=== PATIENT | female | born 1945 | race Caucasian/White ===

== ENCOUNTER 2022-11-17 12:19 | Outpatient (REF) | payer MEDICARE, SELFPAY ==
--- NOTE | ~2022-11-17 | XR_ITS ---
EXAMINATION: XR CHEST CLINICAL INFORMATION: Cough. COMPARISON: 04/20/2008 chest radiographs. TECHNIQUE: 2 views of the chest were obtained. FINDINGS: Mild coarsened interstitial markings are seen bilaterally without focal infiltrate or pleural effusions. The heart and mediastinal structures are unremarkable. XR/XR chest 2V IMPRESSION: Mild coarsened interstitial markings bilaterally are nonspecific, but are similar to the 2007 study. This could represent chronic interstitial changes. No definitive acute abnormality. Given the long interval between studies, if symptoms persist or worsen, short-term repeat PA and lateral views of chest are recommended to better assess for more acute change.
[2022-11-17 13:13] LABS: Binax Internal Control QC Valid; Binax Now Covid-19 Ag Negative (Negative); Binax Performed by: HO.BONILM
== END 2022-11-17 12:20 | disposition home or self-care (01) ==
LOC: HO.HMGCX 12:19
PROVIDERS: Visit Provider Physician Assistant Medical
DX: R05.9 Cough, unspecified (principal); Z20.822 Contact with and (suspected) exposure to COVID-19
CPT/HCPCS: 71046; 87811; C9803

== ENCOUNTER 2022-12-06 11:44 | Emergency (ER) | payer MEDICARE, SELFPAY ==
--- NOTE | ~2022-12-06 | XR_ITS ---
EXAMINATION: XR CHEST CLINICAL INFORMATION: Pain COMPARISON: 11/17/2022, 04/20/2008 TECHNIQUE: 2 views of the chest were obtained. FINDINGS: No peripheral infiltrate or effusion. Some central bronchial cuffing may indicate central airways disease. No peripheral infiltrate. There is no effusion. The cardiac silhouette is within normal limits. Calcification in the aortic arch. Some mild cephalization of the vasculature but this may be baseline for the patient. XR/XR chest 2V IMPRESSION: Some central bronchial thickening may represent airways disease such as asthma or bronchitis but there is no peripheral infiltrate. No effusion
--- NOTE | ~2022-12-06 | US_ITS ---
EXAMINATION: ULTRASOUND LOWER EXTREMITY ARTERIAL, LEFT TECHNIQUE: COLOR-FLOW DUPLEX IMAGING OF THE LEFT LOWER EXTREMITY ARTERIAL SYSTEM. VELOCITY MEASUREMENTS THROUGHOUT THE FEMORAL ARTERIES. CLINICAL INFORMATION: PAD evaluation claudication symptoms COMPARISON: None. Findings: LEFT FEMORAL RUNOFF VELOCITIES: The left common femoral artery measures 156cm/s and is biphasic. The left profunda femoral artery measures 58cm/s and is biphasic. Left proximal superficial femoral artery measures 146 cm/s and is biphasic. Mid superficial femoral artery measures 144cm/s and is biphasic. Distal left superficial femoral artery [id number] and is biphasic. Left popliteal velocity measures 130cm/s and is biphasic. Posterior tibial velocity is 61cm/s and flow is biphasic. Peroneal velocity is 29 cm/s and flow is monophasic Anterior tibial velocity not obtained. Dorsal pedis velocity not obtained. Left EDGARDO: Not obtained US/US arterial duplex LE LT IMPRESSION: 1. Patency of the visualized vasculature involving the left lower extremity. 2. Essentially biphasic waveforms throughout the visualized vasculature with monophasic waveforms of the peroneal artery suggesting elements of hemodynamic alterations in vascular flow.
--- NOTE | ~2022-12-06 | US_ITS ---
EXAMINATION: US VENOUS ULTRASOUND WITH DOPPLER LOWER EXTREMITY, LEFT CLINICAL INFORMATION: Pain COMPARISON: None available. TECHNIQUE: Ultrasound of the deep veins is performed from the hip to the calf with compression sonography and color and pulse Doppler assessment. Spectral analysis with color-flow imaging is performed. FINDINGS: There is normal venous compression and respiratory variation and augmented flow. The visualized common femoral vein, superficial femoral vein, profunda femoral vein, popliteal vein, and the trifurcation region shows no evidence of deep venous thrombosis. There is no significant popliteal fossa cyst. Contralateral common femoral vein is patent. If the patient's symptoms persist, followup ultrasound in 5 days 7 days might be of value to exclude proximal propagation from a non-visualized calf vein. US/US venous duplex LE LT IMPRESSION: No DVT demonstrated in the left lower extremity.
[2022-12-06 11:48] VITALS: BP 141/73; PULSE 105; RESP 20; TEMP 36.3; O2SAT 94; BMI 32.8
--- NOTE | 2022-12-06 11:50 | ECG_ITS ---
Test Reason : SOB Blood Pressure : / mmHG Vent. Rate : 090 BPM Atrial Rate : 090 BPM P-R Int : 130 ms QRS Dur : 086 ms QT Int : 374 ms P-R-T Axes : 076 068 010 degrees QTc Int : 457 ms Normal sinus rhythm Normal ECG When compared with ECG of 29-OCT-2011 20:10, Nonspecific T wave abnormality now evident in Lateral leads Referred By: Franklin Nuñez Electronically Signed By:Terrell Black
--- NOTE | 2022-12-06 11:52 | ED_ITS ---
HPI - General Adult General Chief complaint: General Medical Stated complaint: L leg pain Time Seen by Provider: 12/06/22 12:22 Source: patient Mode of arrival: wheelchair Limitations: no limitations History of Present Illness HPI narrative: Patient is a 76 year old female with a significant past medical history of COPD, PAD, DM, and a current smoker who presents today for left leg pain that started 3 days ago. She reports previous episode of leg pain about a year ago and was in a wheelchair for a few months after having stents placed in her right leg. Currently, she admits to intermittent claudication that is brought on by exertion; she states that lying down and resting alleviates symptoms. She describes intermittent pain in the left leg as pulling and reports that pain radiates throughout the entire leg, lasting for a short period of time. Patient denies any recent hospitalization and her mom of a brain aneurysm. She admits to cough and shortness of breath, which she attributes to the COPD. She denies fever, chills, swelling, chest pain or chest tightness. She reports no acute concerns at this time. Onset (ago): day(s) Location: left and lower extremity Radiation: other (radiates throughout entire left leg) Severity: moderate Severity scale (1-10): 8 Quality: aching and other ( pulling ) Pain Consistency: intermittent Relieving factors: rest Exacerbating factors: movement Associated symptoms: denies other symptoms Related Data Home Medications Medication Instructions Recorded Confirmed blood sugar diagnostic ([employer]Touch #10 ea 05/18/21 11/17/22 Ultra Test strips) blood-glucose meter (OneTouch #1 ea 05/18/21 11/17/22 Ultra2 Meter) lancets 33 gauge (OneTouch Delica #100 ea 05/18/21 11/17/22 Plus Lancet) Previous Rx's Medication Instructions Recorded albuterol sulfate 90 mcg/actuation 1 inh inhalation QID PRN shortness 11/17/22 aerosol inhaler (Ventolin HFA) of breath or wheezing #8.5 grams amoxicillin 875 mg-potassium 1 tab PO BID 7 days #14 tabs 11/17/22 clavulanate 125 mg tablet fluticasone 250 mcg-salmeterol 50 1 ea inhalation BID #60 ea 11/17/22 mcg/dose blistr powdr for inhalation (Wixela Inhub) prednisone 20 mg tablet 60 mg PO DAILY 3 days #30 tabs 11/17/22 aspirin 81 mg chewable tablet 81 mg PO DAILY #30 tabs 12/06/22 prednisone 20 mg tablet 20 mg PO DAILY 7 days #7 tabs 12/06/22 Allergies Allergy/AdvReac Type Severity Reaction Status Date / Time No Known Allergies Allergy Mild NKA Verified 12/06/22 11:47 Review of Systems Constitutional: Constitutional: Reports no additional constitutional complaints, Denies chills, Denies fever(s) and Denies night sweats Eyes: Eyes: Reports no additional eye complaints, Denies blurry vision, Denies change in vision, Denies diplopia, Denies eye discharge, Denies loss of vision and Denies eye pain ENT: Denies dizziness Cardiovascular: Cardiovascular: Reports no additional cardiovascular complaints, Denies chest pain, Denies lightheadedness, Denies Loss of Consciou sness and Reports dyspnea Respiratory: Respiratory: Reports no additional respiratory complaints, Reports chest congestion, Reports cough and Reports dyspnea Gastrointestinal: Gastrointestinal: Reports no additional gastrointestinal complaints, Denies abdominal pain, Denies melena, Denies hematochezia, Denies change in bowel habits and Denies change in stool character Genitourinary: Genitourinary: Reports no additional female genitourinary complaints Musculoskeletal: Musculoskeletal: Reports no additional musculoskeletal complaints, Denies numbness and Denies tingling Neurologic: Denies dizziness, Denies loss of vision, Denies numbness and Denies tingling Psychiatric: Psychiatric: Reports no additional psychiatric complaints Endocrine: Endocrine: Reports no additional endocrine complaints Hematologic/Lymphatic: Hematologic/Lymphatic: Reports no additional hematologic/lymphatic complaints Allergic/Immunologic: Allergic/Immunologic: Reports no additional allergic/immunologic complaints PMFSH Past Medical History Attestation statement: The following information was validated with the patient. Source: old records reviewed Social History Social History Patient Tobacco Use Status: Current everyday Tobacco user Advance Directives: No Physical Exam ED Vital Signs: Vital Signs - 24 hr 12/06/22 11:48 Temperature 97.4 F Pulse Rate 105 H Respiratory Rate 20 Blood Pressure 141/73 H Pulse Oximetry 94 Oxygen Delivery Method Room Air BMI result Body Mass Index 32.8 Const General: cooperative, no acute distress, alert and awake Nutritional Appearance: well nourished Orientation/consciousness: patient oriented x3 Limitations: no limitations HENMT Head: Yes normal to inspection and Yes atraumatic Ears: hearing grossly normal bilaterally, external ears normal and other (hearing slightly impaired) General nose exam: Normal external nose present, no nasal discharge noted and no epistaxis Face and sinus: Yes normal facial exam, No abrasion and No laceration Mouth: Normal oral and palatal mucosa present Eyes General: appearance normal, both eyes and all related structures EOM: EOMs intact bilaterally Neck Neck: Yes normal visual inspection, Yes full ROM and Yes no lymphadenopathy Chest Chest palpation & inspection: normal inspection of the chest Resp Effort & Inspection: normal respiratory effort, able to speak in complete sentences and other (wheezing noted in upper lobes) GI Inspection: Yes normal to inspection Skin General skin exam: no rashes or lesions noted Neuro General: patient oriented x3 and moves all extremities Cognition (Neuro): normal cognition Motor exam (neuro): 5/5 motor strength present throughout Sensory Exam: Normal double simultaneous stimulation for sensation Coordination: [id number] test normal Extrem General: Yes normal to inspection, Yes full ROM, Yes capillary refill normal and Yes no clubbing, cyanosis or edema Psych Appearance: grossly normal Mental Status: mental status grossly normal Affect: normal affect Attitude: cooperative Thought process: Normal thought process present Thought content: Normal thought content present Insight: Good insight present (Psych) Course Course Course Narrative: 76-year-old female with past medical history significant for COPD, not on oxygen, dementia, peripheral vascular disease presents for evaluation of left lower extremity pain. Per the daughter, the patient symptoms started 3 days ago. Denies any known injury. The patient reports a history of stents in the left lower extremity due to peripheral vascular disease. On exam, the extremity is warm, dry, well perfused, 1+ PT pulse on left. Lungs on auscultation have diffuse expiratory wheezing. Vital signs are stable. Plan for labs, chest x- ray, ultrasound the left lower extremity Medical Decision Making Medical Decision Making MDM Narrative: Patient is a 76 year old assigned female at with a history of COPD, PAD, and DM presenting to the emergency department today with left lower leg pain. Patient's physical exam was as noted in the physical exam portion of this chart. Patient's blood work was unremarkable. Patient's EKG was unremarkable. Patient's chest x-ray showed no acute process. Patient's venous US of the LLE showed no acute DVT. Patient's arterial US of the LLE showed essentially biphasic waveform s throughout the visualized vasculature with monophasic waveforms of the peroneal artery suggesting elements of hemodynamic alterations in vascular flow. I spoke with the vascular provider slot machine floor person who recommended the patient follow up outpatient and be started on an 81mg daily aspirin. I explained my physical exam findings as well as all test results to the patient and the patient's daughter. I answered all questions asked by the patient and the patient's daughter. I stressed the importance of the patient taking her medication as prescribed. I stressed the importance of the patient following up with her primary care provider and a vascular specialist. I stressed the importance of the patient returning to the emergency department immediately if her symptoms were to worsen or if she were to develop any dizziness, shortness of breath, difficulty breathing, chest pain, blurry vision, loss of vision, nausea, vomiting, abdominal pain, fever, chills, back pain, or any other complaints. Patient and the patient's daughter verbalized agreement and understanding with this treatment plan and discharge. Differential Diagnosis Differential Diagnoses: The differential diagnosis associated with the presentation includes left lower leg pain, claudication, DVT Admission/Observation Consideration of admission/observation: Escalation of care including admission/observation considered Patient would have been admitted to the hospital had his work up had any findings where hospital admission was appropriate. Consult Healthcare Provider Management of the patient was discussed with: Steam Press Operator (spoke with vascular team as noted in the MDM portion of this chart.) Lab Data [facility] Lab Attestation statement: I reviewed the patient's lab results. My interpretation of these studies and their corresponding values is that they are grossly normal. 12/06/22 12:50 12/06/22 12:50 Labs: Lab Results 12/06/22 12/06/22 12/06/22 Range/Units 12:50 12:50 12:50 WBC 8.9 (4.8-10.8) X10*3/uL RBC 4.71 (4.20-5.50) X10*6/uL Hgb 13.2 (12.0-16.0) g/dl Hct 41.1 (37.0-47.0) % MCV 87.3 (80.0-98.0) fL MCH 28.0 (27.0-33.0) pg MCHC 32.1 (31.0-35.0) g/dl RDW 13.0 (11.0-16.0) % Plt Count 167 (160-400) X10*3/uL MPV 8.1 L (9.4-12.3) fL Immature Gran % (Auto) 0.2 (0.0-0.4) % Neut % (Auto) 73.3 H (45-73) % Lymph % (Auto) 18.9 L (20-40) % Sharp % (Auto) 5.6 (2-11) % Eos % (Auto) 1.1 (0-4) % Baso % (Auto) 0.9 (0-2) % Lymph # (Auto) 1.7 (1.2-4.9) X10*3/uL Sharp # (Auto) 0.5 (0.1-1.2) X10*3/uL Eos # (Auto) 0.1 (0.0-0.4) X10*3/uL Baso # (Auto) 0.1 (0.0-0.2) X10*3/uL Abs Immat Gran (auto) 0.02 (0.00-0.03) X10*3/uL Absolute Neuts (auto) 6.5 (2.0-8.3) x10*3/uL Absolute Nucleated RBC 0.000 (0.0-0.012) X10*3/uL Nucleated RBC % (auto) 0.0 (0.0-0.2) /100WBC PT 10.5 (10.0-13.1) SEC INR 0.9 (0.9-1.1) APTT 30.8 (26.0-36.4) SEC D-Dimer High Sensitivty 237 NG/ML Sodium (135-145) mmol/L Potassium (3.3-5.1) mmol/L Chloride (96-108) mmol/L Carbon Dioxide (22-29) mmol/L Anion Gap (12-20) BUN (9-16) mg/dL Creatinine (0.5-1.4) mg/dL Estim Creat Clear Calc Estimated GFR Random Glucose (60-115) mg/dL Calcium (8.4-10.2) mg/dL B-Natriuretic Peptide 46 (<100) pg/mL COVID-19 ([facility]NYA) (Negative) COVID-19 Clin Com 06/02/2012/06/22 12/06/22 Range/Units 12:50 12:50 12:56 WBC (4.8-10.8) X10*3/uL RBC (4.20-5.50) X10*6/uL Hgb (12.0-16.0) g/dl Hct (37.0-47.0) % MCV (80.0-98.0) fL MCH (27.0-33.0) pg MCHC (31.0-35.0) g/dl RDW (11.0-16.0) % Plt Count (160-400) X10*3/uL MPV (9.4-12.3) fL Immature Gran % (Auto) (0.0-0.4) % Neut % (Auto) (45-73) % Lymph % (Auto) (20-40) % Sharp % (Auto) (2-11) % Eos % (Auto) (0-4) % Baso % (Auto) (0-2) % Lymph # (Auto) (1.2-4.9) X10*3/uL Sharp # (Auto) (0.1-1.2) X10*3/uL Eos # (Auto) (0.0-0.4) X10*3/uL Baso # (Auto) (0.0-0.2) X10*3/uL Abs Immat Gran (auto) (0.00-0.03) X10*3/uL Absolute Neuts (auto) (2.0-8.3) x10*3/uL Absolute Nucleated RBC (0.0-0.012) X10*3/uL Nucleated RBC % (auto) (0.0-0.2) /100WBC PT (10.0-13.1) SEC INR (0.9-1.1) APTT (26.0-36.4) SEC D-Dimer High Sensitivty Cancelled NG/ML Sodium 141 (135-145) mmol/L Potassium 4.2 (3.3-5.1) mmol/L Chloride 109 H (96-108) mmol/L Carbon Dioxide 25 (22-29) mmol/L Anion Gap 11 L (12-20) BUN 7 L (9-16) mg/dL Creatinine 0.77 (0.5-1.4) mg/dL Estim Creat Clear Calc 55.0 Estimated GFR > 60 Random Glucose 177 H (60-115) mg/dL Calcium 9.5 (8.4-10.2) mg/dL B-Natriuretic Peptide (<100) pg/mL COVID-19 ([facility]NYA) Negative (Negative) COVID-19 Clin Com See Note Independent Interpretation I performed an independent interpretation of an: EKG, Plain X-Ray and Ultrasound Interpretation: Vent. Rate: 090 BPM ? ? Atrial Rate: 090 BPM P-R Int: 130 ms? QRS Dur: 086 ms QT Int: 374 ms ? ? ? P-R-T Axes: 076 068 010 degrees QTc Int: 457 ms ? Normal sinus rhythm Normal ECG When compared with ECG of 29-OCT-2011 20:10, Nonspecific T wave abnormality now evident in Lateral leads ? Electronically Signed By:Terrell Blcak Dictated By: Terrell Black MD Signed By: Electronically signed by Terrell Black MD 12/07/22 1740 My interpretation is in agreement with the radiologist's impression of this imaging study. EXAMINATION: XR CHEST CLINICAL INFORMATION: Pain COMPARISON: 11/17/2022, 04/20/2008 TECHNIQUE: 2 views of the chest were obtained. FINDINGS: No peripheral infiltrate or effusion. Some central bronchial cuffing may indicate central airways disease. No peripheral infiltrate. There is no effusion. The cardiac silhouette is within normal limits. Calcification in the aortic arch. Some mild cephalization of the vasculature but this may be baseline for the patient. XR/XR chest 2V IMPRESSION: Some central bronchial thickening may represent airways disease such as asthma or bronchitis but there is no peripheral infiltrate. No effusion Dictated By: Phill Wren MD Signed By: Electronically signed by Phill Wren MD 12/06/22 1426 EXAMINATION:? US VENOUS ULTRASOUND WITH DOPPLER LOWER EXTREMITY, LEFT CLINICAL INFORMATION:? Pain COMPARISON:? None available. TECHNIQUE: Ultrasound of the deep veins is performed from the hip to the calf with compression sonography and color and pulse Doppler assessment. Spectral analysis with color-flow imaging is performed. FINDINGS: There is normal venous compression and respiratory variation and augmented flow. The visualized common femoral vein, superficial femoral vein, profunda femoral vein, popliteal vein, and the trifurcation region shows no evidence of deep venous thrombosis. ? There is no significant popliteal fossa cyst. Contralateral common femoral vein is patent. If the patient's symptoms persist, followup ultrasound in 5 days 7 days might be of value to exclude proximal propagation from a non-visualized calf vein. US/US venous duplex [facility] IMPRESSION: No DVT demonstrated in the left lower extremity. Dictated By: Parish Smith MD Signed By: Electronically signed by Parish Smith MD 12/06/22 1259 ------ EXAMINATION: ULTRASOUND LOWER EXTREMITY ARTERIAL, LEFT TECHNIQUE: COLOR-FLOW DUPLEX IMAGING OF THE LEFT LOWER EXTREMITY ARTERIAL SYSTEM. VELOCITY MEASUREMENTS THROUGHOUT THE FEMORAL ARTERIES. CLINICAL INFORMATION: PAD evaluation claudication symptoms COMPARISON: None. Findings: LEFT FEMORAL RUNOFF VELOCITIES: The left common femoral artery measures 156cm/s and is biphasic. The left profunda femoral artery measures 58cm/s and is biphasic. Left proximal superficial femoral artery measures 146 cm/s and is biphasic. Mid superficial femoral artery measures 144cm/s and is biphasic. Distal left superficial femoral artery [id number] and is biphasic. Left popliteal velocity measures 130cm/s and is biphasic. Posterior tibial velocity is 61cm/s and flow is biphasic. Peroneal velocity is 29 cm/s and flow is monophasic Anterior tibial velocity not obtained. Dorsal pedis velocity not obtained. Left EDGARDO: Not obtained US/US arterial duplex LE LT IMPRESSION: 1.? Patency of the visualized vasculature involving the left lower extremity. 2.? Essentially biphasic waveforms throughout the visualized vasculature with monophasic waveforms of the peroneal artery suggesting elements of hemodynamic alterations in vascular flow. Dictated By: Parish Smith MD Signed By: Electronically signed by Parish Smith MD 12/06/22 4241 Independent Historian Clinical information obtained from an independent historian. History obtained from or confirmed by: Other (patient's daughter provided additional history and confirmed history provided by the patient) Chronic Conditions Patient?s care impacted by: Diabetes and Other (COPD, PAD) Critical Care Time Critical Care Time Critical Care Time: Yes Total Critical Care Time: 30 Attestation: I spent 30 minutes of Critical Care Time with this patient. This does not include time spent on separately reported billable procedures. Discharge Plan Discharge Clinical Impression: Claudication, COPD (chronic obstructive pulmonary disease) Patient Disposition: Home, Self-Care Instructions: How to Stop Smoking (ED), COPD (Chronic Obstructive Pulmonary Disease) (DC), Peripheral Artery Disease (ED) Additional Instructions: Begin taking 81mg of aspirin a day. Follow up with your primary care provider and a vascular surgeon. Return to the emergency department immediately if your symptoms worsen or if you develop any dizziness, shortness of breath, difficulty breathing, chest pain, blurry vision, loss of vision, nausea, vomiting, abdom inal pain, fever, chills, back pain, or any other complaints. Prescriptions: New prednisone 20 mg tablet 20 mg PO DAILY 7 Days Qty: 7 0RF aspirin 81 mg tablet,chewable 81 mg PO DAILY Qty: 30 0RF No Action (DME) OneTouch Ultra Test Strip See Rx Instructions .ROUTE .MEDSUPPLY Qty: 10 Rx Instructions: As directed (DME) lancets [OneTouch Delica Plus Lancet] 33 gauge misc See Rx Instructions topical DAILY Qty: 100 Rx Instructions: As directed (DME) blood-glucose meter [OneTouch Ultra2 Meter] Misc See Rx Instructions Not Applicable .MEDSUPPLY Qty: 1 Rx Instructions: As directed albuterol sulfate [Ventolin HFA] 90 mcg/actuation HFA aerosol inhaler 1 inh inhalation QID PRN (Reason: shortness of breath or wheezing) Qty: 8.5 1RF fluticasone propion-salmeterol [Wixela Inhub] 250-50 mcg/dose blister with device 1 ea inhalation BID Qty: 60 0RF amoxicillin-pot clavulanate 875-125 mg tablet 1 tab PO BID 7 Days Qty: 14 0RF prednisone 20 mg tablet 60 mg PO DAILY 3 Days Qty: 30 0RF Rx Instructions: then take 2 and half tabs daily for 3 days, then take 2 tabs daily for 3 days, then take 1 and half tabs daily for 3 days, and then take 1 tab daily for 3 days Referrals: [facility] [place] [facility] [Provider Group] (Call to establish and follow up with a primary care provider. If you already have a primary care provider, please follow up with them.) [facility] [place] Primary Care, Shadia [Provider Group] (Call to establish and follow up with a primary care provider. If you already have a primary care provider, please follow up with them.) [facility] [place] Primary Care,Lilian [Provider Group] (Call to establish and follow up with a primary care provider. If you already have a primary care provider, please follow up with them.) Mika Packer MD [Physician] - (Call to establish and follow up with a vascular surgeon.) Interventions: ED Discharge Assessment Last Done: 12/06/22 14:48 Discharge Date/Time: 12/06/22 14:49 Print Language: Georgian
[2022-12-06 13:00] LABS: MANUAL DIFF FLAG NO
[2022-12-06 13:05] LABS: Basophils Absolute Auto 0.1 X10*3/uL (0.0-0.2); Basophils Percent Auto 0.9 % (0-2); Eosinophils Absolute Auto 0.1 X10*3/uL (0.0-0.4); Eosinophils Percent Auto 1.1 % (0-4); Hematocrit 41.1 % (37.0-47.0); Hemoglobin 13.2 g/dl (12.0-16.0); Imm Gran Abs Auto 0.02 X10*3/uL (0.00-0.03); Imm Gran Pct Auto 0.2 % (0.0-0.4); Lymphocytes Absolute Auto 1.7 X10*3/uL (1.2-4.9); Lymphocytes Percent Auto 18.9 % (20-40); Mean Corpuscular HGB Conc 32.1 g/dl (31.0-35.0); Mean Corpuscular Volume 87.3 fL (80.0-98.0); Mean Platelet Volume 8.1 fL (9.4-12.3); Monocytes Absolute Auto 0.5 X10*3/uL (0.1-1.2); Monocytes Percent Auto 5.6 % (2-11); Neutrophils Absolute Auto 6.5 x10*3/uL (2.0-8.3); Neutrophils Percent Auto 73.3 % (45-73); Platelet Count 167 X10*3/uL (160-400); Red Blood Count 4.71 X10*6/uL (4.20-5.50); White Blood Count 8.9 X10*3/uL (4.8-10.8)
[2022-12-06 13:16] LABS: COVID-19 Test Negative (Negative); IDNOW Serial# 9DB6401D
[2022-12-06 13:19] LABS: Anion Gap 11 (12-20); Blood Urea Nitrogen 7 mg/dL (9-16); Calcium 9.5 mg/dL (8.4-10.2); Carbon Dioxide 25 mmol/L (22-29); Chloride 109 mmol/L (96-108); Estimated Glomerular Filt Rate > 60; Glucose Random 177 mg/dL (60-115); Potassium 4.2 mmol/L (3.3-5.1); Sodium 141 mmol/L (135-145)
[2022-12-06 13:20] LABS: INTERNATIONAL NORM RATIO 0.9 (0.9-1.1); Prothrombin Time 10.5 SEC (10.0-13.1)
[2022-12-06 13:23] LABS: D Dimer High Sensitivity 237 NG/ML; Partial Thromboplastin Time 30.8 SEC (26.0-36.4)
[2022-12-06 13:25] LABS: B Type Natriuretic Peptide 46 pg/mL (<100)
== END 2022-12-06 14:49 | disposition home or self-care (01) ==
PROVIDERS: Physician Assistant; Emergency Provider Emergency Medicine
DX: I73.9 Peripheral vascular disease, unspecified (principal); J44.9 Chronic obstructive pulmonary disease, unspecified; M79.605 Pain in left leg; E11.9 Type 2 diabetes mellitus without complications; F17.210 Nicotine dependence, cigarettes, uncomplicated; Z79.899 Other long term (current) drug therapy
CPT/HCPCS: 36415; 71046; 80048; 83880; 85025; 85379; 85610; 85730; 87635; 93005; 93926; 93971; 99283; 99284

== ENCOUNTER 2023-06-01 12:25 | Inpatient (IN) | payer OTHER, SELFPAY ==
[2023-06-01] VITALS (11 sets, daily range): BP systolic 125–164; BP diastolic 55–93; PULSE 95–122; RESP 14–24; TEMP 37–37.3; O2SAT 85–98; BMI 33.3; BMI 22.2
--- NOTE | ~2023-06-01 | MR_ITS ---
EXAMINATION: MR BRAIN WITHOUT CONTRAST CLINICAL INFORMATION: Left parafalcine frontoparietal infarct. COMPARISON: CT head from 06/07/2023. TECHNIQUE: MRI of the brain was obtained using routine sequences without contrast. FINDINGS: Region of restricted diffusion within the parasagittal left frontoparietal lobes. Associated T2 FLAIR hyperintensity. No evidence of hemorrhagic transformation. No additional restricted diffusion. Chronic region of encephalomalacia within the right occipital lobe. No evidence of acute or chronic hemorrhagic products on heme-sensitive imaging. Scattered and partially confluent periventricular, deep white matter, and brainstem T2 FLAIR hyperintensities consistent with moderate underlying microangiopathy. Proportional prominence of the ventricles and sulcal spaces without evidence of obstructive hydrocephalus. No abnormal mass effect. No midline shift. Normal appearance of the pituitary gland. Normal positioning of the cerebellar tonsils. Normal arterial and venous vascular flow voids are present. Normal, homogeneous marrow signal. Mild mucosal thickening of the paranasal sinuses. Moderate leftward nasal septal deviation. Moderate bilateral mastoid effusions. Bilateral lens extractions. MR/MR head/brain wo con IMPRESSION: 1. 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 No evidence of hemorrhagic conversion. 2. Chronic region of encephalomalacia within the right occipital lobe. Moderate underlying microangiopathy and generalized cerebral volume loss.
--- NOTE | ~2023-06-01 | US_ITS ---
EXAMINATION: US EXTRACRANIAL CAROTID DUPLEX, BILATERAL CLINICAL INFORMATION: Acute left frontoparietal parasagittal infarct. COMPARISON: None available. TECHNIQUE: Real-time ultrasound and Doppler techniques (integrating B-mode 2-D vascular images, Doppler spectral analysis and color-flow Doppler imaging) were utilized to interrogate the extracranial carotid arteries, the vertebral arteries and proximal subclavian arteries bilaterally. The degree of stenosis is determined by criteria similar to NASCET. FINDINGS: Right Side: 1. There is moderate atherosclerotic plaque seen in the bifurcation/proximal ICA region. 2. The common carotid artery PSV proximally is 151 cm/s and distally 117 cm/s. 3. The proximal internal carotid artery velocities are 207 cm/s systolic and 17 cm/s diastolic. 4. The proximal external carotid artery PSV is 241 cm/s. 5. The vertebral artery shows antegrade flow. 6. The subclavian artery velocity is 430 cm/s. Left Side: 1. There is mild atherosclerotic plaque seen in the bifurcation/proximal ICA region. 2. The common carotid artery PSV proximally is 159 cm/s and distally 171 cm/s. 3. The proximal internal carotid artery velocities are 122 cm/s systolic and 22 cm/s diastolic. 4. The proximal external carotid artery PSV is 211 cm/s. 5. The vertebral artery shows antegrade flow. 6. The subclavian artery velocity is 218 cm/s. US/US carotid duplex BI IMPRESSION: 1. RIGHT: Moderate, hemodynamically significant stenosis of the proximal right internal carotid artery corresponding to a 50-79% stenosis by velocity criteria. 2. LEFT: Minimal, non-hemodynamically significant stenosis of the proximal left internal carotid artery corresponding to a 0-49% stenosis by velocity criteria. 3. Bilateral subclavian artery stenoses. Antegrade flow in both vertebral arteries.
--- NOTE | ~2023-06-01 | CT_ITS ---
EXAMINATION: CT angio head neck stroke CLINICAL INFORMATION: Question embolic source of anterior cerebral artery cerebrovascular accident. COMPARISON: Prior 06/07/2023. TECHNIQUE: Subscription Agent images were obtained. A CT angiogram of the head and neck was performed in the arterial phase after the intravenous administration of 50 mL Omnipaque 350. Pre and delayed postcontrast images of the head were also obtained. 3D images were processed on an independent workstation under concurrent supervision. Arterial stenoses are measured in accordance with NASCET criteria or similar method if applicable. This CT examination was performed using dose optimization techniques as appropriate, including one or more of the following: Automated exposure control, iterative reconstruction, and adjustment of technique factors (mA and/or kVp) according to patient size (this includes techniques or standardized protocols for targeted exams where dose is matched to indication/reason for exam). Fleischner Society criteria for the followup of incidental pulmonary nodules was implemented if appropriate. 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 An addition this acute finding there is a chronic cortical infarct within the right occipital lobe and scattered chronic small vessel ischemic changes primarily involving the periventricular white matter. No acute hemorrhage. Postcontrast images reveal no abnormal intracranial mass or enhancement. No intracranial mass effect or hydrocephalus. The calvarium and skull base are intact. There are bilateral mastoid effusions. Mild to moderate paranasal sinus disease primarily affecting the ethmoid air cells. CT angiogram neck: The timing of contrast injection is suboptimal. The diagnostic accuracy of this examination is therefore limited. Heavily calcified atheromatous plaque involves the aortic arch apex. There is high-grade focal narrowing at the origin of the left subclavian artery. The brachiocephalic artery is not well assessed on this examination due to patient motion and the timing of the contrast injection. Common carotid arteries are grossly patent. Heavily calcified atheromatous plaque involves both carotid bifurcations. There is 50% stenosis at the origin of left internal carotid artery and 20% stenosis at the origin of the right internal carotid artery. Cervical vertebral arteries are grossly patent. CT angiogram head: Atheromatous calcification causes at least mild irregular narrowing of the cavernous segments of both internal carotid arteries. The intradural vertebral artery segments and basilar artery are patent. Anterior, middle, and posterior cerebral complexes are patent. No intracranial large vessel occlusion. The timing of the contrast injected provides adequate opacification of the dural venous sinuses which are patent. Other: Soft tissues of the neck including the thyroid gland are normal. Lung apices are grossly clear. There is multilevel degenerative spondylosis of the cervical spine. There is a relatively exuberant disc osteophyte complex at the level of C1-C2 causing dorsolateral indentation of the thecal sac and at least moderate canal stenosis at this level. If there are clinical symptoms of compressive myelopathy then a dedicated cervical spine MRI can be obtained for better anatomic characterization of the cord and canal. 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 No acute hemorrhage. There are chronic cortical infarcts within the right occipital lobe and scattered chronic small vessel ischemic changes primarily involving the periventricular white matter. No abnormal intracranial mass or enhancement. Heavily calcified atheromatous plaque causes high-grade focal narrowing at the origin of the left subclavian artery. The brachiocephalic artery is not well assessed on this examination due to patient motion and the timing of the contrast injection. Heavily calcified atheromatous plaque also involves both carotid bifurcations. There is 50% stenosis at the origin of left internal carotid artery and 20% stenosis at the origin of the right internal carotid artery. Atheromatous calcification causes at least mild irregular narrowing of the cavernous segments of both internal carotid arteries. No intracranial large vessel occlusion. This critical result was discussed with Dr Buenrostro at 3:28 PM on 06/08/2023 and it was ascertained that the content and urgency of the report was understood at the time of direct communication.
--- NOTE | ~2023-06-01 | XR_ITS ---
EXAMINATION: XR CHEST CLINICAL INFORMATION: Shortness of breath COMPARISON: Frontal view 12/06/22 TECHNIQUE: Upright frontal portable view of the chest was obtained. FINDINGS: Metallic density superimposes over the aorticopulmonary window region. Recommend inspection of the patient. Devices overlie the patient. The cardiac size is within normal limits. There is no large hilar mass. Scattered prominent central airways. No dense consolidation or major zone of atelectasis. No alveolar edema. No significant pleural fluid or pneumothorax. Possible trace blunting right lateral costophrenic sulcus region Surgical clips in epigastric area. Proliferative changes around both shoulders. No evidence of pneumoperitoneum XR/XR chest 1V IMPRESSION: No focal pneumonia or alveolar edema. Metallic density superimposes over the aorticopulmonary window region. Recommend inspection of the patient
--- NOTE | ~2023-06-01 | CT_ITS ---
EXAMINATION: CT HEAD WITHOUT CONTRAST CLINICAL INFORMATION: Acute mental status change COMPARISON: Previous head CT from 2012 TECHNIQUE: Contiguous axial imaging was performed from the skull base to vertex without intravenous administration of contrast. This CT examination was performed using dose optimization techniques as appropriate, variously including the following: *Automated exposure control *Adjustment of mA and/or kV according to patient size (this includes techniques or standardized protocols for targeted exams where dose is matched to indication/reason for exam; i.e. extremities or head) *Use of iterative reconstruction technique DLP: 652 mGy-cm FINDINGS: There is no evidence of an extra-axial collection. There is no evidence of intra-axial or extra-axial hemorrhage. The ventricles and extra-axial CSF spaces are prominent suggestive of generalized atrophy. There is nonspecific periventricular white matter disease. There is low-attenuation seen in the right occipital lobes suggestive of an infarct. This is new in the interval from September 2011 but appears old. There is parafalcine low-attenuation in the subcortical white matter of the left posterior frontal and anterior parietal lobes also suggestive of infarct. This is age indeterminate but also new in the interval from 2011 exam. No significant mass effect. Review at bone windows demonstrates no skull fracture. Visualized paranasal sinuses are clear. There is some soft tissue opacification of the bilateral mastoid air cells. Middle ears appear clear. CT/CT head/brain wo IV con IMPRESSION: Probable left parafalcine frontal parietal infarct, age indeterminate. Probable right occipital infarct, probably old. Findings could be better evaluated with brain MRI/MRA. Small bilateral mastoid effusions. Findings will be communicated by the [facility] fast food shift supervisor
--- NOTE | 2023-06-01 12:43 | ECG_ITS ---
Test Reason : DYSPNEA Blood Pressure : / mmHG Vent. Rate : 110 BPM Atrial Rate : 110 BPM P-R Int : 118 ms QRS Dur : 092 ms QT Int : 358 ms P-R-T Axes : 064 072 012 degrees QTc Int : 484 ms Sinus tachycardia Otherwise normal ECG When compared with ECG of 06-DEC-2022 12:21, No significant change was found Referred By: Generic ED Physician Electronically Signed By:ALICIA RIVAS MD
--- NOTE | 2023-06-01 12:45 | ED.GENADULT ---
HPI - General Adult General Chief complaint: Dyspnea Stated complaint: SOB Time Seen by Provider: 06/01/23 12:45 Source: patient, EMS and RN notes reviewed Mode of arrival: EMS Limitations: no limitations History of Present Illness HPI narrative: Patient is a 77-year-old with unknown past medical history presenting to the emergency department with complaint of worsening shortness of breath as well as productive cough for the past week. States cough is productive of yellow sputum. Denies fevers. Denies chest pain or palpitations. Denies lightheadedness or dizziness, syncope. Denies any abdominal pain, nausea, vomiting, diarrhea or constipation. Denies recent lower extremity edema, calf pain or swelling. Found to be hypoxic on EMS arrival, improved with nebulizer treatment. Granddaughter reports other family members have been sick with similar symptoms. MD complaint: shortness of breath, cough Onset (ago): week(s) Associated symptoms: cough Treatments prior to arrival: none Related Data Home Medications Medication Instructions Recorded Confirmed blood sugar diagnostic (OrthohubTouch #10 ea 05/18/21 11/17/22 Ultra Test strips) blood-glucose meter (OrthohubTouch #1 ea 05/18/21 11/17/22 Ultra2 Meter) lancets 33 gauge (OneTouch Delica #100 ea 05/18/21 11/17/22 Plus Lancet) Previous Rx's Medication Instructions Recorded albuterol sulfate 90 mcg/actuation 1 inh inhalation QID PRN shortness 11/17/22 aerosol inhaler (Ventolin HFA) of breath or wheezing #8.5 grams amoxicillin 875 mg-potassium 1 tab PO BID 7 days #14 tabs 11/17/22 clavulanate 125 mg tablet fluticasone 250 mcg-salmeterol 50 1 ea inhalation BID #60 ea 11/17/22 mcg/dose blistr powdr for inhalation (Wixela Inhub) prednisone 20 mg tablet 60 mg (3 x 20 mg) PO DAILY 3 days 11/17/22 #30 tabs aspirin 81 mg chewable tablet 81 mg PO DAILY #30 tabs 12/06/22 prednisone 20 mg tablet 20 mg PO DAILY 7 days #7 tabs 12/06/22 Allergies Allergy/AdvReac Type Severity Reaction Status Date / Time No Known Allergies Allergy Mild NKA Verified 06/01/23 12:43 Review of Systems Review of Systems: As per HPI. Yes all other systems are reviewed and are negative Constitutional: Constitutional: Reports as per HPI [facility] Social History Social History Patient Tobacco Use Status: Current everyday Tobacco user Smoked in Last 30 Days: Yes Use of substances other than those prescribed or required for medical reasons: No Advance Directives: No Advance Directives Information Provided: Yes Physical Exam ED Vital Signs: Vital Signs - 24 hr 06/01/23 12:34 06/01/23 12:58 06/01/23 13:32 Temperature 99.0 F Pulse Rate 113 H 95 Respiratory Rate 24 H 16 22 H Blood Pressure 164/93 H Pulse Oximetry 93 Oxygen Delivery Method Nasal Cannula Oxygen Flow Rate 06/01/23 13:37 06/01/23 14:00 Temperature 99.0 F 98.8 F Pulse Rate 95 108 H Respiratory Rate 22 H 14 Blood Pressure 164/93 H 125/55 L Pulse Oximetry 93 94 Oxygen Delivery Method Nasal Cannula Nasal Cannula Oxygen Flow Rate 4 4 BMI result Body Mass Index 33.3 Vital signs have been reviewed and appear to be correct. Blood pressure elevated. Heart rate tachycardic initially likely due to nebulizer treatment. Respiratory rate slightly tachypneic. Temperature normal. Oxygen saturation normal. Const General: cooperative, healthy appearing and no acute distress Orientation/consciousness: oriented to person, oriented to place, oriented to time and patient oriented x3 Limitations: no limitations HENMT Head: Yes normocephalic and Yes atraumatic Ears: external ears normal General nose exam: Normal external nose present Face and sinus: Yes face symmetric Mouth: oropharynx normal and moist mucous membranes Throat: Yes uvula midline Eyes Pupils: Equal, round and reactive pupils present Neck Neck: Yes normal visual inspection and Yes supple Resp Effort & Inspection: normal respiratory effort and able to speak in complete sentences Auscultation: wheezes expiratory wheezes, inspiratory wheezes and throughout Cardio Rate: regular rate Rhythm: regular rhythm Heart sounds: S1 normal heart sound present and S2 normal heart sound present GI Palpation (GI): Soft to palpation and nontender Auscultation: normoactive bowel sounds General: Yes no CVA tenderness Back/Spine/Pelvis Back: no CVA tenderness Skin General skin exam: elasticity normal and turgor normal Neuro General: oriented to person, oriented to place, oriented to time, patient oriented x3, moves all extremities, no focal motor deficits and CN's II-XI intact bilaterally Cranial nerves: Yes Equal, round and reactive pupils present Cognition (Neuro): normal cognition Extrem General: Yes full ROM, Yes no pedal edema and Yes no calf tenderness Psych Mental Status: mental status grossly normal Affect: normal affect Thought process: Normal thought process present Course Course Course Narrative: 16:30 Labs notable for mild leukocytosis, thrombocytopenia, troponin of 27, will repeat in 3 hours, lactic acid of 3.3, pH of 7.29. IV fluids ordered. EKG shows sinus tachycardia. X-ray notable for no focal pneumonia. My interpretation is in agreement with the radiologist's interpretation. Low suspicion for/unlikely severe sepsis. Flu swab positive for flu A, Tamiflu ordered. Plan for admission, tiger text to Dr. Alamo. Medications Administered Discontinued Medications Generic Name Dose Route Start Last Admin Trade Name Freq PRN Reason Stop Dose Admin Albuterol Sulfate 5 mg/ 0 mg 06/01/23 12:52 06/01/23 12:55 Albuterol/Ipratropium 3 ml INHALE 06/01/23 12:53 2.5 each ONCE ONE Administration Ceftriaxone Sodium 1 gm/ 50 mls @ 100 mls/hr 06/01/23 12:46 06/01/23 15:19 Sodium Chloride IV 06/01/23 13:15 Infused ONCE ONE Infusion Sodium Chloride 1,000 mls @ 999 mls/hr 06/01/23 14:45 06/01/23 15:18 Ns IV 06/01/23 15:45 999 mls/hr .Q1H1M DIANA Administration Medical Decision Making Medical Decision Making [facility] Narrative: 12:45 Patient is a 77-year-old with unknown past medical history presenting to the emergency department with complaint of worsening shortness of breath as well as productive cough for the past week. On exam patient is awake, A+Ox3, tachypneic, mildly tachycardic, afebrile, normal neurological exam without focal deficits, physical exam findings as above. Patient now reporting history of COPD. Given reported symptoms and physical exam findings, initial differential includes COPD exacerbation, viral illness, bronchitis, pneumonia. ED bronchodilator protocol ordered. Labs including cultures and lactic ordered, CXR, EKG. Do not suspect sepsis at this time. Please refer to course for remaining clinical decision making. Differential Diagnosis Differential Diagnoses: The differential diagnosis associated with the presentation includes As per [facility] Admission/Observation Consideration of admission/observation: Escalation of care including admission/observation considered Consult Healthcare Provider Management of the patient was discussed with: Hospitalist (Dr. Alamo) Lab Data [facility] Lab Attestation statement: I reviewed the patient's lab results. As per MDM 06/01/23 14:02 06/01/23 14:02 Labs: Lab Results 06/01/23 06/01/23 06/01/23 Range/Units 13:39 14:02 14:07 WBC 11.5 H (4.8-10.8) X10*3/uL RBC 5.01 (4.20-5.50) X10*6/uL Hgb 13.9 (12.0-16.0) g/dl Hct 43.7 (37.0-47.0) % MCV 87.2 (80.0-98.0) fL MCH 27.7 (27.0-33.0) pg MCHC 31.8 (31.0-35.0) g/dl RDW 13.5 (11.0-16.0) % Plt Count 117 L D (160-400) X10*3/uL MPV 8.3 L (9.4-12.3) fL Immature Gran % (Auto) 0.4 (0.0-0.4) % Neut % (Auto) 90.3 H (45-73) % Lymph % (Auto) 5.5 L (20-40) % [place] % (Auto) 3.1 (2-11) % Eos % (Auto) 0.1 (0-4) % Baso % (Auto) 0.6 (0-2) % Lymph # (Auto) 0.6 L (1.2-4.9) X10*3/uL [place] # (Auto) 0.4 (0.1-1.2) X10*3/uL Eos # (Auto) 0.0 (0.0-0.4) X10*3/uL Baso # (Auto) 0.1 (0.0-0.2) X10*3/uL Abs Immat Gran (auto) 0.05 H (0.00-0.03) X10*3/uL Absolute Neuts (auto) 10.4 H (2.0-8.3) x10*3/uL Absolute Nucleated RBC 0.000 (0.0-0.012) X10*3/uL Nucleated RBC % (auto) 0.0 (0.0-0.2) /100WBC Smear Tech's Comments VERIFIED VBG pH 7.29 L (7.32-7.43) VBG pCO2 47 mmHg VBG pO2 71 mmHg VBG HCO3 23 (22-26) mmol/L VBG O2 Saturation 92.0 % VBG Base Excess -3.3 mmol/L Sodium 139 (135-145) mmol/L Potassium 3.7 (3.3-5.1) mmol/L Chloride 105 (96-108) mmol/L Carbon Dioxide 22 (22-29) mmol/L Anion Gap 16 (12-20) BUN 9 (9-16) mg/dL Creatinine 0.85 (0.5-1.4) mg/dL Estim Creat Clear Calc 51.3 Estimated GFR > 60 Random Glucose 295 H (60-115) mg/dL Lactic Acid 3.3 H* (0.5-2.0) mmol/L Calcium 9.1 (8.4-10.2) mg/dL Troponin I High Sens 27.0 H (<3.5-17.0) ng/L Influenza Type A (PCR) POSITIVE A (Negative) Influenza Type B (PCR) NEGATIVE (Negative) RSV RNA Qual (PCR) NEGATIVE (Negative) SARS-CoV-2 RNA (RT-PCR) NEGATIVE (Negative) Independent Interpretation I performed an independent interpretation of an: Plain X-Ray Interpretation: No focal pneumonia Radiology Impression Discussion of test interpretation with radiology: I have reviewed the radiologist's reading. Radiologist Impression: XR/XR chest 1V IMPRESSION: No focal pneumonia or alveolar edema. Metallic density superimposes over the aorticopulmonary window region. Recommend inspection of the patient External Record Review External record reviewed: Inpatient record, Office record and Outpatient record Prescription Management I considered prescription management with: Antiviral and Antibiotic Discharge Plan Discharge Clinical Impression: Influenza A, Hypoxia Patient Disposition: Admitted As Inpatient Prescriptions: No Action prednisone 20 mg tablet 20 mg PO DAILY 7 Days Qty: 7 0RF aspirin 81 mg tablet,chewable 81 mg PO DAILY Qty: 30 0RF (DME) OneTouch Ultra Test Strip See Rx Instructions .ROUTE .MEDSUPPLY Qty: 10 Rx Instructions: As directed (DME) lancets [OneTouch Delica Plus Lancet] 33 gauge misc See Rx Instructions topical DAILY Qty: 100 Rx Instructions: As directed (DME) blood-glucose meter [OrthohubTouch Ultra2 Meter] Misc See Rx Instructions Not Applicable .MEDSUPPLY Qty: 1 Rx Instructions: As directed albuterol sulfate [Ventolin HFA] 90 mcg/actuation HFA aerosol inhaler 1 inh inhalation QID PRN (Reason: shortness of breath or wheezing) Qty: 8.5 1RF fluticasone propion-salmeterol [Wixela Inhub] 250-50 mcg/dose blister with device 1 ea inhalation BID Qty: 60 0RF amoxicillin-pot clavulanate 875-125 mg tablet 1 tab PO BID 7 Days Qty: 14 0RF prednisone 20 mg tablet 60 mg PO DAILY 3 Days Qty: 30 0RF Rx Instructions: then take 2 and half tabs daily for 3 days, then take 2 tabs daily for 3 days, then take 1 and half tabs daily for 3 days, and then take 1 tab daily for 3 days
[2023-06-01] MEDS: Albuterol Sulfate 5 MG, Albuterol/Iprat 2.5/0.5MG 3 ML 3 ML INHALE (12:55)
--- NOTE | 2023-06-01 13:46 | PC.NURSE ---
Pct notified this RN she is unable to obtain labs; Pct will retry in 5 minutes. Delayed administration of antibiotics secondary to delay in blood culture collection.
[2023-06-01 14:11] LABS: VBG Base Excess -3.3 mmol/L; VBG HCO3 23 mmol/L (22-26); VBG pCO2 47 mmHg; VBG pH 7.29 (7.32-7.43); VBG pO2 71 mmHg
[2023-06-01 14:13] LABS: Venous Blood Gas Refer to POC result
[2023-06-01] MEDS: cefTRIAXone sodium 1 GM in 0.9 % Sodium Chloride 50 ML IV (14:13)
[2023-06-01 14:14] LABS: Basophils Absolute Auto 0.1 X10*3/uL (0.0-0.2); Basophils Percent Auto 0.6 % (0-2); Eosinophils Percent Auto 0.1 % (0-4); Hematocrit 43.7 % (37.0-47.0); Hemoglobin 13.9 g/dl (12.0-16.0); Imm Gran Abs Auto 0.05 X10*3/uL (0.00-0.03); Imm Gran Pct Auto 0.4 % (0.0-0.4); Lymphocytes Absolute Auto 0.6 X10*3/uL (1.2-4.9); Lymphocytes Percent Auto 5.5 % (20-40); MANUAL DIFF FLAG SCAN; Mean Corpuscular HGB Conc 31.8 g/dl (31.0-35.0); Mean Corpuscular Hemoglobin 27.7 pg (27.0-33.0); Mean Corpuscular Volume 87.2 fL (80.0-98.0); Mean Platelet Volume 8.3 fL (9.4-12.3); Monocytes Absolute Auto 0.4 X10*3/uL (0.1-1.2); Monocytes Percent Auto 3.1 % (2-11); Neutrophils Absolute Auto 10.4 x10*3/uL (2.0-8.3); Neutrophils Percent Auto 90.3 % (45-73); Platelet Count 117 X10*3/uL (160-400); Red Blood Count 5.01 X10*6/uL (4.20-5.50); Red Cell Distribution Width 13.5 % (11.0-16.0); SCAN SMEAR FLAG 1; White Blood Count 11.5 X10*3/uL (4.8-10.8)
[2023-06-01 14:24] LABS: Lactic Acid 3.3 mmol/L (0.5-2.0)
[2023-06-01 14:25] LABS: Anion Gap 16 (12-20); Blood Urea Nitrogen 9 mg/dL (9-16); Calcium 9.1 mg/dL (8.4-10.2); Carbon Dioxide 22 mmol/L (22-29); Chloride 105 mmol/L (96-108); Creatinine Clr Calc Pharmacy 51.3; Estimated Glomerular Filt Rate > 60; Glucose Random 295 mg/dL (60-115); Potassium 3.7 mmol/L (3.3-5.1); Sodium 139 mmol/L (135-145)
[2023-06-01 14:30] LABS: SLIDE REVIEW VERIFIED
[2023-06-01 14:30] LABS: Influenza A PCR POSITIVE (Negative); Influenza B PCR NEGATIVE (Negative); Resp Syncy Virus RNA Qual PCR NEGATIVE (Negative); SARS COV2 PCR INHOUSE NEGATIVE (Negative)
[2023-06-01] MEDS: 0.9 % Sodium Chloride 1,000 ML 999 ML IV (15:18)
[2023-06-01 15:44] LABS: Reflex Lactate? Lactic Acid Added
[2023-06-01] MEDS: Oseltamivir Phosphate 75 MG CAPSULE PO (17:08)
--- NOTE | 2023-06-01 17:29 | PM.IMHP ---
History of Present Illness Date of Service: 06/01/23 Chief Complaint: Shortness of breath 77-year-old with unknown past medical history presenting to the emergency department with complaint of worsening shortness of breath as well as productive cough for the past week. States cough is productive of yellow sputum. Denies fevers. Denies chest pain or palpitations. Denies lightheadedness or dizziness, syncope. Denies any abdominal pain, nausea, vomiting, diarrhea or constipation. Denies recent lower extremity edema, calf pain or swelling. Found to be hypoxic on EMS arrival, improved with nebulizer treatment. Granddaughter reports other family members have been sick with similar symptoms. Influenza A positive in ER Review of Systems Review of Systems: Denies chest pain Admits to shortness of breath with minimal exertion Denies nausea vomiting diarrhea Denies fever chills PMFSH Social History Patient Tobacco Use Status: Current everyday Tobacco user Smoked in Last 30 Days: Yes Use of substances other than those prescribed or required for medical reasons: No Advance Directives: No Advance Directives Information Provided: Yes Meds Allergies Allergy/AdvReac Type Severity Reaction Status Date / Time No Known Allergies Allergy Mild NKA Verified 06/01/23 12:43 Active Medications: Current Medications Acetaminophen (Acetaminophen 325 Mg Tablet) 650 mg PO Q6H PRN PRN Reason: Pain, Mild (Pain Scale 1-3) Al Hydroxide/Mg Hydroxide (Magnesium Hydrox/Alum Hydrox 30 Ml Oral.Susp) 30 ml PO Q4H PRN PRN Reason: Heartburn/Nausea Enoxaparin Sodium (Enoxaparin Sodium 40 Mg/0.4 Ml Syringe) 40 mg SUBCUT Q24H [facility] Ceftriaxone Sodium 1 gm/ (Sodium Chloride) 50 mls @ 100 mls/hr IV Q24H [facility] Azithromycin 500 mg/ Sodium (Chloride) 250 mls @ 125 mls/hr IV DAILY ONE Stop: 06/01/23 19:26 Ondansetron HCl (Ondansetron Hcl 4 Mg/2 Ml Vial) 4 mg IVPUSH Q8H PRN PRN Reason: Nausea and Vomiting Sodium Chloride (0.9 % Sodium Chloride Flush 3 Ml Syringe) 3 ml IVFLUSH QSHIFT [facility] Home Medications Medication Instructions Recorded Confirmed Last Taken Type blood sugar diagnostic (OneTouch #10 ea 05/18/21 11/17/22 Unknown History Ultra Test strips) blood-glucose meter (OneTouch #1 ea 05/18/21 11/17/22 Unknown History Ultra2 Meter) lancets 33 gauge (OneTouch Delica #100 ea 05/18/21 11/17/22 Unknown History Plus Lancet) Physical Exam Vital Signs and Narrative: Vital Signs: Last Vital Signs Temp 98.6 F 06/01/23 17:10 Pulse 116 H 06/01/23 17:10 Resp 18 06/01/23 17:10 BP 145/68 H 06/01/23 17:10 Pulse Ox 91 L 06/01/23 17:10 O2 Del Method Nasal Cannula 06/01/23 17:10 O2 Flow Rate 4 06/01/23 17:10 Oxygen Flow Rate 4 06/01/23 12:34 BMI result Body Mass Index 33.3 Const: Other: Awake alert able speak in short sentences Resp: Other: Diminished throughout with dense expiratory wheezes Cardio: Other: No S4; positive S1-S2; no S3 murmurs rubs or gallops GI: Other: Soft nontender nondistended normoactive bowel sounds Neuro: Other: Cranial nerves 2-12 grossly intact as tested. Motor is 5/5 all extremities. Sensation is intact. Cognition appropriate Extrem: Other: No edema bilaterally Results Labs 06/01/23 14:02 06/01/23 14:02 Labs: Laboratory Results - last 24 hr 06/01/23 06/01/23 06/01/23 13:39 14:02 14:07 MCV 87.2 MCH 27.7 MCHC 31.8 RDW 13.5 Plt Count 117 L D MPV 8.3 L Immature Gran % (Auto) 0.4 Neut % (Auto) 90.3 H Lymph % (Auto) 5.5 L [place] % (Auto) 3.1 Eos % (Auto) 0.1 Baso % (Auto) 0.6 Lymph # (Auto) 0.6 L [place] # (Auto) 0.4 Eos # (Auto) 0.0 Baso # (Auto) 0.1 Abs Immat Gran (auto) 0.05 H Absolute Neuts (auto) 10.4 H Absolute Nucleated RBC 0.000 Nucleated RBC % (auto) 0.0 Smear Tech's Comments VERIFIED VBG pH 7.29 L VBG pCO2 47 VBG pO2 71 VBG HCO3 23 VBG O2 Saturation 92.0 VBG Base Excess -3.3 Anion Gap 16 Estim Creat Clear Calc 51.3 Estimated GFR > 60 Random Glucose 295 H Lactic Acid 3.3 H* Calcium 9.1 Influenza Type A (PCR) POSITIVE A Influenza Type B (PCR) NEGATIVE RSV RNA Qual (PCR) NEGATIVE SARS-CoV-2 RNA (RT-PCR) NEGATIVE Imaging Radiologist's Impressions: Impressions Chest X-Ray 06/01/23 13:57 IMPRESSION: No focal pneumonia or alveolar edema. Metallic density superimposes over the aorticopulmonary window region. Recommend inspection of the patient Assessment and Plan (1) Influenza A: Status: Acute (2) COPD exacerbation: Status: Acute (3) Acute hypoxic respiratory failure: Status: Acute Plan 77-year-old male with 40 year pack history presents with worsening shortness of breath productive cough and hypoxia in the backdrop of influenza a. She had recently been treated for a frontal sinusitis with steroids and Augmentin however it never completely resolved per patient. She has responded to steroids DuoNeb will be admitted for same 1. Acute hypoxic respiratory failure/COPD exacerbation worsened by influenza a -ceftriaxone/azithromycin (1) -pulse dose methylprednisolone. . . 60 mg IV q.6 hours -titrate O2 to maintain sats greater than or equal to 90% -DuoNebs q.4 hours while awake -Tamiflu 75mg BID x 5 days 2. Hyperglycemia (likely to worsen with steroids) -lispro correctional scale -check A1C -adjust as indicated Full code Lovenox Patient will require to remain nights going forward of inpatient stay for IV antibiotics as well as IV steroids to treat acute hypoxic respiratory failure secondary to COPD exacerbation. This cannot be achieved a lesser acute setting Quality Stroke Does the patient have a stroke diagnosis?: No VTE Prior VTE?: No VTE Risk Level:: Medical - moderate - high VTE Device Contraindication: Treatment Not Indicated VTE Drug Contraindication: N/A - Med Ordered
--- NOTE | 2023-06-01 17:51 | PHA.MEDREC ---
Pharmacy Consult ? Medication Reconciliation Pharmacy has completed the medication reconciliation. Per family member, patient has a lot of medications prescribed, but they do not take any of them.
[2023-06-01] MEDS: Enoxaparin Sodium 40 MG/0.4 ML SYRINGE SUBCUT (18:14)
[2023-06-01] MEDS: Azithromycin 500 MG in 0.9 % Sodium Chloride 250 ML 125 MG IV (18:14)
[2023-06-01] MEDS: methylPREDNISolone Sod Succ 125 MG/2 ML VIAL 60 MG IVPUSH ×2 (18:14→23:53)
[2023-06-01 18:20] LABS: ABG Base Excess -5.9 mmol/L; ABG HCO3 21 mmol/L (22-26); ABG pCO2 47 mmHg (32-45); ABG pH 7.25 (7.35-7.45); ABG pO2 102 mmHg (83-108)
[2023-06-01 18:24] LABS: ~Lactic Acid-LAB USE ONLY 3.8 mmol/L (0.5-2.0)
--- NOTE | 2023-06-01 18:27 | PM.EVENT ---
Event Note Date of Service: 06/01/23 Event Note: Patient spiked fever to 102.8; tachycardia in the 120s respiratory rate 24 and white count 11.5. Meets criteria for sepsis. Lactate 3.8. Blood cultures x2 done antibiotics initiated. Does not meet criteria for volume repletion Time Spent With Patient Time: Total time managing care of this patient today ____ minutes.
[2023-06-01 18:28] LABS: Troponin-I High Sensitivity 33.7 ng/L (<3.5-17.0)
[2023-06-01 18:28] LABS: ABG Refer to POC result
--- NOTE | 2023-06-01 18:42 | PC.NURSE ---
Granddaughter at bedside reporting pt AMS. This RN assessed pt mental status to be altered from time of arrival. Pt coughing constantly, hypoxic on 4l NC, and rectal temp of 102.3. Respiratory notified and suggested switch to oxy mask 5L. Provider notified and orders for ABG as well as UA placed. Respiratory to bedside and obtained ABG. UA sent to lab. Pt now satting 90-92 % on 3 L oxymask.
[2023-06-01 18:48] LABS: Appearance Urine Clear; Color Urine Yellow; Glucose Urine UA >=1000 mg/dL (Negative); Leukocyte Esterase Urine Negative (Negative); Nitrite Urine Negative (Negative); PH 5.5 (5.0-9.0); Specific Gravity - Urine 1.025 (1.005-1.025); UMIC TRIGGER UA YES; Urine Blood Trace (Negative); Urine Ketones Negative (Negative); Urine Protein 100 (2+) mg/dL (Neg-Trace)
[2023-06-01 18:53] LABS: Bacteria Urine Trace (None Seen); Hyaline Casts Urine 0-2 /LPF (0-2); WBC Urine 0-5 /HPF (0-5)
[2023-06-01] MEDS: Albuterol/Iprat 2.5/0.5MG 3 ML AMPUL.NEB INHALE (19:40)
[2023-06-01 20:02] LABS: Reflex Lactate? 2 Y
[2023-06-01 20:58] LABS: ~Lactic Acid-LAB USE ONLY 3.9 mmol/L (0.5-2.0)
[2023-06-02] VITALS (7 sets, daily range): BP systolic 111–182; BP diastolic 55–79; PULSE 77–115; RESP 18–22; TEMP 36.4–37.4; O2SAT 92–99
[2023-06-02] MEDS: guaiFENesin DM 200/20/10 ML 10 ML SYRUP PO (00:26)
[2023-06-02] MEDS: Albuterol/Iprat 2.5/0.5MG 3 ML AMPUL.NEB INHALE ×2 (04:25→15:50)
[2023-06-02] MEDS: methylPREDNISolone Sod Succ 125 MG/2 ML VIAL 60 MG IVPUSH ×3 (05:59→17:29)
[2023-06-02 06:21] LABS: Basophils Percent Auto 0.2 % (0-2); Hematocrit 39.2 % (37.0-47.0); Hemoglobin 12.2 g/dl (12.0-16.0); Imm Gran Abs Auto 0.11 X10*3/uL (0.00-0.03); Imm Gran Pct Auto 0.6 % (0.0-0.4); Lymphocytes Absolute Auto 0.5 X10*3/uL (1.2-4.9); Lymphocytes Percent Auto 2.6 % (20-40); MANUAL DIFF FLAG SCAN; Mean Corpuscular HGB Conc 31.1 g/dl (31.0-35.0); Mean Corpuscular Volume 89.9 fL (80.0-98.0); Mean Platelet Volume 8.4 fL (9.4-12.3); Monocytes Absolute Auto 0.5 X10*3/uL (0.1-1.2); Monocytes Percent Auto 2.5 % (2-11); Neutrophils Absolute Auto 17.1 x10*3/uL (2.0-8.3); Neutrophils Percent Auto 94.1 % (45-73); Platelet Count 118 X10*3/uL (160-400); Red Blood Count 4.36 X10*6/uL (4.20-5.50); Red Cell Distribution Width 13.8 % (11.0-16.0); SCAN SMEAR FLAG 1; White Blood Count 18.2 X10*3/uL (4.8-10.8)
[2023-06-02 06:35] LABS: Alanine Aminotransferase 18 U/L (0-31); Albumin Level 3.6 g/dL (3.5-5.0); Alkaline Phosphatase 89 U/L (39-117); Anion Gap 12 (12-20); Aspartate Amino Transferase 30 U/L (5-31); Bilirubin Total 0.3 mg/dL (0.0-1.0); Blood Urea Nitrogen 15 mg/dL (9-16); Calcium 8.7 mg/dL (8.4-10.2); Carbon Dioxide 24 mmol/L (22-29); Chloride 105 mmol/L (96-108); Creatinine Clr Calc Pharmacy 41.9; Estimated Glomerular Filt Rate > 60; Glucose Random 335 mg/dL (60-115); Potassium 4.3 mmol/L (3.3-5.1); Sodium 137 mmol/L (135-145); Total Protein 6.4 g/dL (6.5-8.0)
[2023-06-02 08:06] LABS: SLIDE REVIEW VERIFIED
--- NOTE | 2023-06-02 08:29 | MHC.CM.PN ---
CM met with Patient and her Granddaughter at bedside and addressed IMM with them; original was given to Granddaughter and a copy has been placed on the chart. Patient lives in a house with her 2 Daughters and 2 Grandchildren and she required no DME ICE HAND[employer]. Patient's Granddaughter states that Patient has a visiting Nurse but they don't come often and she is unsure of the agency name. CM is questioning if it is through insurance/[facility] since Patient does not have a PCP. Patient's Granddaughter/Letitia is the HCP. Home is the goal and CM has initiated and will follow for dc planning.
[2023-06-02] MEDS: HYDROcodone Bit/Acetam 7.5/325 TABLET 1 TAB PO (09:59)
[2023-06-02] MEDS: guaiFENesin 200 MG/10 ML 10 ML LIQUID PO ×2 (10:00→17:27)
--- NOTE | 2023-06-02 13:39 | HO.PM.IMPN ---
Subjective Subjective Date of Service: 06/02/23 Interval History: More confused this a.m. remains afebrile Review of Systems Unable to obtain Physical Exam Vital Signs: Vital Signs: Last Vital Signs Temp 97.9 F 06/02/23 11:10 Pulse 90 06/02/23 11:10 Resp 18 06/02/23 11:10 BP 111/55 L 06/02/23 11:10 Pulse Ox 92 06/02/23 11:10 O2 Del Method Nasal Cannula 06/02/23 11:10 O2 Flow Rate 2 06/02/23 03:47 Oxygen Flow Rate 4 06/01/23 12:34 BMI result Body Mass Index 22.2 Const: Other: Awake alert able speak in short sentences Resp: Other: Diminished throughout with dense expiratory wheezes Cardio: Other: No S4; positive S1-S2; no S3 murmurs rubs or gallops GI: Other: Soft nontender nondistended normoactive bowel sounds Neuro: Other: Cranial nerves 2-12 grossly intact as tested. Motor is 5/5 all extremities. Sensation is intact. Cognition appropriate Extrem: Other: No edema bilaterally Objective Data Active Medications Acetaminophen (Acetaminophen 325 Mg Tablet) 650 mg PO Q6H PRN PRN Reason: Pain, Mild (Pain Scale 1-3) Hydrocodone Bitart/Acetaminophen (Hydrocodone Bit/Acetam 7.5/325 Tablet) 1 tab PO Q4H PRN PRN Reason: Cough Last Admin: 06/02/23 09:59 Dose: 1 tab Documented By: CARMINA Al Hydroxide/Mg Hydroxide (Magnesium Hydrox/Alum Hydrox 30 Ml Oral.Susp) 30 ml PO Q4H PRN PRN Reason: Heartburn/Nausea Albuterol/Ipratropium (Albuterol/Iprat 2.5/0.5mg 3 Ml Ampul.Neb) 3 ml INHALE Q4H [facility] Last Admin: 06/02/23 11:51 Dose: Not Given Documented By: CAMELIA Non-Admin Reason: Patient Asleep Enoxaparin Sodium (Enoxaparin Sodium 40 Mg/0.4 Ml Syringe) 40 mg SUBCUT Q24H [facility] Last Admin: 06/01/23 18:14 Dose: 40 mg Documented By: ARIEL Guaifenesin (Guaifenesin 200 Mg/10 Ml 10 Ml Liquid) 10 ml PO Q4H PRN PRN Reason: Cough Last Admin: 06/02/23 10:00 Dose: 10 ml Documented By: CARMINA Guaifenesin/Dextromethorphan (Guaifenesin Dm 100/10/5 Ml 5 Ml Syrup) 5 ml PO Q4H PRN PRN Reason: Cough Ceftriaxone Sodium 1 gm/ (Sodium Chloride) 50 mls @ 100 mls/hr IV Q24H [facility] Methylprednisolone Sodium Succinate (Methylprednisolone Sod Succ 125 Mg/2 Ml Vial) 60 mg IVPUSH Q6H [facility] Last Admin: 06/02/23 09:58 Dose: 60 mg Documented By: CARMINA Ondansetron HCl (Ondansetron Hcl 4 Mg/2 Ml Vial) 4 mg IVPUSH Q8H PRN PRN Reason: Nausea and Vomiting Sodium Chloride (0.9 % Sodium Chloride Flush 3 Ml Syringe) 3 ml IVFLUSH QSHIFT [facility] Last Admin: 06/02/23 11:46 Dose: Not Given Documented By: CARMINA Non-Admin Reason: IV Running Labs 06/02/23 06:07 06/02/23 06:07 Labs: Laboratory Results - last 24 hr 06/01/23 06/01/23 06/01/23 13:39 14:02 14:07 MCV 87.2 MCH 27.7 MCHC 31.8 RDW 13.5 Plt Count 117 L D MPV 8.3 L Immature Gran % (Auto) 0.4 Neut % (Auto) 90.3 H Lymph % (Auto) 5.5 L [place] % (Auto) 3.1 Eos % (Auto) 0.1 Baso % (Auto) 0.6 Lymph # (Auto) 0.6 L [place] # (Auto) 0.4 Eos # (Auto) 0.0 Baso # (Auto) 0.1 Abs Immat Gran (auto) 0.05 H Absolute Neuts (auto) 10.4 H Absolute Nucleated RBC 0.000 Nucleated RBC % (auto) 0.0 Smear Tech's Comments VERIFIED O2 Saturation ABG pH at Pt Temp ABG pCO2 at Pt Temp ABG pO2 at Pt Temp ABG HCO3 ABG Base Excess (Actual) VBG pH 7.29 L VBG pCO2 47 VBG pO2 71 VBG HCO3 23 VBG O2 Saturation 92.0 VBG Base Excess -3.3 Anion Gap 16 Estim Creat Clear Calc 51.3 Estimated GFR > 60 Random Glucose 295 H Lactic Acid 3.3 H* Lactic Acid F/U @ 2Hr Lactic Acid F/U @ 4Hr Calcium 9.1 Total Bilirubin AST ALT Alkaline Phosphatase Total Protein Albumin Urine Color Urine Appearance Urine pH Ur Specific [place] Urine Protein Urine Glucose (UA) Urine Ketones Urine Blood Urine Nitrite Ur Leukocyte Esterase Urine RBC Urine WBC Ur Squamous Epith Cells Urine Bacteria Hyaline Casts Influenza Type A (PCR) POSITIVE A Influenza Type B (PCR) NEGATIVE RSV RNA Qual (PCR) NEGATIVE SARS-CoV-2 RNA (RT-PCR) NEGATIVE 06/01/23 06/01/23 06/01/23 17:59 18:14 18:37 MCV MCH MCHC RDW Plt Count MPV Immature Gran % (Auto) Neut % (Auto) Lymph % (Auto) [place] % (Auto) Eos % (Auto) Baso % (Auto) Lymph # (Auto) [place] # (Auto) Eos # (Auto) Baso # (Auto) Abs Immat Gran (auto) Absolute Neuts (auto) Absolute Nucleated RBC Nucleated RBC % (auto) Smear Tech's Comments O2 Saturation 98.0 ABG pH at Pt Temp 7.25 L ABG pCO2 at Pt Temp 47 H ABG pO2 at Pt Temp 102 ABG HCO3 21 L ABG Base Excess (Actual) -5.9 VBG pH VBG pCO2 VBG pO2 VBG HCO3 VBG O2 Saturation VBG Base Excess Anion Gap Estim Creat Clear Calc Estimated GFR Random Glucose Lactic Acid Lactic Acid F/U @ 2Hr 3.8 H* Lactic Acid F/U @ 4Hr Calcium Total Bilirubin AST ALT Alkaline Phosphatase Total Protein Albumin Urine Color Yellow Urine Appearance Clear Urine pH 5.5 Ur Specific [place] 1.025 Urine Protein 100 (2+) H Urine Glucose (UA) >=1000 H Urine Ketones Negative Urine Blood Trace Urine Nitrite Negative Ur Leukocyte Esterase Negative Urine RBC 3-5 H Urine WBC 0-5 Ur Squamous Epith Cells 6-10 Urine Bacteria Trace Hyaline Casts 0-2 Influenza Type A (PCR) Influenza Type B (PCR) RSV RNA Qual (PCR) SARS-CoV-2 RNA (RT-PCR) 06/01/23 06/02/23 20:22 06:07 MCV 89.9 MCH 28.0 MCHC 31.1 RDW 13.8 Plt Count 118 L MPV 8.4 L Immature Gran % (Auto) 0.6 H Neut % (Auto) 94.1 H Lymph % (Auto) 2.6 L [place] % (Auto) 2.5 Eos % (Auto) 0.0 Baso % (Auto) 0.2 Lymph # (Auto) 0.5 L [place] # (Auto) 0.5 Eos # (Auto) 0.0 Baso # (Auto) 0.0 Abs Immat Gran (auto) 0.11 H Absolute Neuts (auto) 17.1 H Absolute Nucleated RBC 0.000 Nucleated RBC % (auto) 0.0 Smear Tech's Comments VERIFIED O2 Saturation ABG pH at Pt Temp ABG pCO2 at Pt Temp ABG pO2 at Pt Temp ABG HCO3 ABG Base Excess (Actual) VBG pH VBG pCO2 VBG pO2 VBG HCO3 VBG O2 Saturation VBG Base Excess Anion Gap 12 Estim Creat Clear Calc 41.9 Estimated GFR > 60 Random Glucose 335 H Lactic Acid Lactic Acid F/U @ 2Hr Lactic Acid F/U @ 4Hr 3.9 H* Calcium 8.7 Total Bilirubin 0.3 AST 30 ALT 18 Alkaline Phosphatase 89 Total Protein 6.4 L Albumin 3.6 Urine Color Urine Appearance Urine pH Ur Specific [place] Urine Protein Urine Glucose (UA) Urine Ketones Urine Blood Urine Nitrite Ur Leukocyte Esterase Urine RBC Urine WBC Ur Squamous Epith Cells Urine Bacteria Hyaline Casts Influenza Type A (PCR) Influenza Type B (PCR) RSV RNA Qual (PCR) SARS-CoV-2 RNA (RT-PCR) Microbiology Microbiology Results: Microbiology 06/01/23 18:37 Urine Culture - Preliminary Urine clean catch - Clean Catch Midstream Culture too young to evaluate. Assessment and Plan (1) Acute hypoxic respiratory failure: Status: Acute (2) COPD exacerbation: Status: Acute (3) Influenza A: Status: Acute Plan 77-year-old male with 40 year pack history presents with worsening shortness of breath productive cough and hypoxia in the backdrop of influenza a. She had recently been treated for a frontal sinusitis with steroids and Augmentin however it never completely resolved per patient. She has responded to steroids DuoNeb will be admitted for same 1. Acute hypoxic respiratory failure/COPD exacerbation worsened by influenza a -met sepsis criteria; now resolved -ceftriaxone/azithromycin (2) -pulse dose methylprednisolone. . . 60 mg IV q.6 hours -titrate O2 to maintain sats greater than or equal to 90% -DuoNebs q.4 hours while awake -Tamiflu 75mg BID x 5 days 2. Hyperglycemia (likely to worsen with steroids) -lispro correctional scale -check A1C -adjust as indicated DNR DNI Lovenox Patient will require to remain nights going forward of inpatient stay for IV antibiotics as well as IV steroids to treat acute hypoxic respiratory failure secondary to COPD exacerbation. This cannot be achieved a lesser acute setting Quality Stroke Does the patient have a stroke diagnosis?: No VTE Prior VTE?: No VTE Risk Level:: Medical - moderate - high VTE Device Contraindication: Treatment Not Indicated VTE Drug Contraindication: N/A - Med Ordered
[2023-06-02] MEDS: cefTRIAXone sodium 1 GM in 0.9 % Sodium Chloride 50 ML IV (13:50)
[2023-06-02] MEDS: 0.9 % Sodium Chloride Flush 3 ML SYRINGE IVFLUSH (13:50)
[2023-06-02] MEDS: Enoxaparin Sodium 40 MG/0.4 ML SYRINGE SUBCUT (17:28)
[2023-06-03] MEDS: methylPREDNISolone Sod Succ 125 MG/2 ML VIAL 60 MG IVPUSH ×3 (00:15→21:25)
[2023-06-03] MEDS: guaiFENesin 200 MG/10 ML 10 ML LIQUID PO (00:16)
[2023-06-03] MEDS: 0.9 % Sodium Chloride Flush 3 ML SYRINGE IVFLUSH ×3 (00:16→21:30)
[2023-06-03 03:30] VITALS: BP 153/65; PULSE 93; RESP 22; TEMP 36.9; O2SAT 94
[2023-06-03 07:01] VITALS: BP 164/67; PULSE 95; RESP 20; TEMP 36.7; O2SAT 97
--- NOTE | 2023-06-03 07:20 | PC.NURSE ---
0600 pt removed IV at 0330 several attempts to reinsert IV without success. pt agitated, with confusion. sitter at bedside due to confusion.
[2023-06-03 07:30] VITALS: PULSE 107; RESP 20; O2SAT 94
[2023-06-03] MEDS: Albuterol/Iprat 2.5/0.5MG 3 ML AMPUL.NEB INHALE (07:30)
[2023-06-03 08:22] LABS: Hematocrit 39.6 % (37.0-47.0); Hemoglobin 12.5 g/dl (12.0-16.0); Mean Corpuscular HGB Conc 31.6 g/dl (31.0-35.0); Mean Corpuscular Hemoglobin 28.7 pg (27.0-33.0); Mean Platelet Volume 9.1 fL (9.4-12.3); Platelet Count 148 X10*3/uL (160-400); Red Blood Count 4.35 X10*6/uL (4.20-5.50); Red Cell Distribution Width 13.9 % (11.0-16.0); White Blood Count 20.9 X10*3/uL (4.8-10.8)
[2023-06-03 08:51] LABS: Alanine Aminotransferase 20 U/L (0-31); Albumin Level 3.4 g/dL (3.5-5.0); Alkaline Phosphatase 100 U/L (39-117); Anion Gap 11 (12-20); Aspartate Amino Transferase 35 U/L (5-31); Bilirubin Total 0.2 mg/dL (0.0-1.0); Blood Urea Nitrogen 27 mg/dL (9-16); Calcium 9.5 mg/dL (8.4-10.2); Carbon Dioxide 25 mmol/L (22-29); Chloride 104 mmol/L (96-108); Estimated Glomerular Filt Rate > 60; Potassium 4.1 mmol/L (3.3-5.1); Sodium 136 mmol/L (135-145); Total Protein 6.3 g/dL (6.5-8.0)
[2023-06-03 08:53] LABS: Glucose Fasting 420 mg/dL (60-99)
[2023-06-03 09:17] LABS: SLIDE REVIEW MANUAL DIFF
[2023-06-03] MEDS: Insulin Lispro 100 UNIT/ML 3 ML VIAL 20 UNIT SUBCUT (09:20)
[2023-06-03 09:21] LABS: Band Neutrophils Percent 11 % (3-5); Lymphocytes Absolute Manual 0.2 X10*3/uL (1.2-4.9); Lymphocytes Percent Manual 1 % (20-40); Monocytes Absolute Manual 0.2 X10*3/uL (0.1-1.2); Monocytes Percent Manual 1 % (2-11); Neutrophils Absolute Manual 20.5 X10*3/uL (2.0-8.3); Neutrophils Percent Manual 87 % (45-73); Platelet Estimate NORMAL (NORMAL); Platelet Morphology Comment NORMAL; RBC Morphology NORMAL
--- NOTE | 2023-06-03 11:03 | MHC.CM.PN ---
PER MD ROUNDS PT NOT READY TO DC DCP [facility] HOME WITH RESUMPTION OF SERVICES VIA FAMILY TRANSPORT
[2023-06-03 11:08] VITALS: BP 186/77; PULSE 93; RESP 20; TEMP 36.7; O2SAT 95
[2023-06-03 11:16] LABS: Glucose, Whole Blood 355 mg/dL (60-115)
[2023-06-03] MEDS: Insulin Lispro 100 UNIT/ML 3 ML VIAL SUBCUT ×2 (11:34→21:58)
[2023-06-03] MEDS: cefTRIAXone sodium 1 GM in 0.9 % Sodium Chloride 50 ML IV (13:03)
--- NOTE | 2023-06-03 13:03 | HO.PM.IMPN ---
Subjective Subjective Date of Service: 06/03/23 Interval History: More alert today. Remains afebrile Review of Systems Unable to obtain Physical Exam Vital Signs: Vital Signs: Last Vital Signs Temp 98.0 F 06/03/23 11:08 Pulse 93 06/03/23 11:08 Resp 20 06/03/23 11:08 BP 186/77 H 06/03/23 11:08 Pulse Ox 95 06/03/23 11:08 O2 Del Method Nasal Cannula 06/03/23 11:08 O2 Flow Rate 3 06/03/23 11:08 Oxygen Flow Rate 4 06/01/23 12:34 BMI result Body Mass Index 22.2 Const: Other: Awake alert able speak in short sentences Resp: Other: Diminished throughout with dense expiratory wheezes Cardio: Other: No S4; positive S1-S2; no S3 murmurs rubs or gallops GI: Other: Soft nontender nondistended normoactive bowel sounds Neuro: Other: Cranial nerves 2-12 grossly intact as tested. Motor is 5/5 all extremities. Sensation is intact. Cognition appropriate Extrem: Other: No edema bilaterally Objective Data Active Medications Acetaminophen (Acetaminophen 325 Mg Tablet) 650 mg PO Q6H PRN PRN Reason: Pain, Mild (Pain Scale 1-3) Hydrocodone Bitart/Acetaminophen (Hydrocodone Bit/Acetam 7.5/325 Tablet) 1 tab PO Q4H PRN PRN Reason: Cough Last Admin: 06/02/23 09:59 Dose: 1 tab Documented By: CARMINA Al Hydroxide/Mg Hydroxide (Magnesium Hydrox/Alum Hydrox 30 Ml Oral.Susp) 30 ml PO Q4H PRN PRN Reason: Heartburn/Nausea Albuterol/Ipratropium (Albuterol/Iprat 2.5/0.5mg 3 Ml Ampul.Neb) 3 ml INHALE Q4H [facility] Last Admin: 06/03/23 11:17 Dose: Not Given Documented By: CHEY Non-Admin Reason: Patient Refused Dextrose (Dextrose 50 % 25 Gm/50 Ml Syringe) 25 gm IVPUSH Q15M PRN; Protocol PRN Reason: per Hypoglycemia Standing Ord. Enoxaparin Sodium (Enoxaparin Sodium 40 Mg/0.4 Ml Syringe) 40 mg SUBCUT Q24H [facility] Last Admin: 06/02/23 17:28 Dose: 40 mg Documented By: CARMINA Glucose (Glucose Gel 15 Gm Gel..Gram.) 15 gm PO Q15M PRN; Protocol PRN Reason: per Hypoglycemia Standing Ord. Guaifenesin (Guaifenesin 200 Mg/10 Ml 10 Ml Liquid) 10 ml PO Q4H PRN PRN Reason: Cough Last Admin: 06/03/23 00:16 Dose: 10 ml Documented By: MANOJ Guaifenesin/Dextromethorphan (Guaifenesin Dm 100/10/5 Ml 5 Ml Syrup) 5 ml PO Q4H PRN PRN Reason: Cough Ceftriaxone Sodium 1 gm/ (Sodium Chloride) 50 mls @ 100 mls/hr IV Q24H [facility] Last Infusion: 06/02/23 15:00 Dose: Infused Documented By: CARMINA Insulin Human Lispro (Insulin Lispro 100 Unit/Ml 3 Ml Vial) 0 unit SUBCUT QIDACHS [facility]; Protocol Last Admin: 06/03/23 11:34 Dose: 10 unit Documented By: KO Methylprednisolone Sodium Succinate (Methylprednisolone Sod Succ 125 Mg/2 Ml Vial) 60 mg IVPUSH Q6H [facility] Last Admin: 06/03/23 11:35 Dose: 60 mg Documented By: KO Ondansetron HCl (Ondansetron Hcl 4 Mg/2 Ml Vial) 4 mg IVPUSH Q8H PRN PRN Reason: Nausea and Vomiting Sodium Chloride (0.9 % Sodium Chloride Flush 3 Ml Syringe) 3 ml IVFLUSH QSHIFT [facility] Last Admin: 06/03/23 09:08 Dose: Not Given Documented By: KO Non-Admin Reason: No Access Labs 06/03/23 07:12 06/03/23 07:12 Labs: Laboratory Results - last 24 hr 06/03/23 06/03/23 07:12 11:12 MCV 91.0 MCH 28.7 MCHC 31.6 RDW 13.9 Plt Count 148 L D MPV 9.1 L Immature Gran % (Auto) Cancelled Neut % (Auto) Cancelled Lymph % (Auto) Cancelled [place] % (Auto) Cancelled Eos % (Auto) Cancelled Baso % (Auto) Cancelled Lymph # (Auto) Cancelled [place] # (Auto) Cancelled Eos # (Auto) Cancelled Baso # (Auto) Cancelled Abs Immat Gran (auto) Cancelled Absolute Neuts (auto) Cancelled Absolute Nucleated RBC 0.000 Nucleated RBC % (auto) 0.0 Neutrophils % (Manual) 87 H Band Neutrophils % 11 H Lymphocytes % (Manual) 1 L Monocytes % (Manual) 1 L Abs Neuts (Manual) 20.5 H Lymphocytes # (Manual) 0.2 L Monocytes # (Manual) 0.2 Platelet Estimate NORMAL Plt Morphology Comment NORMAL RBC Morphology NORMAL Smear Tech's Comments MANUAL DIFF Anion Gap 11 L Estim Creat Clear Calc 40.0 Estimated GFR > 60 POC Glucose 355 H* Fasting Glucose 420 H* Calcium 9.5 D Total Bilirubin 0.2 AST 35 H ALT 20 Alkaline Phosphatase 100 Total Protein 6.3 L Albumin 3.4 L Microbiology Microbiology Results: Microbiology 06/01/23 18:37 Urine Culture - Final Urine clean catch - Clean Catch Midstream 06/01/23 14:02 Blood Culture - Preliminary Blood - Venous No growth after 24 hours. 06/01/23 13:39 Blood Culture - Preliminary Blood - Venous No growth after 24 hours. Assessment and Plan (1) Acute hypoxic respiratory failure: Status: Acute (2) COPD exacerbation: Status: Acute (3) Sepsis: Status: Acute Plan 77-year-old male with 40 year pack history presents with worsening shortness of breath productive cough and hypoxia in the backdrop of influenza a. She had recently been treated for a frontal sinusitis with steroids and Augmentin however it never completely resolved per patient. She has responded to steroids DuoNeb will be admitted for same 1. Acute hypoxic respiratory failure/COPD exacerbation worsened by influenza a -met sepsis criteria; now resolved -ceftriaxone/azithromycin (3) -pulse dose methylprednisolone. . . 60 mg IV q.8 hours -titrate O2 to maintain sats greater than or equal to 90% -DuoNebs q.4 hours while awake -Tamiflu 75mg BID x 5 days 2. Hyperglycemia (likely to worsen with steroids) -lispro correctional scale -check A1C -adjust as indicated DNR DNI Ariannenox Will need ongoing hospitalization for IV antibiotics and steroids to treat hypoxic respiratory failure exacerbated by influenza a Quality Stroke Does the patient have a stroke diagnosis?: No VTE Prior VTE?: No VTE Risk Level:: Medical - moderate - high VTE Device Contraindication: Treatment Not Indicated VTE Drug Contraindication: N/A - Med Ordered
[2023-06-03 15:41] VITALS: BP 173/73; PULSE 86; RESP 20; TEMP 36.7; O2SAT 96
[2023-06-03 16:37] LABS: Glucose, Whole Blood 128 mg/dL (60-115)
[2023-06-03] MEDS: Enoxaparin Sodium 40 MG/0.4 ML SYRINGE SUBCUT (16:44)
[2023-06-03 19:23] VITALS: BP 166/70; PULSE 97; RESP 20; TEMP 36.9; O2SAT 95
[2023-06-03] MEDS: Oseltamivir Phosphate 75 MG CAPSULE PO (21:24)
[2023-06-03 21:42] LABS: Glucose, Whole Blood 309 mg/dL (60-115)
[2023-06-04] VITALS (8 sets, daily range): BP systolic 152–199; BP diastolic 73–89; PULSE 85–104; RESP 16–20; TEMP 36.2–36.8; O2SAT 91–96
[2023-06-04] MEDS: methylPREDNISolone Sod Succ 125 MG/2 ML VIAL 60 MG IVPUSH ×3 (04:56→22:30)
[2023-06-04] MEDS: hydrALAZINE HCl 20 MG/ML VIAL 10 MG IVPUSH (06:26)
[2023-06-04 07:08] LABS: Basophils Percent Auto 0.1 % (0-2); Hemoglobin 13.6 g/dl (12.0-16.0); Imm Gran Abs Auto 0.11 X10*3/uL (0.00-0.03); Imm Gran Pct Auto 0.5 % (0.0-0.4); Lymphocytes Absolute Auto 0.9 X10*3/uL (1.2-4.9); Lymphocytes Percent Auto 4.5 % (20-40); MANUAL DIFF FLAG SCAN; Mean Corpuscular HGB Conc 31.6 g/dl (31.0-35.0); Mean Corpuscular Volume 88.5 fL (80.0-98.0); Mean Platelet Volume 8.9 fL (9.4-12.3); Monocytes Absolute Auto 0.5 X10*3/uL (0.1-1.2); Monocytes Percent Auto 2.6 % (2-11); Neutrophils Absolute Auto 18.6 x10*3/uL (2.0-8.3); Neutrophils Percent Auto 92.3 % (45-73); Platelet Count 164 X10*3/uL (160-400); Red Blood Count 4.86 X10*6/uL (4.20-5.50); Red Cell Distribution Width 13.6 % (11.0-16.0); SCAN SMEAR FLAG 1; White Blood Count 20.2 X10*3/uL (4.8-10.8)
[2023-06-04 07:26] LABS: Alanine Aminotransferase 20 U/L (0-31); Albumin Level 3.6 g/dL (3.5-5.0); Alkaline Phosphatase 99 U/L (39-117); Anion Gap 10 (12-20); Aspartate Amino Transferase 29 U/L (5-31); Bilirubin Total 0.3 mg/dL (0.0-1.0); Blood Urea Nitrogen 23 mg/dL (9-16); Calcium 9.3 mg/dL (8.4-10.2); Carbon Dioxide 29 mmol/L (22-29); Chloride 104 mmol/L (96-108); Creatinine Clr Calc Pharmacy 41.9; Estimated Glomerular Filt Rate > 60; Sodium 139 mmol/L (135-145); Total Protein 6.6 g/dL (6.5-8.0)
[2023-06-04 07:39] LABS: SLIDE REVIEW VERIFIED
[2023-06-04 07:58] LABS: Glucose Fasting 372 mg/dL (60-99)
[2023-06-04] MEDS: Albuterol/Iprat 2.5/0.5MG 3 ML AMPUL.NEB INHALE ×2 (08:02→15:50)
[2023-06-04 08:05] LABS: Glucose, Whole Blood 327 mg/dL (60-115)
[2023-06-04] MEDS: 0.9 % Sodium Chloride Flush 3 ML SYRINGE IVFLUSH ×3 (08:34→22:31)
[2023-06-04] MEDS: Insulin Lispro 100 UNIT/ML 3 ML VIAL SUBCUT ×4 (08:34→22:30)
[2023-06-04] MEDS: Oseltamivir Phosphate 30 MG CAPSULE PO ×2 (08:35→22:31)
[2023-06-04 10:52] LABS: Glucose, Whole Blood 297 mg/dL (60-115)
--- NOTE | 2023-06-04 14:44 | HO.PM.IMPN ---
Subjective Subjective Date of Service: 06/04/23 Interval History: Confused but more alert today. Breathing slowly improving Review of Systems Unable to obtain Physical Exam Vital Signs: Vital Signs: Last Vital Signs Temp 98.0 F 06/04/23 10:58 Pulse 96 06/04/23 10:58 Resp 20 06/04/23 10:58 BP 177/77 H 06/04/23 10:58 Pulse Ox 92 06/04/23 10:58 O2 Del Method Nasal Cannula 06/04/23 10:58 O2 Flow Rate 2 06/04/23 10:58 Oxygen Flow Rate 4 06/01/23 12:34 BMI result Body Mass Index 22.2 Const: Other: Awake alert able speak in short sentences Resp: Other: Diminished throughout with dense expiratory wheezes Cardio: Other: No S4; positive S1-S2; no S3 murmurs rubs or gallops GI: Other: Soft nontender nondistended normoactive bowel sounds Neuro: Other: Cranial nerves 2-12 grossly intact as tested. Motor is 5/5 all extremities. Sensation is intact. Cognition appropriate Extrem: Other: No edema bilaterally Objective Data Active Medications Acetaminophen (Acetaminophen 325 Mg Tablet) 650 mg PO Q6H PRN PRN Reason: Pain, Mild (Pain Scale 1-3) Hydrocodone Bitart/Acetaminophen (Hydrocodone Bit/Acetam 7.5/325 Tablet) 1 tab PO Q4H PRN PRN Reason: Cough Last Admin: 06/02/23 09:59 Dose: 1 tab Documented By: CARMINA Al Hydroxide/Mg Hydroxide (Magnesium Hydrox/Alum Hydrox 30 Ml Oral.Susp) 30 ml PO Q4H PRN PRN Reason: Heartburn/Nausea Albuterol/Ipratropium (Albuterol/Iprat 2.5/0.5mg 3 Ml Ampul.Neb) 3 ml INHALE Q4H [facility] Last Admin: 06/04/23 11:54 Dose: Not Given Documented By: BRIA Non-Admin Reason: Patient Refused Dextrose (Dextrose 50 % 25 Gm/50 Ml Syringe) 25 gm IVPUSH Q15M PRN; Protocol PRN Reason: per Hypoglycemia Standing Ord. Enoxaparin Sodium (Enoxaparin Sodium 40 Mg/0.4 Ml Syringe) 40 mg SUBCUT Q24H [facility] Last Admin: 06/03/23 16:44 Dose: 40 mg Documented By: KO Glucose (Glucose Gel 15 Gm Gel..Gram.) 15 gm PO Q15M PRN; Protocol PRN Reason: per Hypoglycemia Standing Ord. Guaifenesin (Guaifenesin 200 Mg/10 Ml 10 Ml Liquid) 10 ml PO Q4H PRN PRN Reason: Cough Last Admin: 06/03/23 00:16 Dose: 10 ml Documented By: MANOJ Guaifenesin/Dextromethorphan (Guaifenesin Dm 100/10/5 Ml 5 Ml Syrup) 5 ml PO Q4H PRN PRN Reason: Cough Ceftriaxone Sodium 1 gm/ (Sodium Chloride) 50 mls @ 100 mls/hr IV Q24H [facility] Last Infusion: 06/03/23 13:33 Dose: Infused Documented By: KO Insulin Human Lispro (Insulin Lispro 100 Unit/Ml 3 Ml Vial) 0 unit SUBCUT QIDACHS [facility]; Protocol Last Admin: 06/04/23 12:35 Dose: 6 unit Documented By: GEORGE Methylprednisolone Sodium Succinate (Methylprednisolone Sod Succ 125 Mg/2 Ml Vial) 60 mg IVPUSH Q8H [facility] Last Admin: 06/04/23 12:35 Dose: 60 mg Documented By: GEORGE Ondansetron HCl (Ondansetron Hcl 4 Mg/2 Ml Vial) 4 mg IVPUSH Q8H PRN PRN Reason: Nausea and Vomiting Oseltamivir Phosphate (Oseltamivir Phosphate 30 Mg Capsule) 30 mg PO BID [facility] Stop: 06/08/23 09:01 Last Admin: 06/04/23 08:35 Dose: 30 mg Documented By: GEORGE Sodium Chloride (0.9 % Sodium Chloride Flush 3 Ml Syringe) [facility] Last Admin: 06/04/23 08:34 Dose: 3 ml Documented By: GEORGE Labs 06/04/23 06:20 06/04/23 06:20 Labs: Laboratory Results - last 24 hr 06/03/23 06/03/23 06/04/23 16:30 21:39 06:20 MCV 88.5 MCH 28.0 MCHC 31.6 RDW 13.6 Plt Count 164 MPV 8.9 L Immature Gran % (Auto) 0.5 H Neut % (Auto) 92.3 H Lymph % (Auto) 4.5 L [place] % (Auto) 2.6 Eos % (Auto) 0.0 Baso % (Auto) 0.1 Lymph # (Auto) 0.9 L [place] # (Auto) 0.5 Eos # (Auto) 0.0 Baso # (Auto) 0.0 Abs Immat Gran (auto) 0.11 H Absolute Neuts (auto) 18.6 H Absolute Nucleated RBC 0.000 Nucleated RBC % (auto) 0.0 Smear Tech's Comments VERIFIED Anion Gap 10 L Estim Creat Clear Calc 41.9 Estimated GFR > 60 POC Glucose 128 H 309 H Fasting Glucose 372 H* Calcium 9.3 Total Bilirubin 0.3 AST 29 ALT 20 Alkaline Phosphatase 99 Total Protein 6.6 Albumin 3.6 06/04/23 06/04/23 08:00 10:48 MCV MCH MCHC RDW Plt Count MPV Immature Gran % (Auto) Neut % (Auto) Lymph % (Auto) [place] % (Auto) Eos % (Auto) Baso % (Auto) Lymph # (Auto) [place] # (Auto) Eos # (Auto) Baso # (Auto) Abs Immat Gran (auto) Absolute Neuts (auto) Absolute Nucleated RBC Nucleated RBC % (auto) Smear Tech's Comments Anion Gap Estim Creat Clear Calc Estimated GFR POC Glucose 327 H 297 H Fasting Glucose Calcium Total Bilirubin AST ALT Alkaline Phosphatase Total Protein Albumin Microbiology Microbiology Results: Microbiology 06/01/23 14:02 Blood Culture - Preliminary Blood - Venous No growth after 48 hours. 06/01/23 13:39 Blood Culture - Preliminary Blood - Venous No growth after 48 hours. Assessment and Plan (1) COPD exacerbation: Status: Acute (2) Acute hypoxic respiratory failure: Status: Acute Plan 77-year-old male with 40 year pack history presents with worsening shortness of breath productive cough and hypoxia in the backdrop of influenza a. She had recently been treated for a frontal sinusitis with steroids and Augmentin however it never completely resolved per patient. She has responded to steroids DuoNeb will be admitted for same 1. Acute hypoxic respiratory failure/COPD exacerbation worsened by influenza a -met sepsis criteria; now resolved -ceftriaxone/azithromycin (4) -pulse dose methylprednisolone. . . 60 mg IV q.8 hours -titrate O2 to maintain sats greater than or equal to 90% -DuoNebs q.4 hours while awake -Tamiflu 75mg BID x 5 days 2. Hyperglycemia (likely to worsen with steroids) -lispro correctional scale -check A1C -adjust as indicated DNR DNI Magalis Will need ongoing hospitalization for IV antibiotics and steroids to treat hypoxic respiratory failure exacerbated by influenza a Quality Stroke Does the patient have a stroke diagnosis?: No VTE Prior VTE?: No VTE Risk Level:: Medical - moderate - high VTE Device Contraindication: Treatment Not Indicated VTE Drug Contraindication: N/A - Med Ordered
[2023-06-04] MEDS: cefTRIAXone sodium 1 GM in 0.9 % Sodium Chloride 50 ML IV (15:34)
[2023-06-04 17:16] LABS: Glucose, Whole Blood 188 mg/dL (60-115)
[2023-06-04] MEDS: Enoxaparin Sodium 40 MG/0.4 ML SYRINGE SUBCUT (17:52)
[2023-06-04 21:49] LABS: Glucose, Whole Blood 572 mg/dL (60-115)
[2023-06-05] VITALS (12 sets, daily range): BP systolic 141–186; BP diastolic 57–76; PULSE 73–114; RESP 17–21; TEMP 36.2–37; O2SAT 92–99
[2023-06-05 00:35] LABS: Glucose, Whole Blood 261 mg/dL (60-115)
[2023-06-05] MEDS: methylPREDNISolone Sod Succ 125 MG/2 ML VIAL 60 MG IVPUSH (05:23)
[2023-06-05] MEDS: hydrALAZINE HCl 20 MG/ML VIAL 10 MG IVPUSH (06:30)
[2023-06-05 07:32] LABS: MANUAL DIFF FLAG NO
[2023-06-05 07:42] LABS: Glucose, Whole Blood 242 mg/dL (60-115)
[2023-06-05 07:48] LABS: Basophils Percent Auto 0.1 % (0-2); Hematocrit 43.7 % (37.0-47.0); Hemoglobin 13.7 g/dl (12.0-16.0); Imm Gran Pct Auto 0.8 % (0.0-0.4); Lymphocytes Absolute Auto 0.9 X10*3/uL (1.2-4.9); Lymphocytes Percent Auto 7.9 % (20-40); Mean Corpuscular HGB Conc 31.4 g/dl (31.0-35.0); Mean Corpuscular Hemoglobin 27.5 pg (27.0-33.0); Mean Corpuscular Volume 87.6 fL (80.0-98.0); Mean Platelet Volume 8.4 fL (9.4-12.3); Monocytes Absolute Auto 0.3 X10*3/uL (0.1-1.2); Monocytes Percent Auto 2.8 % (2-11); Neutrophils Absolute Auto 10.6 x10*3/uL (2.0-8.3); Neutrophils Percent Auto 88.4 % (45-73); Platelet Count 156 X10*3/uL (160-400); Red Blood Count 4.99 X10*6/uL (4.20-5.50); Red Cell Distribution Width 13.4 % (11.0-16.0)
[2023-06-05 07:57] LABS: Alanine Aminotransferase 16 U/L (0-31); Albumin Level 3.3 g/dL (3.5-5.0); Alkaline Phosphatase 77 U/L (39-117); Anion Gap 10 (12-20); Aspartate Amino Transferase 16 U/L (5-31); Bilirubin Total 0.3 mg/dL (0.0-1.0); Blood Urea Nitrogen 24 mg/dL (9-16); Calcium 8.7 mg/dL (8.4-10.2); Carbon Dioxide 30 mmol/L (22-29); Chloride 104 mmol/L (96-108); Creatinine Clr Calc Pharmacy 45.8; Estimated Glomerular Filt Rate > 60; Glucose Fasting 247 mg/dL (60-99); Sodium 140 mmol/L (135-145)
[2023-06-05] MEDS: 0.9 % Sodium Chloride Flush 3 ML SYRINGE IVFLUSH ×3 (08:00→21:36)
[2023-06-05] MEDS: Oseltamivir Phosphate 30 MG CAPSULE PO ×2 (08:00→21:35)
[2023-06-05] MEDS: Insulin Lispro 100 UNIT/ML 3 ML VIAL SUBCUT ×4 (08:00→21:35)
[2023-06-05] MEDS: Albuterol/Iprat 2.5/0.5MG 3 ML AMPUL.NEB INHALE ×4 (08:08→19:48)
[2023-06-05 09:15] LABS: Estimated Average Glucose 209 mg/dL; Hemoglobin A1c % 8.9 % (<6.0)
[2023-06-05 09:40] LABS: Procalcitonin 1.28 ng/mL
[2023-06-05 11:04] LABS: ABG Base Excess 4.1 mmol/L; ABG HCO3 29 mmol/L (22-26); ABG pCO2 46 mmHg (32-45); ABG pO2 75 mmHg (83-108)
[2023-06-05 11:35] LABS: Glucose, Whole Blood 277 mg/dL (60-115)
[2023-06-05] MEDS: methylPREDNISolone Sod Succ 125 MG/2 ML VIAL 40 MG IVPUSH ×2 (11:43→21:35)
--- NOTE | 2023-06-05 13:00 | P.PNIM_ITS ---
Subjective Subjective Date of Service: 06/05/23 Interval History: somnolent but arousable this AM no fever on Oxymask 3.5L Review of Systems Review of Systems: Yes all other systems are reviewed and are negative Physical Exam 2 Vital Signs: Vital Signs: Last Vital Signs Temp 97.5 F 06/05/23 11:21 Pulse 91 06/05/23 11:25 Resp 20 06/05/23 11:25 BP 174/68 H 06/05/23 11:21 Pulse Ox 94 06/05/23 11:21 O2 Del Method Oxymask 06/05/23 11:21 O2 Flow Rate 3.5 06/05/23 11:21 Oxygen Flow Rate 4 06/01/23 12:34 BMI result Body Mass Index 22.2 Gen: somnolent but arousable, ill HEENT: sclera anicteric, moist mucus membranes Neck: supple Lungs: diminished Heart: regular rate and rhythm, no murmurs Abd: soft, non-tender, non-distended Ext: no edema Skin: warm/well-perfused Neuro: alert and oriented x3, no focal findings Psych: appropriate affect Objective Data Active Medications Acetaminophen (Acetaminophen 325 Mg Tablet) 650 mg PO Q6H PRN PRN Reason: Pain, Mild (Pain Scale 1-3) Hydrocodone Bitart/Acetaminophen (Hydrocodone Bit/Acetam 7.5/325 Tablet) 1 tab PO Q4H PRN PRN Reason: Cough Last Admin: 06/02/23 09:59 Dose: 1 tab Documented By: CARMINA Al Hydroxide/Mg Hydroxide (Magnesium Hydrox/Alum Hydrox 30 Ml Oral.Susp) 30 ml PO Q4H PRN PRN Reason: Heartburn/Nausea Albuterol/Ipratropium (Albuterol/Iprat 2.5/0.5mg 3 Ml Ampul.Neb) 3 ml INHALE Q4H [facility] Last Admin: 06/05/23 11:24 Dose: 3 ml Documented By: CORKY Dextrose (Dextrose 50 % 25 Gm/50 Ml Syringe) 25 gm IVPUSH Q15M PRN; Protocol PRN Reason: per Hypoglycemia Standing Ord. Enoxaparin Sodium (Enoxaparin Sodium 40 Mg/0.4 Ml Syringe) 40 mg SUBCUT Q24H [facility] Last Admin: 06/04/23 17:52 Dose: 40 mg Documented By: GEORGE Glucose (Glucose Gel 15 Gm Gel..Gram.) 15 gm PO Q15M PRN; Protocol PRN Reason: per Hypoglycemia Standing Ord. Guaifenesin (Guaifenesin 200 Mg/10 Ml 10 Ml Liquid) 10 ml PO Q4H PRN PRN Reason: Cough Last Admin: 06/03/23 00:16 Dose: 10 ml Documented By: MANOJ Guaifenesin/Dextromethorphan (Guaifenesin Dm 100/10/5 Ml 5 Ml Syrup) 5 ml PO Q4H PRN PRN Reason: Cough Ceftriaxone Sodium 1 gm/ (Sodium Chloride) 50 mls @ 100 mls/hr IV Q24H [facility] Last Infusion: 06/04/23 16:31 Dose: Infused Documented By: GEORGE Insulin Human Lispro (Insulin Lispro 100 Unit/Ml 3 Ml Vial) 0 unit SUBCUT QIDACHS [facility]; Protocol Last Admin: 06/05/23 11:44 Dose: 4 unit Documented By: SHAYAN Methylprednisolone Sodium Succinate (Methylprednisolone Sod Succ 125 Mg/2 Ml Vial) 40 mg IVPUSH Q12H [facility] Last Admin: 06/05/23 11:43 Dose: 40 mg Documented By: SHAYAN Ondansetron HCl (Ondansetron Hcl 4 Mg/2 Ml Vial) 4 mg IVPUSH Q8H PRN PRN Reason: Nausea and Vomiting Oseltamivir Phosphate (Oseltamivir Phosphate 30 Mg Capsule) 30 mg PO BID [facility] Stop: 06/08/23 09:01 Last Admin: 06/05/23 08:00 Dose: 30 mg Documented By: SHAYAN Sodium Chloride (0.9 % Sodium Chloride Flush 3 Ml Syringe) 3 ml IVFLUSH QSHIFT [facility] Last Admin: 06/05/23 08:00 Dose: 3 ml Documented By: SHAYAN Labs 06/05/23 06:55 06/05/23 06:55 Labs: Laboratory Results - last 24 hr 06/04/23 06/04/23 06/05/23 17:11 21:33 00:30 MCV MCH MCHC RDW Plt Count MPV Immature Gran % (Auto) Neut % (Auto) Lymph % (Auto) [place] % (Auto) Eos % (Auto) Baso % (Auto) Lymph # (Auto) [place] # (Auto) Eos # (Auto) Baso # (Auto) Abs Immat Gran (auto) Absolute Neuts (auto) Absolute Nucleated RBC Nucleated RBC % (auto) O2 Saturation ABG pH at Pt Temp ABG pCO2 at Pt Temp ABG pO2 at Pt Temp ABG HCO3 ABG Base Excess (Actual) Anion Gap Estim Creat Clear Calc Estimated GFR POC Glucose 188 H 572 H* 261 H Fasting Glucose Estimat Average Glucose Hemoglobin A1c % Calcium Total Bilirubin AST ALT Alkaline Phosphatase Total Protein Albumin Procalcitonin 06/05/23 06/05/23 06/05/23 06:55 07:32 10:59 MCV 87.6 MCH 27.5 MCHC 31.4 RDW 13.4 Plt Count 156 L MPV 8.4 L Immature Gran % (Auto) 0.8 H Neut % (Auto) 88.4 H Lymph % (Auto) 7.9 L [place] % (Auto) 2.8 Eos % (Auto) 0.0 Baso % (Auto) 0.1 Lymph # (Auto) 0.9 L [place] # (Auto) 0.3 Eos # (Auto) 0.0 Baso # (Auto) 0.0 Abs Immat Gran (auto) 0.10 H Absolute Neuts (auto) 10.6 H Absolute Nucleated RBC 0.000 Nucleated RBC % (auto) 0.0 O2 Saturation 95.0 ABG pH at Pt Temp 7.40 ABG pCO2 at Pt Temp 46 H ABG pO2 at Pt Temp 75 L ABG HCO3 29 H ABG Base Excess (Actual) 4.1 Anion Gap 10 L Estim Creat Clear Calc 45.8 Estimated GFR > 60 POC Glucose 242 H Fasting Glucose 247 H Estimat Average Glucose 209 Hemoglobin A1c % 8.9 H Calcium 8.7 D Total Bilirubin 0.3 AST 16 ALT 16 Alkaline Phosphatase 77 Total Protein 6.0 L Albumin 3.3 L Procalcitonin 1.28 06/05/23 11:23 MCV MCH MCHC RDW Plt Count MPV Immature Gran % (Auto) Neut % (Auto) Lymph % (Auto) [place] % (Auto) Eos % (Auto) Baso % (Auto) Lymph # (Auto) [place] # (Auto) Eos # (Auto) Baso # (Auto) Abs Immat Gran (auto) Absolute Neuts (auto) Absolute Nucleated RBC Nucleated RBC % (auto) O2 Saturation ABG pH at Pt Temp ABG pCO2 at Pt Temp ABG pO2 at Pt Temp ABG HCO3 ABG Base Excess (Actual) Anion Gap Estim Creat Clear Calc Estimated GFR POC Glucose 277 H Fasting Glucose Estimat Average Glucose Hemoglobin A1c % Calcium Total Bilirubin AST ALT Alkaline Phosphatase Total Protein Albumin Procalcitonin Assessment and Plan (1) COPD exacerbation: Status: Acute (2) Acute hypoxic respiratory failure: Status: Acute Plan d5 77yo F with 40 pk-yr smoking hx presenting with worsening dyspnea + productive cough, found to be hypoxic and having influenza A acute hypoxic respiratory failure due to COPD exacerbation due to influenza A with superimposed PNA - sepsis criteria resolved - ceftriaxone + azithromycin d5, BCx negative, trend PCT - oseltamivir 2 - wean steroids - wean O2 DM2 with hyperglycemia likely due to steroids - A1c 8.9 - mary-dose lispro VTE ppx - LMWH dispo - TBD In my clinical judgment, the patient requires continued inpatient hospitalization for the following reasons: hypoxia, IV ABX Total time managing care of this patient today: 35 minutes. Quality Stroke Does the patient have a stroke diagnosis?: No VTE Prior VTE?: No VTE Risk Level:: Medical - moderate - high VTE Device Contraindication: Treatment Not Indicated VTE Drug Contraindication: N/A - Med Ordered
[2023-06-05 13:29] LABS: ABG Refer to POC result
[2023-06-05] MEDS: cefTRIAXone sodium 1 GM in 0.9 % Sodium Chloride 50 ML IV (14:41)
[2023-06-05] MEDS: Nystatin Cream 15 GM TUBE 1 APPL TOPICAL ×2 (14:41→21:36)
--- NOTE | 2023-06-05 14:55 | MHC.CM.PN ---
EMR reviewed and per MD rounds, pt is not medically cleared for D/C due to hypoxia, and on IV abx. PT is recommending pulmonary rehab for pt at D/C. This CM met with pt to discuss and is agreeable to referrals being sent for STR/pulmonary rehab, pt did not have a preference. CM will continue to follow.
--- NOTE | 2023-06-05 16:02 | HO.WOUND ---
Wound Consult: Initial 77yr old female admitted to [facility] on? 06/01/23 17:24- See progress notes and H&P for detailed history. Wound consult placed for Abdominal and bilateral breast skin folds. Pt agreeable to assessment - chart review reveals Nysatin cream in place. Abdominal fold and bilateral breast folds with pink intact mirrored tissue -remains blanchable throughout and no open lesions noted at base of fold. Pt reports improvement since cleansing and cream application this morning. Recommend continue with antifungal cream or powder per provider orders and consider interdry use to translocate moisture. Recommendations: 1.Abdominal Skin Fold - Cleanse with PH balanced wipes twice daily, pat dry. Apply Antifungal cream or powder per provider orders - if powder is used be sure to dust off excess to not cake on patients skin. Apply Interdry to skin fold - be sure to leak atleast 2 inch exposed for wicking moisture to end of fabric away from skin. Change every otehr day or PRN for soiling. Interdry is available in the storeroom if not stocked on the unit. Re-consult wound care Nurse for wound deterioration or wound changes.
[2023-06-05 16:35] LABS: Glucose, Whole Blood 351 mg/dL (60-115)
[2023-06-05] MEDS: Enoxaparin Sodium 40 MG/0.4 ML SYRINGE SUBCUT (16:51)
[2023-06-05 20:44] LABS: Glucose, Whole Blood 349 mg/dL (60-115)
[2023-06-06] VITALS (13 sets, daily range): BP systolic 152–193; BP diastolic 70–88; PULSE 86–99; RESP 16–20; TEMP 36.3–36.7; O2SAT 90–96
[2023-06-06] MEDS: LORazepam 2 MG/ML VIAL 0.5 MG IVPUSH (01:28)
[2023-06-06] MEDS: Albuterol/Iprat 2.5/0.5MG 3 ML AMPUL.NEB INHALE ×5 (04:55→18:56)
--- NOTE | 2023-06-06 05:27 | PC.NURSE ---
PATIENT TRANSFERRED FROM [facility] TO [facility] VIA HER BED AT 0215. DX: COPD EXAC SECONDARY TO INFLUENZA. PATIENT AWAKE, CO-OPERATIVE BUT NOTED WITH ANXIETY. PT STATING NOT SLEEPING WELL, WANTS TO GO HOME, AND WHAT DO I DO NOW , FEELING. PLAN OF CARE EXPLAINED, REASSURANCE PROVIDED, COMFORT GIVEN. PT ALERT, ORIENTED BUT FORGETFUL. HFR PROTOCOL INITIATED WITH BED ALARM AND CAMERA IN USE. WEEPY AND ANXIOUS AT TIMES. oXYGEN ON AT 3 LITERS VIA OXY MASK, TELE MONITOR, SAT MONITOR IN USE. INFLUENZA PRECAUTIONS INITIATED. PT INCONTINENT TO A PUREWICK, SKIN CARE AND REPOSITIONING PROVIDED. NYSTATIN PRESENT TO ABD SKIN FOLDS, FUNGAL AND REDNESS. 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 #22 ANGIO AT RIGHT HAND, NO S/SX RESP DISTRESS,VSS. CALL [facility] REACH AND REINFORCED SAFETY AND ALERTING STAFF TO HER NEEDS. WILL CONTINUE TO MONITOR
[2023-06-06 07:17] LABS: Glucose, Whole Blood 298 mg/dL (60-115)
--- NOTE | 2023-06-06 08:24 | PC.NURSE ---
At approx 0800 patient made SI statements to respiratory therapist. This RN came to bedside to evaluate. Patient continued to made SI statements that she wanted to and would stab herself with a knife. notified, sitter at bedside
[2023-06-06] MEDS: LORazepam 2 MG/ML VIAL 1 MG IVPUSH (08:46)
[2023-06-06] MEDS: methylPREDNISolone Sod Succ 125 MG/2 ML VIAL 40 MG IVPUSH (09:29)
[2023-06-06] MEDS: amLODIPine Besylate 5 MG TABLET PO ×2 (09:29→13:09)
[2023-06-06] MEDS: Oseltamivir Phosphate 30 MG CAPSULE PO ×2 (09:29→20:19)
[2023-06-06] MEDS: 0.9 % Sodium Chloride Flush 3 ML SYRINGE IVFLUSH ×3 (09:30→21:41)
[2023-06-06] MEDS: Insulin Glargine,Hum.rec.anlog 100 UNIT/ML 10 ML VIAL 10 UNIT SUBCUT (09:58)
[2023-06-06] MEDS: Nystatin Cream 15 GM TUBE 1 APPL TOPICAL ×3 (10:01→21:41)
--- NOTE | 2023-06-06 10:55 | P.CNPS_ITS ---
History of Present Illness Date of Service: 06/06/23 Chief Complaint: COPD Exacerbation secondary to influenza A Requesting physician: Atul Buenrostro Discussed with referring provider: Yes Sources of Information: patient interviewed and chart reviewed HPI Narrative: The patient is a 77-year-old female unable to give a clear history but apparently on 06/06/2023 became increasingly agitated labile depressed and was threatening self-harm. 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 She was admitted with respiratory failure COPD exacerbation question of sepsis. When seen in the emergency room patient reportedly had a clear sensorium was able to answer questions and did not present initially with delirium or reported dementia type symptoms Past Psychiatric History: Unknown none noted Medical Evaluation Reviewed: Yes See above Personal & Social History: Patient is reportedly a living with 1 of her children PMFSH Social History: Patient lives with 2 daughters and grandchildren 1 of her granddaughters is reportedly healthcare proxy Substance History: None noted Diagnostics Vital Signs (24Hr): Vital Signs - 24 hr 06/05/23 11:21 06/05/23 11:25 06/05/23 13:16 Temperature 97.5 F Pulse Rate 91 91 91 Respiratory Rate 21 H 20 Blood Pressure 174/68 H Pulse Oximetry 94 Oxygen Delivery Method Oxymask Oxygen Flow Rate 3.5 06/05/23 15:10 06/05/23 15:23 06/05/23 18:59 Temperature 97.6 F 97.1 F Pulse Rate 87 73 99 Respiratory Rate 18 18 17 Blood Pressure 158/57 H 168/73 H Pulse Oximetry 95 92 Oxygen Delivery Method Oxymask Aerosol Mask Oxygen Flow Rate 3 4 06/05/23 19:48 06/05/23 23:13 06/06/23 03:39 Temperature 98.6 F 98.1 F Pulse Rate 94 95 87 Respiratory Rate 17 20 18 Blood Pressure 141/64 H 152/74 H Pulse Oximetry 92 92 Oxygen Delivery Method Oxymask Oxymask Oxygen Flow Rate 3 3 06/06/23 04:55 06/06/23 07:25 06/06/23 07:59 Temperature 97.6 F Pulse Rate 87 97 93 Respiratory Rate 18 16 16 Blood Pressure 193/86 H Pulse Oximetry 95 Oxygen Delivery Method Oxymask Oxygen Flow Rate 3 06/06/23 08:21 Temperature Pulse Rate Respiratory Rate Blood Pressure 182/88 H Pulse Oximetry Oxygen Delivery Method Oxygen Flow Rate BMI result Body Mass Index 22.2 Labs 06/07/23 06:06 06/07/23 06:06 Labs: Laboratory Results - last 48 hr 06/04/23 06/04/23 06/05/23 17:11 21:33 00:30 WBC RBC Hgb Hct MCV MCH MCHC RDW Plt Count MPV Immature Gran % (Auto) Neut % (Auto) Lymph % (Auto) Caroline % (Auto) Eos % (Auto) Baso % (Auto) Lymph # (Auto) Caroline # (Auto) Eos # (Auto) Baso # (Auto) Abs Immat Gran (auto) Absolute Neuts (auto) Absolute Nucleated RBC Nucleated RBC % (auto) O2 Saturation ABG pH at Pt Temp ABG pCO2 at Pt Temp ABG pO2 at Pt Temp ABG HCO3 ABG Base Excess (Actual) Sodium Potassium Chloride Carbon Dioxide Anion Gap BUN Creatinine Estim Creat Clear Calc Estimated GFR POC Glucose 188 H 572 H* 261 H Fasting Glucose Estimat Average Glucose Hemoglobin A1c % Calcium Total Bilirubin AST ALT Alkaline Phosphatase Total Protein Albumin Procalcitonin 06/05/23 06/05/23 06/05/23 06:55 07:32 10:59 WBC 12.0 H RBC 4.99 Hgb 13.7 Hct 43.7 MCV 87.6 MCH 27.5 MCHC 31.4 RDW 13.4 Plt Count 156 L MPV 8.4 L Immature Gran % (Auto) 0.8 H Neut % (Auto) 88.4 H Lymph % (Auto) 7.9 L Caroline % (Auto) 2.8 Eos % (Auto) 0.0 Baso % (Auto) 0.1 Lymph # (Auto) 0.9 L Caroline # (Auto) 0.3 Eos # (Auto) 0.0 Baso # (Auto) 0.0 Abs Immat Gran (auto) 0.10 H Absolute Neuts (auto) 10.6 H Absolute Nucleated RBC 0.000 Nucleated RBC % (auto) 0.0 O2 Saturation 95.0 ABG pH at Pt Temp 7.40 ABG pCO2 at Pt Temp 46 H ABG pO2 at Pt Temp 75 L ABG HCO3 29 H ABG Base Excess (Actual) 4.1 Sodium 140 Potassium 4.0 Chloride 104 Carbon Dioxide 30 H Anion Gap 10 L BUN 24 H Creatinine 0.75 Estim Creat Clear Calc 45.8 Estimated GFR > 60 POC Glucose 242 H Fasting Glucose 247 H Estimat Average Glucose 209 Hemoglobin A1c % 8.9 H Calcium 8.7 D Total Bilirubin 0.3 AST 16 ALT 16 Alkaline Phosphatase 77 Total Protein 6.0 L Albumin 3.3 L Procalcitonin 1.28 06/05/23 06/05/23 06/05/23 11:23 16:24 20:30 WBC RBC Hgb Hct MCV MCH MCHC RDW Plt Count MPV Immature Gran % (Auto) Neut % (Auto) Lymph % (Auto) Caroline % (Auto) Eos % (Auto) Baso % (Auto) Lymph # (Auto) Caroline # (Auto) Eos # (Auto) Baso # (Auto) Abs Immat Gran (auto) Absolute Neuts (auto) Absolute Nucleated RBC Nucleated RBC % (auto) O2 Saturation ABG pH at Pt Temp ABG pCO2 at Pt Temp ABG pO2 at Pt Temp ABG HCO3 ABG Base Excess (Actual) Sodium Potassium Chloride Carbon Dioxide Anion Gap BUN Creatinine Estim Creat Clear Calc Estimated GFR POC Glucose 277 H 351 H* 349 H Fasting Glucose Estimat Average Glucose Hemoglobin A1c % Calcium Total Bilirubin AST ALT Alkaline Phosphatase Total Protein Albumin Procalcitonin 06/06/23 07:10 WBC RBC Hgb Hct MCV MCH MCHC RDW Plt Count MPV Immature Gran % (Auto) Neut % (Auto) Lymph % (Auto) Caroline % (Auto) Eos % (Auto) Baso % (Auto) Lymph # (Auto) Caroline # (Auto) Eos # (Auto) Baso # (Auto) Abs Immat Gran (auto) Absolute Neuts (auto) Absolute Nucleated RBC Nucleated RBC % (auto) O2 Saturation ABG pH at Pt Temp ABG pCO2 at Pt Temp ABG pO2 at Pt Temp ABG HCO3 ABG Base Excess (Actual) Sodium Potassium Chloride Carbon Dioxide Anion Gap BUN Creatinine Estim Creat Clear Calc Estimated GFR POC Glucose 298 H Fasting Glucose Estimat Average Glucose Hemoglobin A1c % Calcium Total Bilirubin AST ALT Alkaline Phosphatase Total Protein Albumin Procalcitonin Imaging Radiology Impressions: ITS Impressions Chest X-Ray 06/01/23 13:57 IMPRESSION: No focal pneumonia or alveolar edema. Metallic density superimposes over the aorticopulmonary window region. Recommend inspection of the patient Mental Status Exam Mental Status Exam Narrative: The patient is seen in her room she is on precautions because of influenza patient is arousable she is wearing an oxygen mask. She is having some difficulty with articulation And attention ability to take in and process information is impaired she could not really answer in a linear coherent way could not explain regarding her behavior the night before she had some vague memory of being upset and related a somewhat rambling story about being a high upset with her children but was poorly informational and not necessarily related to the question. Patient's mood was anxious somewhat irritable no active self-harm not paranoid no hallucinations when seen ability to take in information concentration impulse control impaired she does have a sitter Medications Medications Current Medications Acetaminophen (Acetaminophen 325 Mg Tablet) 650 mg PO Q6H PRN PRN Reason: Pain, Mild (Pain Scale 1-3) Hydrocodone Bitart/Acetaminophen (Hydrocodone Bit/Acetam 7.5/325 Tablet) 1 tab PO Q4H PRN PRN Reason: Cough Last Admin: 06/02/23 09:59 Dose: 1 tab Al Hydroxide/Mg Hydroxide (Magnesium Hydrox/Alum Hydrox 30 Ml Oral.Susp) 30 ml PO Q4H PRN PRN Reason: Heartburn/Nausea Albuterol/Ipratropium (Albuterol/Iprat 2.5/0.5mg 3 Ml Ampul.Neb) 3 ml INHALE Q4H [facility] Last Admin: 06/06/23 07:59 Dose: 3 ml Amlodipine Besylate (Amlodipine Besylate 5 Mg Tablet) 5 mg PO DAILY [facility]IANA; Protocol Last Admin: 06/06/23 09:29 Dose: 5 mg Dextrose (Dextrose 50 % 25 Gm/50 Ml Syringe) 25 gm IVPUSH Q15M PRN; Protocol PRN Reason: per Hypoglycemia Standing Ord. Enoxaparin Sodium (Enoxaparin Sodium 40 Mg/0.4 Ml Syringe) 40 mg SUBCUT Q24H [facility] Last Admin: 06/05/23 16:51 Dose: 40 mg Glucose (Glucose Gel 15 Gm Gel..Gram.) 15 gm PO Q15M PRN; Protocol PRN Reason: per Hypoglycemia Standing Ord. Guaifenesin (Guaifenesin 200 Mg/10 Ml 10 Ml Liquid) 10 ml PO Q4H PRN PRN Reason: Cough Last Admin: 06/03/23 00:16 Dose: 10 ml Guaifenesin/Dextromethorphan (Guaifenesin Dm 100/10/5 Ml 5 Ml Syrup) 5 ml PO Q4H PRN PRN Reason: Cough Ceftriaxone Sodium 1 gm/ (Sodium Chloride) 50 mls @ 100 mls/hr IV Q24H [facility] Last Infusion: 06/05/23 16:51 Dose: Infused Insulin Glargine (Insulin Glargine,Hum.Rec.Anlog 100 Unit/Ml 10 Ml Vial) 10 unit SUBCUT DAILY [facility] Last Admin: 06/06/23 09:58 Dose: 10 unit Insulin Human Lispro (Insulin Lispro 100 Unit/Ml 3 Ml Vial) 0 unit SUBCUT QIDACHS [facility]; Protocol Last Admin: 06/06/23 09:54 Dose: Not Given Methylprednisolone Sodium Succinate (Methylprednisolone Sod Succ 125 Mg/2 Ml Vial) 40 mg IVPUSH Q24H [facility] Last Admin: 06/06/23 09:29 Dose: 40 mg Nystatin (Nystatin Cream 15 Gm Tube) 1 appl TOPICAL TID [facility]; Protocol Last Admin: 06/06/23 10:01 Dose: 1 appl Ondansetron HCl (Ondansetron Hcl 4 Mg/2 Ml Vial) 4 mg IVPUSH Q8H PRN PRN Reason: Nausea and Vomiting Oseltamivir Phosphate (Oseltamivir Phosphate 30 Mg Capsule) 30 mg PO BID [facility] Stop: 06/08/23 09:01 Last Admin: 06/06/23 09:29 Dose: 30 mg Sodium Chloride (0.9 % Sodium Chloride Flush 3 Ml Syringe) 3 ml IVFLUSH QSHIFT [facility] Last Admin: 06/06/23 09:30 Dose: 3 ml Allergies Allergies Allergy/AdvReac Type Severity Reaction Status Date / Time No Known Allergies Allergy Mild NKA Verified 06/01/23 12:43 Assessment & Plan Assessment & Plan (1) Acute delirium: Status: Acute Code(s): R41.0 - Disorientation, unspecified (2) COPD exacerbation: Status: Acute Code(s): J44.1 - Chronic obstructive pulmonary disease with (acute) exacerbation (3) Acute hypoxic respiratory failure: Status: Acute Code(s): J96.01 - Acute respiratory failure with hypoxia Plan Was asked to see the patient after she had an episode last night and this morning with agitation threatening to hurt herself. Patient reportedly came in the hospital not confused alert sensorium clear is appearing to be in an acute delirium in the context of an acute infection and use of steroid. Patient denies clear psychiatric history but is unable to give a clear history. She is rambling about some what appeared to be difficult issues in relationship to her children. When seen patient was confused but cooperative apparently lorazepam had cause greater confusion which she had received earlier Would recommend needed olanzapine 2.5 mg 2 3 times a day for severe agitation alternative could be use of low-dose Risperdal or Seroquel would avoid use of benzodiazepines unless patient was having a panic attack from steroids. Olanzapine or Risperdal or Seroquel for his steroid induced agitation and mood lability maintain sitter at this Would probably do better avoiding benzodiazepines given her level of confusion delirium If when possible which trying get a baseline cognitive exam and history about of present time seems to be delirium secondary to acute medical issues Total time managing care of this patient today __45__ minutes.
[2023-06-06 11:24] LABS: Glucose, Whole Blood 299 mg/dL (60-115)
--- NOTE | 2023-06-06 12:42 | HO.PM.IMPN ---
Subjective Subjective Date of Service: 06/06/23 Interval History: Overnight became agitated and this AM threatening to rip out IV and stab herself Sitter placed BP high Pt given 1 mg Ativan Daughter visited last night at 19:00 and she was fine without any AMS Review of Systems Review of Systems: Yes Unobtainable due to mental status Physical Exam Vital Signs: Vital Signs: Last Vital Signs Temp 97.6 F 06/06/23 12:00 Pulse 97 06/06/23 12:00 Resp 16 06/06/23 12:00 BP 185/78 H 06/06/23 12:00 Pulse Ox 96 06/06/23 12:00 O2 Del Method Oxymask 06/06/23 12:00 O2 Flow Rate 3 06/06/23 12:00 Oxygen Flow Rate 4 06/01/23 12:34 BMI result Body Mass Index 22.2 Gen: agitated, delirious HEENT: sclera anicteric, moist mucus membranes Neck: supple Lungs: diminished bilaterally Heart: regular rate and rhythm, no murmurs Abd: soft, non-tender, non-distended Ext: no edema Skin: warm/well-perfused Neuro: alert, disoriented Psych: impaired insight Objective Data Active Medications Acetaminophen (Acetaminophen 325 Mg Tablet) 650 mg PO Q6H PRN PRN Reason: Pain, Mild (Pain Scale 1-3) Hydrocodone Bitart/Acetaminophen (Hydrocodone Bit/Acetam 7.5/325 Tablet) 1 tab PO Q4H PRN PRN Reason: Cough Last Admin: 06/02/23 09:59 Dose: 1 tab Documented By: CARMINA Al Hydroxide/Mg Hydroxide (Magnesium Hydrox/Alum Hydrox 30 Ml Oral.Susp) 30 ml PO Q4H PRN PRN Reason: Heartburn/Nausea Albuterol/Ipratropium (Albuterol/Iprat 2.5/0.5mg 3 Ml Ampul.Neb) 3 ml INHALE Q4H [facility] Last Admin: 06/06/23 07:59 Dose: 3 ml Documented By: BRIA Amlodipine Besylate (Amlodipine Besylate 5 Mg Tablet) 5 mg PO ONCE ONE; Protocol Stop: 06/06/23 12:36 Amlodipine Besylate (Amlodipine Besylate 10 Mg Tablet) 10 mg PO DAILY DIANA; Protocol Dextrose (Dextrose 50 % 25 Gm/50 Ml Syringe) 25 gm IVPUSH Q15M PRN; Protocol PRN Reason: per Hypoglycemia Standing Ord. Enoxaparin Sodium (Enoxaparin Sodium 40 Mg/0.4 Ml Syringe) 40 mg SUBCUT Q24H [facility] Last Admin: 06/05/23 16:51 Dose: 40 mg Documented By: SHAYAN Glucose (Glucose Gel 15 Gm Gel..Gram.) 15 gm PO Q15M PRN; Protocol PRN Reason: per Hypoglycemia Standing Ord. Guaifenesin (Guaifenesin 200 Mg/10 Ml 10 Ml Liquid) 10 ml PO Q4H PRN PRN Reason: Cough Last Admin: 06/03/23 00:16 Dose: 10 ml Documented By: MANOJ Guaifenesin/Dextromethorphan (Guaifenesin Dm 100/10/5 Ml 5 Ml Syrup) 5 ml PO Q4H PRN PRN Reason: Cough Ceftriaxone Sodium 1 gm/ (Sodium Chloride) 50 mls @ 100 mls/hr IV Q24H [facility] Last Infusion: 06/05/23 16:51 Dose: Infused Documented By: SHAYAN Insulin Glargine (Insulin Glargine,Hum.Rec.Anlog 100 Unit/Ml 10 Ml Vial) 10 unit SUBCUT DAILY [facility] Last Admin: 06/06/23 09:58 Dose: 10 unit Documented By: STEPHANIE Insulin Human Lispro (Insulin Lispro 100 Unit/Ml 3 Ml Vial) 0 unit SUBCUT QIDACHS [facility]; Protocol Last Admin: 06/06/23 09:54 Dose: Not Given Documented By: STEPHANIE Non-Admin Reason: NPO Comments: patient refusing breakfast Nystatin (Nystatin Cream 15 Gm Tube) 1 appl TOPICAL TID [facility]; Protocol Last Admin: 06/06/23 10:01 Dose: 1 appl Documented By: STEPHANIE Ondansetron HCl (Ondansetron Hcl 4 Mg/2 Ml Vial) 4 mg IVPUSH Q8H PRN PRN Reason: Nausea and Vomiting Oseltamivir Phosphate (Oseltamivir Phosphate 30 Mg Capsule) 30 mg PO BID [facility] Stop: 06/08/23 09:01 Last Admin: 06/06/23 09:29 Dose: 30 mg Documented By: STEPHANIE Prednisone (Prednisone 20 Mg Tablet) 40 mg PO DAILY [facility] Sodium Chloride (0.9 % Sodium Chloride Flush 3 Ml Syringe) 3 ml IVFLUSH QSHIFT [facility] Last Admin: 06/06/23 09:30 Dose: 3 ml Documented By: STEPHANIE Labs 06/05/23 06:55 06/05/23 06:55 Labs: Laboratory Results - last 24 hr 06/05/23 06/05/23 06/06/23 16:24 20:30 07:10 POC Glucose 351 H* 349 H 298 H 06/06/23 11:14 POC Glucose 299 H Assessment and Plan (1) COPD exacerbation: Status: Acute (2) Acute hypoxic respiratory failure: Status: Acute Plan d6 77yo F with 40 pk-yr smoking hx presenting with worsening dyspnea + productive cough, found to be hypoxic and having influenza A and likely superimposed PNA acute hypoxic respiratory failure due to COPD exacerbation due to influenza A with superimposed PNA - sepsis criteria resolved but PCT elevated, continue ceftriaxone + azithromycin d6, BCx negative, recheck PCT tomorrow - oseltamivir d3 - wean steroids- prednisone 40 mg/d - wean O2 as tolerated agitated delirium/acute toxic-metabolic encephalopathy/SI - suspect steroid effect- will wean rapidly. Psychiatry consult. dyllan. DM2 with hyperglycemia likely due to steroids - A1c 8.9 - mary-dose lispro, add Lantus - not on any medications at home VTE ppx - LMWH dispo - TBD In my clinical judgment, the patient requires continued inpatient hospitalization for the following reasons: hypoxia, IV ABX I updated the pt's daughter by phone Total time managing care of this patient today: 35 minutes. Quality Stroke Does the patient have a stroke diagnosis?: No VTE Prior VTE?: No VTE Risk Level:: Medical - moderate - high VTE Device Contraindication: Treatment Not Indicated VTE Drug Contraindication: N/A - Med Ordered
[2023-06-06] MEDS: cefTRIAXone sodium 1 GM in 0.9 % Sodium Chloride 50 ML IV (13:05)
[2023-06-06] MEDS: predniSONE 20 MG TABLET 40 MG PO (13:10)
[2023-06-06 16:00] LABS: Glucose, Whole Blood 331 mg/dL (60-115)
[2023-06-06] MEDS: Insulin Lispro 100 UNIT/ML 3 ML VIAL SUBCUT ×2 (16:13→20:19)
[2023-06-06] MEDS: Enoxaparin Sodium 40 MG/0.4 ML SYRINGE SUBCUT (18:27)
[2023-06-06 20:05] LABS: Glucose, Whole Blood 305 mg/dL (60-115)
[2023-06-06] MEDS: HYDROcodone Bit/Acetam 7.5/325 TABLET 1 TAB PO (20:19)
[2023-06-07] VITALS (9 sets, daily range): BP systolic 147–184; BP diastolic 58–74; PULSE 78–108; RESP 16–20; TEMP 36.3–36.7; O2SAT 82–97
[2023-06-07] MEDS: HYDROcodone Bit/Acetam 7.5/325 TABLET 1 TAB PO ×2 (00:28→05:46)
[2023-06-07 06:18] LABS: Venous Blood Gas Refer to POC result
[2023-06-07] MEDS: Albuterol/Iprat 2.5/0.5MG 3 ML AMPUL.NEB INHALE ×3 (06:18→20:00)
[2023-06-07 06:22] LABS: VBG Base Excess 7.6 mmol/L; VBG HCO3 32 mmol/L (22-26); VBG pCO2 47 mmHg; VBG pH 7.45 (7.32-7.43); VBG pO2 73 mmHg
[2023-06-07 06:23] LABS: Hematocrit 42.6 % (37.0-47.0); Hemoglobin 13.7 g/dl (12.0-16.0); Mean Corpuscular HGB Conc 32.2 g/dl (31.0-35.0); Mean Corpuscular Hemoglobin 27.8 pg (27.0-33.0); Mean Corpuscular Volume 86.6 fL (80.0-98.0); Mean Platelet Volume 8.3 fL (9.4-12.3); Platelet Count 146 X10*3/uL (160-400); Red Blood Count 4.92 X10*6/uL (4.20-5.50); Red Cell Distribution Width 13.4 % (11.0-16.0); White Blood Count 14.6 X10*3/uL (4.8-10.8)
[2023-06-07 06:40] LABS: Anion Gap 11 (12-20); Blood Urea Nitrogen 24 mg/dL (9-16); Calcium 8.5 mg/dL (8.4-10.2); Carbon Dioxide 30 mmol/L (22-29); Chloride 106 mmol/L (96-108); Creatinine Clr Calc Pharmacy 52.1; Estimated Glomerular Filt Rate > 60; Glucose Random 146 mg/dL (60-115); Potassium 3.4 mmol/L (3.3-5.1); Sodium 144 mmol/L (135-145)
[2023-06-07 06:56] LABS: Procalcitonin 0.32 ng/mL
[2023-06-07 07:43] LABS: Glucose, Whole Blood 141 mg/dL (60-115)
[2023-06-07] MEDS: Insulin Glargine,Hum.rec.anlog 100 UNIT/ML 10 ML VIAL 10 UNIT SUBCUT (08:41)
[2023-06-07] MEDS: predniSONE 20 MG TABLET 40 MG PO (08:41)
[2023-06-07] MEDS: Insulin Lispro 100 UNIT/ML 3 ML VIAL SUBCUT ×4 (08:41→21:02)
[2023-06-07] MEDS: Oseltamivir Phosphate 30 MG CAPSULE PO ×2 (08:42→21:02)
[2023-06-07] MEDS: 0.9 % Sodium Chloride Flush 3 ML SYRINGE IVFLUSH ×3 (08:42→21:03)
[2023-06-07] MEDS: amLODIPine Besylate 10 MG TABLET PO (08:42)
[2023-06-07] MEDS: Nystatin Cream 15 GM TUBE 1 APPL TOPICAL ×3 (08:52→21:04)
--- NOTE | 2023-06-07 10:47 | HO.PM.IMPN ---
Subjective Subjective Date of Service: 06/07/23 Interval History: sleepy but arousable no breathing difficulty but still on 3L Oxymask no fever Review of Systems Review of Systems: Yes all other systems are reviewed and are negative Physical Exam Vital Signs: Vital Signs: Last Vital Signs Temp 97.3 F 06/07/23 07:48 Pulse 88 06/07/23 07:48 Resp 20 06/07/23 07:48 BP 184/74 H 06/07/23 07:48 Pulse Ox 97 06/07/23 07:48 O2 Del Method Oxymask 06/07/23 07:48 O2 Flow Rate 3 06/07/23 07:48 Oxygen Flow Rate 4 06/01/23 12:34 BMI result Body Mass Index 22.2 Gen: in no acute distress HEENT: sclera anicteric, moist mucus membranes Neck: supple Lungs: diminished bilaterally Heart: regular rate and rhythm, no murmurs Abd: soft, non-tender, non-distended Ext: no edema Skin: warm/well-perfused Neuro: somnolent but arousable, oriented to self Psych: impaired insight Objective Data Active Medications Acetaminophen (Acetaminophen 325 Mg Tablet) 650 mg PO Q6H PRN PRN Reason: Pain, Mild (Pain Scale 1-3) Al Hydroxide/Mg Hydroxide (Magnesium Hydrox/Alum Hydrox 30 Ml Oral.Susp) 30 ml PO Q4H PRN PRN Reason: Heartburn/Nausea Albuterol/Ipratropium (Albuterol/Iprat 2.5/0.5mg 3 Ml Ampul.Neb) 3 ml INHALE Q4H [facility] Last Admin: 06/07/23 07:42 Dose: 3 ml Documented By: BRIA Amlodipine Besylate (Amlodipine Besylate 10 Mg Tablet) 10 mg PO DAILY [facility]; Protocol Last Admin: 06/07/23 08:42 Dose: 10 mg Documented By: STEPHANIE Dextrose (Dextrose 50 % 25 Gm/50 Ml Syringe) 25 gm IVPUSH Q15M PRN; Protocol PRN Reason: per Hypoglycemia Standing Ord. Enoxaparin Sodium (Enoxaparin Sodium 40 Mg/0.4 Ml Syringe) 40 mg SUBCUT Q24H [facility] Last Admin: 06/06/23 18:27 Dose: 40 mg Documented By: STEPHANIE Glucose (Glucose Gel 15 Gm Gel..Gram.) 15 gm PO Q15M PRN; Protocol PRN Reason: per Hypoglycemia Standing Ord. Guaifenesin (Guaifenesin 200 Mg/10 Ml 10 Ml Liquid) 10 ml PO Q4H PRN PRN Reason: Cough Last Admin: 06/03/23 00:16 Dose: 10 ml Documented By: MANOJ Guaifenesin/Dextromethorphan (Guaifenesin Dm 100/10/5 Ml 5 Ml Syrup) 5 ml PO Q4H PRN PRN Reason: Cough Ceftriaxone Sodium 1 gm/ (Sodium Chloride) 50 mls @ 100 mls/hr IV Q24H [facility] Last Infusion: 06/06/23 14:04 Dose: Infused Documented By: STEPHANIE Insulin Glargine (Insulin Glargine,Hum.Rec.Anlog 100 Unit/Ml 10 Ml Vial) 10 unit SUBCUT DAILY [facility] Last Admin: 06/07/23 08:41 Dose: 10 unit Documented By: STEPHANIE Insulin Human Lispro (Insulin Lispro 100 Unit/Ml 3 Ml Vial) 0 unit SUBCUT QIDACHS [facility]; Protocol Last Admin: 06/07/23 08:41 Dose: 2 unit Documented By: STEPHANIE Nystatin (Nystatin Cream 15 Gm Tube) 1 appl TOPICAL TID [facility]; Protocol Last Admin: 06/07/23 08:52 Dose: 1 appl Documented By: STEPHANIE Olanzapine (Olanzapine 2.5 Mg Tablet) 2.5 mg PO Q8H PRN PRN Reason: agitation/delirium Ondansetron HCl (Ondansetron Hcl 4 Mg/2 Ml Vial) 4 mg IVPUSH Q8H PRN PRN Reason: Nausea and Vomiting Oseltamivir Phosphate (Oseltamivir Phosphate 30 Mg Capsule) 30 mg PO BID [facility] Stop: 06/08/23 09:01 Last Admin: 06/07/23 08:42 Dose: 30 mg Documented By: STEPHANIE Prednisone (Prednisone 20 Mg Tablet) 40 mg PO DAILY [facility] Last Admin: 06/07/23 08:41 Dose: 40 mg Documented By: STEPHANIE Sodium Chloride (0.9 % Sodium Chloride Flush 3 Ml Syringe) 3 ml IVFLUSH QSHIFT [facility] Last Admin: 06/07/23 08:42 Dose: 3 ml Documented By: STEPHANIE Labs 06/07/23 06:06 06/07/23 06:06 Labs: Laboratory Results - last 24 hr 06/06/23 06/06/23 06/06/23 11:14 15:54 19:37 MCV MCH MCHC RDW Plt Count MPV Absolute Nucleated RBC Nucleated RBC % (auto) VBG pH VBG pCO2 VBG pO2 VBG HCO3 VBG O2 Saturation VBG Base Excess Anion Gap Estim Creat Clear Calc Estimated GFR POC Glucose 299 H 331 H 305 H Random Glucose Calcium Procalcitonin 06/07/23 06/07/23 06/07/23 06:06 06:16 07:07 MCV 86.6 MCH 27.8 MCHC 32.2 RDW 13.4 Plt Count 146 L MPV 8.3 L Absolute Nucleated RBC 0.000 Nucleated RBC % (auto) 0.0 VBG pH 7.45 H VBG pCO2 47 VBG pO2 73 VBG HCO3 32 H VBG O2 Saturation 94.0 VBG Base Excess 7.6 Anion Gap 11 L Estim Creat Clear Calc 52.1 Estimated GFR > 60 POC Glucose 141 H Random Glucose 146 H Calcium 8.5 Procalcitonin 0.32 Microbiology Microbiology Results: Microbiology 06/01/23 14:02 Blood Culture - Final Blood - Venous No growth after 5 days. 06/01/23 13:39 Blood Culture - Final Blood - Venous No growth after 5 days. Assessment and Plan (1) COPD exacerbation: Status: Acute (2) Acute hypoxic respiratory failure: Status: Acute Plan d7 77yo F with 40 pk-yr smoking hx presenting with worsening dyspnea + productive cough, found to be hypoxic and having influenza A and likely superimposed PNA acute hypoxic respiratory failure due to COPD exacerbation due to influenza A with superimposed PNA - continue ceftriaxone + azithromycin d7, BCx negative, trend PCT - oseltamivir d4 - wean steroids- continue prednisone 40 mg/d - wean O2 as tolerated agitated delirium/acute toxic-metabolic encephalopathy/SI - suspect steroid effect- will wean rapidly. Psychiatry consulted- prn olanzapine. sitter. DM2 with hyperglycemia likely due to steroids - A1c 8.9 - mary-dose lispro, added Lantus - not on any medications at home HTN - started amlodipine VTE ppx - LMWH dispo - STR recommended In my clinical judgment, the patient requires continued inpatient hospitalization for the following reasons: hypoxia, IV ABX Total time managing care of this patient today: 35 minutes. Quality Stroke Does the patient have a stroke diagnosis?: No VTE Prior VTE?: No VTE Risk Level:: Medical - moderate - high VTE Device Contraindication: Treatment Not Indicated VTE Drug Contraindication: N/A - Med Ordered
[2023-06-07 11:18] LABS: Glucose, Whole Blood 259 mg/dL (60-115)
[2023-06-07] MEDS: cefTRIAXone sodium 1 GM in 0.9 % Sodium Chloride 50 ML IV (13:57)
--- NOTE | 2023-06-07 14:19 | MHC.CM.PN ---
EMR REVIEWED. PER MD ROUNDS PT NOT MEDICALLY CLEAR FOR DC AT THIS TIME, LIKELY TOMORROW. ALSO NEEDS CLEARANCE FROM CARE TEAM TO D/C SITTER. BED OFFER FROM [facility]. SPOKE WITH TIM, LIAISON FROM [facility] - WILL SUBMIT FOR AUTH TODAY AND WILL NEED DOCUMENTATION OF NO SITTER X24 HRS PRIOR TO DC. CM WILL CONTINUE TO FOLLOW.
--- NOTE | 2023-06-07 14:45 | MHC.CARE ---
CARE Team received consult for SI sitter- cleared . Pt is not medically cleared at this time. CARE Team not able to complete crisis assessment prior to medical clearance. Dr. Buenrostro made aware and plan to consult psychiatry. Please re-consult CARE Team upon medical clearance if indicated.
[2023-06-07 16:27] LABS: Glucose, Whole Blood 330 mg/dL (60-115)
[2023-06-07] MEDS: Enoxaparin Sodium 40 MG/0.4 ML SYRINGE SUBCUT (17:18)
[2023-06-07 20:36] LABS: Glucose, Whole Blood 268 mg/dL (60-115)
[2023-06-07] MEDS: OLANZapine 2.5 MG TABLET PO (21:02)
[2023-06-07] MEDS: Melatonin 3 MG TABLET 6 MG PO (22:50)
[2023-06-08] VITALS (9 sets, daily range): BP systolic 116–166; BP diastolic 54–82; PULSE 75–97; RESP 17–20; TEMP 36.2–36.7; O2SAT 90–98
[2023-06-08] MEDS: Albuterol/Iprat 2.5/0.5MG 3 ML AMPUL.NEB INHALE ×2 (07:38→11:10)
[2023-06-08 07:57] LABS: Glucose, Whole Blood 115 mg/dL (60-115)
[2023-06-08] MEDS: Oseltamivir Phosphate 30 MG CAPSULE PO (10:22)
[2023-06-08] MEDS: 0.9 % Sodium Chloride Flush 3 ML SYRINGE IVFLUSH ×3 (10:25→20:29)
[2023-06-08] MEDS: predniSONE 10 MG TABLET 20 MG PO (10:26)
--- NOTE | 2023-06-08 10:48 | PM.NEUROCN ---
History of Present Illness Data of Consult Service Date: 06/08/23 Primary Care Provider: None Physician HPI Reason for consult: Stroke 77 years old woman who was admitted hospital with pulmonary issues and related confusion and weakness. She had a CT scan of brain that revealed a possible left hemispheric stroke in an MRI was performed after which this consultation was obtained. When asked why she was in hospital, she stated that this was because of shortness of breath and now she was feeling much better. There was no complaint of any seizure focal weakness. Review of Systems Review of Systems: Recent shortness of breath in generalized weakness. [facility] Social History Social History Household Members: Family and Children Housing: House Comment: 1:1 sitter Patient Tobacco Use Status: Current everyday Tobacco user Tobacco use type: Cigarette Cigarette Packs Per Day: 0.5 Cigarettes Per Day: 10.0 Smoked in Last 30 Days: Yes Use of substances other than those prescribed or required for medical reasons: No Currently Displaying Signs/Symptoms of Drug Intoxication Withdrawal: No Advance Directives: No Advance Directives Information Provided: Yes Do you have thoughts of harming others: None Do you have a plan to hurt others: No Plan Recently lost weight without trying: Unsure Nutrition Risks: Acute nausea or vomiting x1 week Patient : No service: No Meds Allergies Allergy/AdvReac Type Severity Reaction Status Date / Time No Known Allergies Allergy Mild NKA Verified 06/01/23 12:43 Active Medications: Current Medications Acetaminophen (Acetaminophen 325 Mg Tablet) 650 mg PO Q6H PRN PRN Reason: Pain, Mild (Pain Scale 1-3) Al Hydroxide/Mg Hydroxide (Magnesium Hydrox/Alum Hydrox 30 Ml Oral.Susp) 30 ml PO Q4H PRN PRN Reason: Heartburn/Nausea Albuterol/Ipratropium (Albuterol/Iprat 2.5/0.5mg 3 Ml Ampul.Neb) 3 ml INHALE Q4H [facility] Last Admin: 06/08/23 07:38 Dose: 3 ml Amlodipine Besylate (Amlodipine Besylate 10 Mg Tablet) 10 mg PO DAILY [facility]; Protocol Last Admin: 06/08/23 10:13 Dose: Not Given Aspirin (Aspirin 81 Mg Tab.Chew) 81 mg PO DAILY [facility] Last Admin: 06/08/23 10:27 Dose: Not Given Atorvastatin Calcium (Atorvastatin Calcium 80 Mg Tablet) 80 mg PO BEDTIME [facility] Dextrose (Dextrose 50 % 25 Gm/50 Ml Syringe) 25 gm IVPUSH Q15M PRN; Protocol PRN Reason: per Hypoglycemia Standing Ord. Enoxaparin Sodium (Enoxaparin Sodium 40 Mg/0.4 Ml Syringe) 40 mg SUBCUT Q24H [facility] Last Admin: 06/07/23 17:18 Dose: 40 mg Glucose (Glucose Gel 15 Gm Gel..Gram.) 15 gm PO Q15M PRN; Protocol PRN Reason: per Hypoglycemia Standing Ord. Guaifenesin (Guaifenesin 200 Mg/10 Ml 10 Ml Liquid) 10 ml PO Q4H PRN PRN Reason: Cough Last Admin: 06/03/23 00:16 Dose: 10 ml Guaifenesin/Dextromethorphan (Guaifenesin Dm 100/10/5 Ml 5 Ml Syrup) 5 ml PO Q4H PRN PRN Reason: Cough Ceftriaxone Sodium 1 gm/ (Sodium Chloride) 50 mls @ 100 mls/hr IV Q24H [facility] Stop: 06/08/23 15:00 Last Infusion: 06/07/23 15:02 Dose: Infused Insulin Glargine (Insulin Glargine,Hum.Rec.Anlog 100 Unit/Ml 10 Ml Vial) 10 unit SUBCUT DAILY [facility] Last Admin: 06/08/23 10:13 Dose: Not Given Insulin Human Lispro (Insulin Lispro 100 Unit/Ml 3 Ml Vial) 0 unit SUBCUT QIDACHS [facility]; Protocol Last Admin: 06/08/23 10:11 Dose: Not Given Melatonin (Melatonin 3 Mg Tablet) 6 mg PO BEDTIME [facility] Last Admin: 06/07/23 22:50 Dose: 6 mg Nystatin (Nystatin Cream 15 Gm Tube) 1 appl TOPICAL TID [facility]; Protocol Last Admin: 06/08/23 10:16 Dose: Not Given Olanzapine (Olanzapine 2.5 Mg Tablet) 2.5 mg PO Q8H PRN PRN Reason: agitation/delirium Last Admin: 06/07/23 21:02 Dose: 2.5 mg Ondansetron HCl (Ondansetron Hcl 4 Mg/2 Ml Vial) 4 mg IVPUSH Q8H PRN PRN Reason: Nausea and Vomiting Prednisone (Prednisone 10 Mg Tablet) 30 mg PO DAILY [facility]; Taper Stop: 06/14/23 08:59 Last Admin: 06/08/23 10:26 Dose: 30 mg Sodium Chloride (0.9 % Sodium Chloride Flush 3 Ml Syringe) 3 ml IVFLUSH QSHIFT [facility] Last Admin: 06/08/23 10:25 Dose: 3 ml Home Medications Medication Instructions Recorded Confirmed Last Taken Type No Known Home Meds 06/01/23 06/01/23 Unknown History Physical Exam Vital Signs: Vital Signs: Last Vital Signs Temp 97.5 F 06/08/23 07:42 Pulse 97 06/08/23 10:19 Resp 18 06/08/23 07:42 BP 116/54 L 06/08/23 10:19 Pulse Ox 92 06/08/23 10:19 O2 Del Method Nasal Cannula 06/08/23 07:42 O2 Flow Rate 4.0 06/08/23 07:42 Oxygen Flow Rate 4 06/01/23 12:34 BMI result Body Mass Index 22.2 Neuro: Other: She is drowsy but I was able to wake her up. She was able to answer questions. Spontaneity and fluency of speech with normal. Comprehension was normal. Face was symmetrical. Visual rolon are full. There was no focal arm weakness. She was able to wiggle toes without difficulty. Speech was normal. Results Labs 06/07/23 06:06 06/07/23 06:06 Labs: Noncontrast head CT revealed a subacute left para fall sign infarct an MRI of brain confirm did. Also noted chronic right parieto-occipital embolic looking infarct moderate cerebral atrophy and moderate chronic microvascular ischemic changes. Microbiology Microbiology Results: Microbiology 06/01/23 14:02 Blood - Venous Blood Culture - Final No growth after 5 days. 06/01/23 13:39 Blood - Venous Blood Culture - Final No growth after 5 days. 06/01/23 18:37 Urine clean catch - Clean Catch Midstream Urine Culture - Final Assessment and Plan (1) Cerebral infarction: Qualifiers: Cerebral infarction mechanism: embolism Precerebral and cerebral artery: anterior cerebral artery Laterality of affected vessel: left Qualified Code(s): I63.422 - Cerebral infarction due to embolism of left anterior cerebral artery Status: Acute 77 years old woman with subacute left anterior cerebral artery area ischemic infarction. She also had a similar chronic infarction right parieto-occipital lobe in some microvascular ischemic changes. These findings are suggestive of possible source of embolism, likely heart. I recommend CTA of brain and neck to look at her vasculature and also investigations for atrial fibrillation. In the meantime I recommend treating with anti-platelet agents of blood pressure control. Procedures Date of Service Date of Service: 06/08/23
[2023-06-08 11:17] LABS: Glucose, Whole Blood 151 mg/dL (60-115)
[2023-06-08] MEDS: cefTRIAXone sodium 1 GM in 0.9 % Sodium Chloride 50 ML IV (13:54)
--- NOTE | 2023-06-08 14:09 | P.PNIM_ITS ---
Subjective Subjective Date of Service: 06/08/23 Interval History: Dyspnea improving though requiring 4L O2 CTH and MRI show WILLIAM stroke though no facial droop and no arm/leg weakness Review of Systems Review of Systems: Yes all other systems are reviewed and are negative Physical Exam 2 Vital Signs: Vital Signs: Last Vital Signs Temp 97.2 F 06/08/23 11:38 Pulse 77 06/08/23 11:38 Resp 18 06/08/23 11:38 BP 136/62 06/08/23 11:38 Pulse Ox 93 06/08/23 11:38 O2 Del Method Nasal Cannula 06/08/23 11:38 O2 Flow Rate 4.0 06/08/23 11:38 Oxygen Flow Rate 4 06/01/23 12:34 BMI result Body Mass Index 22.2 Gen: in no acute distress HEENT: sclera anicteric, moist mucus membranes Neck: supple Lungs: diminished bilaterally Heart: regular rate and rhythm, no murmurs Abd: soft, non-tender, non-distended Ext: no edema Skin: warm/well-perfused Neuro: NAD, no pronator drift, mildly decreased R utility aide strength but otherwise normal strength in upper extremities Psych: impaired insight Objective Data Active Medications Acetaminophen (Acetaminophen 325 Mg Tablet) 650 mg PO Q6H PRN PRN Reason: Pain, Mild (Pain Scale 1-3) Al Hydroxide/Mg Hydroxide (Magnesium Hydrox/Alum Hydrox 30 Ml Oral.Susp) 30 ml PO Q4H PRN PRN Reason: Heartburn/Nausea Albuterol/Ipratropium (Albuterol/Iprat 2.5/0.5mg 3 Ml Ampul.Neb) 3 ml INHALE Q4H [facility] Last Admin: 06/08/23 11:10 Dose: 3 ml Documented By: ROSEANNA Amlodipine Besylate (Amlodipine Besylate 10 Mg Tablet) 10 mg PO DAILY [facility]; Protocol Last Admin: 06/08/23 10:13 Dose: Not Given Documented By: DIONI Non-Admin Reason: Patient Refused Aspirin (Aspirin 81 Mg Tab.Chew) 81 mg PO DAILY [facility] Last Admin: 06/08/23 10:27 Dose: Not Given Documented By: DIONI Non-Admin Reason: Patient Refused Atorvastatin Calcium (Atorvastatin Calcium 80 Mg Tablet) 80 mg PO BEDTIME [facility] Dextrose (Dextrose 50 % 25 Gm/50 Ml Syringe) 25 gm IVPUSH Q15M PRN; Protocol PRN Reason: per Hypoglycemia Standing Ord. Enoxaparin Sodium (Enoxaparin Sodium 40 Mg/0.4 Ml Syringe) 40 mg SUBCUT Q24H [facility] Last Admin: 06/07/23 17:18 Dose: 40 mg Documented By: STEPHANIE Glucose (Glucose Gel 15 Gm Gel..Gram.) 15 gm PO Q15M PRN; Protocol PRN Reason: per Hypoglycemia Standing Ord. Guaifenesin (Guaifenesin 200 Mg/10 Ml 10 Ml Liquid) 10 ml PO Q4H PRN PRN Reason: Cough Last Admin: 06/03/23 00:16 Dose: 10 ml Documented By: MANOJ Guaifenesin/Dextromethorphan (Guaifenesin Dm 100/10/5 Ml 5 Ml Syrup) 5 ml PO Q4H PRN PRN Reason: Cough Ceftriaxone Sodium 1 gm/ (Sodium Chloride) 50 mls @ 100 mls/hr IV Q24H [facility] Stop: 06/08/23 15:00 Last Admin: 06/08/23 13:54 Dose: 100 mls/hr Documented By: DIONI Insulin Glargine (Insulin Glargine,Hum.Rec.Anlog 100 Unit/Ml 10 Ml Vial) 10 unit SUBCUT DAILY [facility] Last Admin: 06/08/23 10:13 Dose: Not Given Documented By: DIONI Non-Admin Reason: Patient Refused Insulin Human Lispro (Insulin Lispro 100 Unit/Ml 3 Ml Vial) 0 unit SUBCUT QIDACHS [facility]; Protocol Last Admin: 06/08/23 13:05 Dose: Not Given Documented By: DIONI Non-Admin Reason: Patient Refused Melatonin (Melatonin 3 Mg Tablet) 6 mg PO BEDTIME [facility] Last Admin: 06/07/23 22:50 Dose: 6 mg Documented By: LUCIEN Nystatin (Nystatin Cream 15 Gm Tube) 1 appl TOPICAL TID [facility]; Protocol Last Admin: 06/08/23 10:16 Dose: Not Given Documented By: DIONI Non-Admin Reason: Patient Refused Olanzapine (Olanzapine 2.5 Mg Tablet) 2.5 mg PO Q8H PRN PRN Reason: agitation/delirium Last Admin: 06/07/23 21:02 Dose: 2.5 mg Documented By: LUCIEN Ondansetron HCl (Ondansetron Hcl 4 Mg/2 Ml Vial) 4 mg IVPUSH Q8H PRN PRN Reason: Nausea and Vomiting Prednisone (Prednisone 10 Mg Tablet) 30 mg PO DAILY [facility]; Taper Stop: 06/14/23 08:59 Last Admin: 06/08/23 10:26 Dose: 30 mg Documented By: DIONI Sodium Chloride (0.9 % Sodium Chloride Flush 3 Ml Syringe) 3 ml IVFLUSH QSHIFT [facility] Last Admin: 06/08/23 10:25 Dose: 3 ml Documented By: DIONI Labs 06/07/23 06:06 06/07/23 06:06 Labs: Laboratory Results - last 24 hr 06/07/23 06/07/23 06/08/23 16:22 20:21 07:51 POC Glucose 330 H 268 H 115 06/08/23 11:12 POC Glucose 151 H Impressions Brain MRI 06/07/23 15:53 IMPRESSION: 1. 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 No evidence of hemorrhagic conversion. 2. Chronic region of encephalomalacia within the right occipital lobe. Moderate underlying microangiopathy and generalized cerebral volume loss. Carotid Doppler Study 06/08/23 09:16 IMPRESSION: 1. RIGHT: Moderate, hemodynamically significant stenosis of the proximal right internal carotid artery corresponding to a 50-79% stenosis by velocity criteria. 2. LEFT: Minimal, non-hemodynamically significant stenosis of the proximal left internal carotid artery corresponding to a 0-49% stenosis by velocity criteria. 3. Bilateral subclavian artery stenoses. Antegrade flow in both vertebral arteries. Assessment and Plan (1) COPD exacerbation: Status: Acute (2) Acute hypoxic respiratory failure: Status: Acute Plan d8 77yo F with 40 pk-yr smoking hx presenting with worsening dyspnea + productive cough, found to be hypoxic and having influenza A and likely superimposed PNA found to have CVA acute-subacute L WILLIAM stroke [and chronic right parieto-occipital stroke] - Neuro consulted, will place on telemetry to look for atrial fibrillation, also CTA of brain and neck to check vasculature. ASA, statin. PT/OT. acute hypoxic respiratory failure due to COPD exacerbation due to influenza A with superimposed PNA - completed 7d of ceftriaxone, BCx negative, trend PCT - oseltamivir d5/5 - wean steroids- prednisone 30 mg/d x2d then 20 mg/d x 2d then 10 mg/d x2d - wean O2 as tolerated but may require home O2 agitated delirium/acute toxic-metabolic encephalopathy/SI superimposed on unspecified dementia - suspect steroid effect- weaning rapidly. Psychiatry reconsult- is sitter still needed? DM2 with hyperglycemia likely due to steroids - A1c 8.9 - mary-dose lispro, added Lantus - not on any medications at home HTN - started amlodipine tobacco abuse - NRT VTE ppx - LMWH dispo - STR recommended In my clinical judgment, the patient requires continued inpatient hospitalization for the following reasons: hypoxia, CVA workup Total time managing care of this patient today: 50 minutes. Quality Stroke Does the patient have a stroke diagnosis?: No VTE Prior VTE?: No VTE Risk Level:: Medical - moderate - high VTE Device Contraindication: Treatment Not Indicated VTE Drug Contraindication: N/A - Med Ordered
--- NOTE | 2023-06-08 15:41 | PC.NURSE ---
MD aware of CT results, Clinical Sup notified.
--- NOTE | 2023-06-08 15:46 | PC.NURSE ---
In to see patient this morning. Patient's grand daughter was in the room, and was complaining that the patient was getting too many meds and that she doesn't take any medications at home. Grand daughter told patient not to take any medications from the nurse this morning. Patient did not get her asa 81mg, norvasc 10mg, or any of her insulin, both short and long acting, because patient refused. Pt has a sub acute infarct per neurology after reviewing MRI of head. Hospitalist discussed MRI results with daughter.
[2023-06-08] MEDS: Nystatin Cream 15 GM TUBE 1 APPL TOPICAL ×2 (16:16→20:30)
[2023-06-08 16:25] LABS: Glucose, Whole Blood 248 mg/dL (60-115)
[2023-06-08] MEDS: Enoxaparin Sodium 40 MG/0.4 ML SYRINGE SUBCUT (16:32)
[2023-06-08] MEDS: Insulin Lispro 100 UNIT/ML 3 ML VIAL SUBCUT ×2 (16:34→20:29)
[2023-06-08 20:17] LABS: Glucose, Whole Blood 259 mg/dL (60-115)
[2023-06-08] MEDS: Melatonin 3 MG TABLET 6 MG PO (20:28)
[2023-06-08] MEDS: Atorvastatin Calcium 80 MG TABLET PO (20:28)
[2023-06-09] VITALS (8 sets, daily range): BP systolic 130–187; BP diastolic 57–82; PULSE 69–88; RESP 17–18; TEMP 36–36.8; O2SAT 91–98
--- NOTE | 2023-06-09 | PC.NURSE ---
Assumed care of pt at 19:15. See shift assessment and emar for full details. Handoff report given to oncoming RN at 23:15.
--- NOTE | 2023-06-09 04:17 | PC.NURSE ---
SUPERVISOR DIE CASTING took BP, with SBP resulting 170-180 around 0315 this morning. Patient was upset at the time and aggitated over being woken up. I rechecked BP a bit later after patient calmed dowm and back to sleep. Pt remained calm.
[2023-06-09] MEDS: Nystatin Cream 15 GM TUBE 1 APPL TOPICAL ×3 (06:45→21:05)
[2023-06-09 07:40] LABS: Glucose, Whole Blood 148 mg/dL (60-115)
[2023-06-09 07:49] LABS: Hematocrit 42.4 % (37.0-47.0); Hemoglobin 13.6 g/dl (12.0-16.0); Mean Corpuscular HGB Conc 32.1 g/dl (31.0-35.0); Mean Corpuscular Hemoglobin 27.6 pg (27.0-33.0); Mean Platelet Volume 9.1 fL (9.4-12.3); Platelet Count 123 X10*3/uL (160-400); Red Blood Count 4.93 X10*6/uL (4.20-5.50); Red Cell Distribution Width 13.3 % (11.0-16.0); White Blood Count 13.5 X10*3/uL (4.8-10.8)
[2023-06-09 08:00] LABS: Cholesterol 186 mg/dL (<200); HDL Cholesterol 48 mg/dL (>40); LDL Cholesterol Calculated 108 mg/dL (<100); Triglycerides 152 mg/dL (<150)
[2023-06-09 08:02] LABS: Anion Gap 15 (12-20); Blood Urea Nitrogen 18 mg/dL (9-16); Calcium 8.6 mg/dL (8.4-10.2); Carbon Dioxide 28 mmol/L (22-29); Chloride 104 mmol/L (96-108); Creatinine Clr Calc Pharmacy 54.6; Estimated Glomerular Filt Rate > 60; Glucose Random 145 mg/dL (60-115); Potassium 3.4 mmol/L (3.3-5.1); Sodium 144 mmol/L (135-145)
[2023-06-09] MEDS: predniSONE 10 MG TABLET 20 MG PO (08:03)
[2023-06-09] MEDS: 0.9 % Sodium Chloride Flush 3 ML SYRINGE IVFLUSH ×3 (08:04→21:05)
[2023-06-09] MEDS: Insulin Lispro 100 UNIT/ML 3 ML VIAL SUBCUT ×4 (08:04→21:04)
[2023-06-09] MEDS: Aspirin 81 MG TAB.CHEW PO (08:04)
[2023-06-09] MEDS: amLODIPine Besylate 10 MG TABLET PO (08:04)
[2023-06-09 08:07] LABS: Reflex LDLD? No
[2023-06-09] MEDS: Insulin Glargine,Hum.rec.anlog 100 UNIT/ML 10 ML VIAL 10 UNIT SUBCUT (08:11)
--- NOTE | 2023-06-09 09:28 | PM.PSYCN ---
History of Present Illness Date of Service: 06/09/2023 Chief Complaint: COPD Exacerbation secondary to influenza A Reason for Consult: Review for depression, suicidal ideations and need for one-to-one level of observation Requesting physician: Atul Buenrostro Discussed with referring provider: Yes Sources of Information: patient interviewed and chart reviewed HPI Narrative: The patient is a 77-year-old female unable to give a clear history but apparently on 06/06/2023 became increasingly agitated labile depressed and was threatening self-harm. 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 She was admitted with respiratory failure COPD exacerbation question of sepsis. When seen in the emergency room patient reportedly had a clear sensorium was able to answer questions and did not present initially with delirium or reported dementia type symptoms. She is well known to me from some years ago at [facility] Two days ago in a passing comment to administrative technician she mentioned about not wanting to go on. She has not been on any psychotropic medications in the past several years and has been stable. She was able to recognize me. She denies any symptoms of depression. She denies any suicidal ideations. She has no history of suicide attempts. No history of psychiatric hospitalizations. No history of substance abuse. Past Psychiatric History: Unknown none noted Review of Systems Review of Systems Breathing problems Yes all other systems are reviewed and are negative PMFSH Social History: Patient lives with 2 daughters and grandchildren 1 of her granddaughters is reportedly healthcare proxy Diagnostics Vital Signs (24Hr): Vital Signs - 24 hr 06/08/23 10:19 06/08/23 11:13 06/08/23 11:38 Temperature 97.2 F Pulse Rate 97 79 77 Respiratory Rate 20 18 Blood Pressure 116/54 L 136/62 Pulse Oximetry 92 93 Oxygen Delivery Method [place] Nasal Cannula Oxygen Flow Rate 4.0 06/08/23 15:18 06/08/23 19:31 06/09/23 00:00 Temperature 97.2 F 97.7 F 98.0 F Pulse Rate 87 96 88 Respiratory Rate 18 17 18 Blood Pressure 145/82 H 125/60 172/82 H Pulse Oximetry 90 L 94 95 Oxygen Delivery Method [place] Nasal Cannula [place] Nasal Cannula Nasal Cannula Oxygen Flow Rate 3.0 3 3 06/09/23 03:34 06/09/23 04:16 06/09/23 08:00 Temperature 97.6 F 97.3 F Pulse Rate 84 85 Respiratory Rate 18 18 Blood Pressure 187/82 H 152/60 H 148/65 H Pulse Oximetry 98 91 L Oxygen Delivery Method Nasal Cannula [place] Nasal Cannula Oxygen Flow Rate 3 3 BMI result Body Mass Index 22.2 Labs 06/09/23 06:40 06/09/23 06:40 Labs: Laboratory Results - last 48 hr 06/07/23 06/07/23 06/07/23 11:13 16:22 20:21 WBC RBC Hgb Hct MCV MCH MCHC RDW Plt Count MPV Absolute Nucleated RBC Nucleated RBC % (auto) Sodium Potassium Chloride Carbon Dioxide Anion Gap BUN Creatinine Estim Creat Clear Calc Estimated GFR POC Glucose 259 H 330 H 268 H Random Glucose Calcium Triglycerides Cholesterol LDL Cholesterol, Calc HDL Cholesterol 06/08/23 06/08/23 06/08/23 07:51 11:12 16:19 WBC RBC Hgb Hct MCV MCH MCHC RDW Plt Count MPV Absolute Nucleated RBC Nucleated RBC % (auto) Sodium Potassium Chloride Carbon Dioxide Anion Gap BUN Creatinine Estim Creat Clear Calc Estimated GFR POC Glucose 115 151 H 248 H Random Glucose Calcium Triglycerides Cholesterol LDL Cholesterol, Calc HDL Cholesterol 06/08/23 06/09/23 06/09/23 20:13 06:40 07:26 WBC 13.5 H RBC 4.93 Hgb 13.6 Hct 42.4 MCV 86.0 MCH 27.6 MCHC 32.1 RDW 13.3 Plt Count 123 L MPV 9.1 L Absolute Nucleated RBC 0.000 Nucleated RBC % (auto) 0.0 Sodium 144 Potassium 3.4 Chloride 104 Carbon Dioxide 28 Anion Gap 15 BUN 18 H Creatinine 0.63 Estim Creat Clear Calc 54.6 Estimated GFR > 60 POC Glucose 259 H 148 H Random Glucose 145 H Calcium 8.6 Triglycerides 152 H Cholesterol 186 LDL Cholesterol, Calc 108 H HDL Cholesterol 48 Imaging Radiology Impressions: ITS Impressions Chest X-Ray 06/01/23 13:57 IMPRESSION: No focal pneumonia or alveolar edema. Metallic density superimposes over the aorticopulmonary window region. Recommend inspection of the patient Head CT 06/07/23 08:30 IMPRESSION: Probable left parafalcine frontal parietal infarct, age indeterminate. Probable right occipital infarct, probably old. Findings could be better evaluated with brain MRI/MRA. Small bilateral mastoid effusions. Findings will be communicated by the [place] workflow administrative services specialist Brain MRI 06/07/23 15:53 IMPRESSION: 1. 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 No evidence of hemorrhagic conversion. 2. Chronic region of encephalomalacia within the right occipital lobe. Moderate underlying microangiopathy and generalized cerebral volume loss. Carotid Doppler Study 06/08/23 09:16 IMPRESSION: 1. RIGHT: Moderate, hemodynamically significant stenosis of the proximal right internal carotid artery corresponding to a 50-79% stenosis by velocity criteria. 2. LEFT: Minimal, non-hemodynamically significant stenosis of the proximal left internal carotid artery corresponding to a 0-49% stenosis by velocity criteria. 3. Bilateral subclavian artery stenoses. Antegrade flow in both vertebral arteries. Head/Neck CTA 06/08/23 15:00 IMPRESSION: There is an evolving infarct within the vascular territory of left anterior cerebral artery. No acute hemorrhage. There are chronic cortical infarcts within the right occipital lobe and scattered chronic small vessel ischemic changes primarily involving the periventricular white matter. No abnormal intracranial mass or enhancement. Heavily calcified atheromatous plaque causes high-grade focal narrowing at the origin of the left subclavian artery. The brachiocephalic artery is not well assessed on this examination due to patient motion and the timing of the contrast injection. Heavily calcified atheromatous plaque also involves both carotid bifurcations. There is 50% stenosis at the origin of left internal carotid artery and 20% stenosis at the origin of the right internal carotid artery. Atheromatous calcification causes at least mild irregular narrowing of the cavernous segments of both internal carotid arteries. No intracranial large vessel occlusion. This critical result was discussed with Dr Buenrostro at 3:28 PM on 06/08/2023 and it was ascertained that the content and urgency of the report was understood at the time of direct communication. Mental Status Exam Mental Status Exam Narrative: Patient was seen for evaluation today. She was laying comfortably in bed with an oxygen cannula eye. She was able to recognize me immediately. Speech is a little difficult. Good eye contact. Affect is appropriate. No signs of psychosis. No overt signs of depression nor does she admit to any symptoms. She denies any suicidal ideations. Cognitively she is exhibiting slow thought processes but overall appears to be intact. Judgment is intact Medications Medications Current Medications Acetaminophen (Acetaminophen 325 Mg Tablet) 650 mg PO Q6H PRN PRN Reason: Pain, Mild (Pain Scale 1-3) Al Hydroxide/Mg Hydroxide (Magnesium Hydrox/Alum Hydrox 30 Ml Oral.Susp) 30 ml PO Q4H PRN PRN Reason: Heartburn/Nausea Amlodipine Besylate (Amlodipine Besylate 10 Mg Tablet) 10 mg PO DAILY [facility]; Protocol Last Admin: 06/09/23 08:04 Dose: 10 mg Aspirin (Aspirin 81 Mg Tab.Chew) 81 mg PO DAILY [facility] Last Admin: 06/09/23 08:04 Dose: 81 mg Atorvastatin Calcium (Atorvastatin Calcium 80 Mg Tablet) 80 mg PO BEDTIME [facility] Last Admin: 06/08/23 20:28 Dose: 80 mg Dextrose (Dextrose 50 % 25 Gm/50 Ml Syringe) 25 gm IVPUSH Q15M PRN; Protocol PRN Reason: per Hypoglycemia Standing Ord. Enoxaparin Sodium (Enoxaparin Sodium 40 Mg/0.4 Ml Syringe) 40 mg SUBCUT Q24H [facility] Last Admin: 06/08/23 16:32 Dose: 40 mg Glucose (Glucose Gel 15 Gm Gel..Gram.) 15 gm PO Q15M PRN; Protocol PRN Reason: per Hypoglycemia Standing Ord. Guaifenesin (Guaifenesin 200 Mg/10 Ml 10 Ml Liquid) 10 ml PO Q4H PRN PRN Reason: Cough Last Admin: 06/03/23 00:16 Dose: 10 ml Guaifenesin/Dextromethorphan (Guaifenesin Dm 100/10/5 Ml 5 Ml Syrup) 5 ml PO Q4H PRN PRN Reason: Cough Insulin Glargine (Insulin Glargine,Hum.Rec.Anlog 100 Unit/Ml 10 Ml Vial) 10 unit SUBCUT DAILY [facility] Last Admin: 06/09/23 08:11 Dose: 10 unit Insulin Human Lispro (Insulin Lispro 100 Unit/Ml 3 Ml Vial) 0 unit SUBCUT QIDACHS [facility]; Protocol Last Admin: 06/09/23 08:04 Dose: 2 unit Melatonin (Melatonin 3 Mg Tablet) 6 mg PO BEDTIME [facility] Last Admin: 06/08/23 20:28 Dose: 6 mg Nicotine Polacrilex (Nicotine Polacrilex Lozenge 2 Mg Lozenge) 2 mg BUCCAL Q1H PRN PRN Reason: Nicotine Cravings Nystatin (Nystatin Cream 15 Gm Tube) 1 appl TOPICAL TID [facility]; Protocol Last Admin: 06/09/23 08:07 Dose: 1 appl Olanzapine (Olanzapine 2.5 Mg Tablet) 2.5 mg PO Q8H PRN PRN Reason: agitation/delirium Last Admin: 06/07/23 21:02 Dose: 2.5 mg Ondansetron HCl (Ondansetron Hcl 4 Mg/2 Ml Vial) 4 mg IVPUSH Q8H PRN PRN Reason: Nausea and Vomiting Prednisone (Prednisone 10 Mg Tablet) 30 mg PO DAILY [facility]; Taper Stop: 06/14/23 08:59 Last Admin: 06/09/23 08:03 Dose: 30 mg Sodium Chloride (0.9 % Sodium Chloride Flush 3 Ml Syringe) 3 ml IVFLUSH QSHIFT [facility] Last Admin: 06/09/23 08:04 Dose: 3 ml Allergies Allergies Allergy/AdvReac Type Severity Reaction Status Date / Time No Known Allergies Allergy Mild NKA Verified 06/01/23 12:43 Assessment & Plan Assessment & Plan (1) Acute delirium: Status: Acute Code(s): R41.0 - Disorientation, unspecified Plan Based on my evaluation of her and my knowledge of her in the past I do not see her as being in danger of self-harm and I do not feel she needs to be on a one-to-one level of observation at this time. No further recommendations at this time. Thank you for the consultation Total time managing care of this patient today _25___ minutes. Patient educated on: diagnosis
--- NOTE | 2023-06-09 09:42 | HO.PM.IMPN ---
Subjective Subjective Date of Service: 06/09/23 Interval History: denies SI minimal cough no fever no facial or arm weakness Review of Systems Review of Systems: Yes all other systems are reviewed and are negative Physical Exam Vital Signs: Vital Signs: Last Vital Signs Temp 97.3 F 06/09/23 08:00 Pulse 85 06/09/23 08:00 Resp 18 06/09/23 08:00 BP 148/65 H 06/09/23 08:00 Pulse Ox 91 L 06/09/23 08:00 O2 Del Method [place] Nasal C annula 06/09/23 08:00 O2 Flow Rate 3 06/09/23 08:00 Oxygen Flow Rate 4 06/01/23 12:34 BMI result Body Mass Index 22.2 Gen: in no acute distress HEENT: sclera anicteric, moist mucus membranes Neck: supple Lungs: diminished bilaterally Heart: regular rate and rhythm, no murmurs Abd: soft, non-tender, non-distended Ext: no edema Skin: warm/well-perfused Neuro: alert, awake, oriented, no pronator drift, normal strength in all 4 extremities Psych: approrpiate affect Objective Data Active Medications Acetaminophen (Acetaminophen 325 Mg Tablet) 650 mg PO Q6H PRN PRN Reason: Pain, Mild (Pain Scale 1-3) Al Hydroxide/Mg Hydroxide (Magnesium Hydrox/Alum Hydrox 30 Ml Oral.Susp) 30 ml PO Q4H PRN PRN Reason: Heartburn/Nausea Amlodipine Besylate (Amlodipine Besylate 10 Mg Tablet) 10 mg PO DAILY [facility]; Protocol Last Admin: 06/09/23 08:04 Dose: 10 mg Documented By: DIONI Aspirin (Aspirin 81 Mg Tab.Chew) 81 mg PO DAILY [facility] Last Admin: 06/09/23 08:04 Dose: 81 mg Documented By: DIONI Atorvastatin Calcium (Atorvastatin Calcium 80 Mg Tablet) 80 mg PO BEDTIME [facility] Last Admin: 06/08/23 20:28 Dose: 80 mg Documented By: SHA Dextrose (Dextrose 50 % 25 Gm/50 Ml Syringe) 25 gm IVPUSH Q15M PRN; Protocol PRN Reason: per Hypoglycemia Standing Ord. Enoxaparin Sodium (Enoxaparin Sodium 40 Mg/0.4 Ml Syringe) 40 mg SUBCUT Q24H [facility] Last Admin: 06/08/23 16:32 Dose: 40 mg Documented By: DIONI Glucose (Glucose Gel 15 Gm Gel..Gram.) 15 gm PO Q15M PRN; Protocol PRN Reason: per Hypoglycemia Standing Ord. Guaifenesin (Guaifenesin 200 Mg/10 Ml 10 Ml Liquid) 10 ml PO Q4H PRN PRN Reason: Cough Last Admin: 06/03/23 00:16 Dose: 10 ml Documented By: MANOJ Guaifenesin/Dextromethorphan (Guaifenesin Dm 100/10/5 Ml 5 Ml Syrup) 5 ml PO Q4H PRN PRN Reason: Cough Insulin Glargine (Insulin Glargine,Hum.Rec.Anlog 100 Unit/Ml 10 Ml Vial) 10 unit SUBCUT DAILY [facility] Last Admin: 06/09/23 08:11 Dose: 10 unit Documented By: DIONI Insulin Human Lispro (Insulin Lispro 100 Unit/Ml 3 Ml Vial) 0 unit SUBCUT QIDACHS [facility]; Protocol Last Admin: 06/09/23 08:04 Dose: 2 unit Documented By: DIONI Melatonin (Melatonin 3 Mg Tablet) 6 mg PO BEDTIME [facility] Last Admin: 06/08/23 20:28 Dose: 6 mg Documented By: SHA Nicotine Polacrilex (Nicotine Polacrilex Lozenge 2 Mg Lozenge) 2 mg BUCCAL Q1H PRN PRN Reason: Nicotine Cravings Nystatin (Nystatin Cream 15 Gm Tube) 1 appl TOPICAL TID [facility]; Protocol Last Admin: 06/09/23 08:07 Dose: 1 appl Documented By: DIONI Olanzapine (Olanzapine 2.5 Mg Tablet) 2.5 mg PO Q8H PRN PRN Reason: agitation/delirium Last Admin: 06/07/23 21:02 Dose: 2.5 mg Documented By: LUCIEN Ondansetron HCl (Ondansetron Hcl 4 Mg/2 Ml Vial) 4 mg IVPUSH Q8H PRN PRN Reason: Nausea and Vomiting Prednisone (Prednisone 10 Mg Tablet) 30 mg PO DAILY [facility]; Taper Stop: 06/14/23 08:59 Last Admin: 06/09/23 08:03 Dose: 30 mg Documented By: DIONI Sodium Chloride (0.9 % Sodium Chloride Flush 3 Ml Syringe) 3 ml IVFLUSH QSHIFT [facility] Last Admin: 06/09/23 08:04 Dose: 3 ml Documented By: GRAZIC Labs 06/09/23 06:40 06/09/23 06:40 Labs: Laboratory Results - last 24 hr 06/08/23 06/08/23 06/08/23 11:12 16:19 20:13 MCV MCH MCHC RDW Plt Count MPV Absolute Nucleated RBC Nucleated RBC % (auto) Anion Gap Estim Creat Clear Calc Estimated GFR POC Glucose 151 H 248 H 259 H Random Glucose Calcium Triglycerides Cholesterol LDL Cholesterol, Calc HDL Cholesterol 06/09/23 06/09/23 06:40 07:26 MCV 86.0 MCH 27.6 MCHC 32.1 RDW 13.3 Plt Count 123 L MPV 9.1 L Absolute Nucleated RBC 0.000 Nucleated RBC % (auto) 0.0 Anion Gap 15 Estim Creat Clear Calc 54.6 Estimated GFR > 60 POC Glucose 148 H Random Glucose 145 H Calcium 8.6 Triglycerides 152 H Cholesterol 186 LDL Cholesterol, Calc 108 H HDL Cholesterol [address] 06/07/23 08:30 IMPRESSION: Probable left parafalcine frontal parietal infarct, age indeterminate. Probable right occipital infarct, probably old. Findings could be better evaluated with brain MRI/MRA. Small bilateral mastoid effusions. Findings will be communicated by the [facility] Carotid Doppler Study 06/08/23 09:16 IMPRESSION: 1. RIGHT: Moderate, hemodynamically significant stenosis of the proximal right internal carotid artery corresponding to a 50-79% stenosis by velocity criteria. 2. LEFT: Minimal, non-hemodynamically significant stenosis of the proximal left internal carotid artery corresponding to a 0-49% stenosis by velocity criteria. 3. Bilateral subclavian artery stenoses. Antegrade flow in both vertebral arteries. Head/Neck CTA 06/08/23 15:00 IMPRESSION: There is an evolving infarct within the vascular territory of left anterior cerebral artery. No acute hemorrhage. There are chronic cortical infarcts within the right occipital lobe and scattered chronic small vessel ischemic changes primarily involving the periventricular white matter. No abnormal intracranial mass or enhancement. Heavily calcified atheromatous plaque causes high-grade focal narrowing at the origin of the left subclavian artery. The brachiocephalic artery is not well assessed on this examination due to patient motion and the timing of the contrast injection. Heavily calcified atheromatous plaque also involves both carotid bifurcations. There is 50% stenosis at the origin of left internal carotid artery and 20% stenosis at the origin of the right internal carotid artery. Atheromatous calcification causes at least mild irregular narrowing of the cavernous segments of both internal carotid arteries. No intracranial large vessel occlusion. This critical result was discussed with Dr Buenrostro at 3:28 PM on 06/08/2023 and it was ascertained that the content and urgency of the report was understood at the time of direct communication. Assessment and Plan (1) COPD exacerbation: Status: Acute (2) Acute hypoxic respiratory failure: Status: Acute Plan d9 77yo F with 40 pk-yr smoking hx presenting with worsening dyspnea + productive cough, found to be hypoxic and having influenza A and likely superimposed PNA found to have acute-subacute CVA though no weakness/facial droop acute-subacute L WILLIAM stroke [and chronic right parieto-occipital stroke] - Neuro consulted, on telemetry to look for atrial fibrillation, TTE tomorrow, ASA, statin. PT/OT. subclavian stenosis - ASA, statin, Vascular Surgery consultation acute hypoxic respiratory failure due to COPD exacerbation due to influenza A with superimposed PNA - completed 7d of ceftriaxone, BCx negative, trend PCT - oseltamivir d5/5 - d/c isolation precautions as has been longer than 7 days - wean steroids- prednisone 30 mg/d x2d then 20 mg/d x 2d then 10 mg/d x2d 06/08-06/14/23 - wean O2 as tolerated but will require home O2 agitated delirium/acute toxic-metabolic encephalopathy/SI superimposed on unspecified dementia - suspect steroid effect- weaning rapidly and pt's mental status is much improved. Psychiatry reconsulted. SI has resolved and sitter is no longer necessary DM2 with hyperglycemia likely due to steroids - A1c 8.9 - mary-dose lispro, added Lantus - not on any medications at home HTN - started amlodipine here, not on any medications at home tobacco abuse - NRT VTE ppx - LMWH dispo - STR recommended In my clinical judgment, the patient requires continued inpatient hospitalization for the following reasons: hypoxia, CVA workup Total time managing care of this patient today: 40 minutes. Quality Stroke Does the patient have a stroke diagnosis?: No VTE Prior VTE?: No VTE Risk Level:: Medical - moderate - high VTE Device Contraindication: Treatment Not Indicated VTE Drug Contraindication: N/A - Med Ordered
--- NOTE | 2023-06-09 10:02 | PC.NURSE ---
D/C sitter, off contact/drop precautions.
[2023-06-09 11:42] LABS: Glucose, Whole Blood 219 mg/dL (60-115)
[2023-06-09 16:25] LABS: Glucose, Whole Blood 169 mg/dL (60-115)
[2023-06-09] MEDS: Enoxaparin Sodium 40 MG/0.4 ML SYRINGE SUBCUT (17:30)
[2023-06-09 20:19] LABS: Glucose, Whole Blood 157 mg/dL (60-115)
[2023-06-09] MEDS: Atorvastatin Calcium 80 MG TABLET PO (21:04)
[2023-06-09] MEDS: Melatonin 3 MG TABLET 6 MG PO (21:04)
[2023-06-09] MEDS: guaiFENesin 200 MG/10 ML 10 ML LIQUID PO (21:15)
[2023-06-10 03:32] VITALS: BP 154/79; PULSE 74; RESP 18; TEMP 36; O2SAT 94
[2023-06-10 04:46] VITALS: PULSE 66; RESP 20; O2SAT 94
--- NOTE | 2023-06-10 04:47 | PC.NURSE ---
Pt seen agitated, upset, confused and desating on the high 80s with O2 at 3L/min via [place] oxymyzer, also noted with audible crackles and rhonchi, needs met, O2 sat went up to low 90s after care, Dr. Bolaños was notified, Albuterol neb ordered, RT made aware and came gave neb to pt.
[2023-06-10] MEDS: Albuterol Sulfate (0.083%) 2.5 MG/3 ML VIAL.NEB INHALE (04:51)
--- NOTE | 2023-06-10 07:00 | CA_ITS ---
Transthoracic Echocardiogram Patient (Last, First, Middle): Jennifer Long, Gender: Female Date of : 1945 Age: 77 Procedure Date: 06/10/2023 Procedure Type: Transthoracic Echocardiogram Location: [facility] [place] Height: 154.94 cm Weight: 53.07 kg BSA: 1.50 m2 Heart Rate: 77 bpm BP: 168 / 72 mmHg Cheese Cooker: CARMELA Referring MD: Atul Buenrostro MD Symptoms: Acute infarct of the parasagittal left frontoparie Study Quality: Adequate/w Contrast ECG Rhythm: Sinus Conclusions: - Technically limited study. - Normal left ventricular size and systolic function. There is mildly increased left ventricular wall thickness. The visually estimated ejection fraction is between 60-65%. - E/E prime ratio is between 8 and 15 consistent with indeterminate filling pressures. - Normal right ventricular cavity size and systolic function. Findings Procedure Information Contrast agent, definity, is being given per protocol without apparent complications. Left Ventricle Normal left ventricular size and systolic function. There is mildly increased left ventricular wall thickness. The visually estimated ejection fraction is between 60-65%. Abnormal diastolic function is noted. Spectral Doppler is indicative of an impaired relaxation filling pattern. E/E prime ratio is between 8 and 15 consistent with indeterminate filling pressures. Right Ventricle Normal right ventricular cavity size and systolic function. Atria The left atrium is normal in size. Aortic Valve The aortic valve was not well visualized. There is no aortic valve stenosis. There is no aortic valve regurgitation. Mitral Valve The mitral valve appears normal. There is no mitral valve regurgitation. There is no mitral valve stenosis. Pulmonic Valve The pulmonic valve was not well visualized. Tricuspid Valve Likely normal tricuspid valve structure and function. Tricuspid regurgitation envelope is inadequate for calculation of right ventricular systolic pressure. Great Vessels All visible segments of the aorta are normal in size. The pulmonary artery was not well visualized. Venous The inferior vena cava is normal in size and collapses greater than 50% with inspiration. Pericardium/Pleural There is no evidence of pericardial effusion. Prior Study Comparison No prior study available for comparison. Measurements 2D Linear Measurements IVSd: 1.05 0.6-0.9/0.6-1.0 cm LVIDd: 5.30 3.9-5.3/4.2-5.9 cm LVIDd Index: 3.53 2.4-3.2/2.2-3.1 cm/m2 LVIDs: 3.34 2.0-3.6 cm LVPWd: 0.90 0.7-1.1 cm LA Diam: 3.10 2.7-3.8/3.0-4.0 cm LAIDs Index: 2.07 1.5-2.3 cm/m2 LV Mass: 241.00 67-162/88-224 g LV Mass Index: 160.66 43-95/49-115 g/m2 LVOT Diam: 1.70 3.0+(-)1.3 cm 2D Systolic Function EF 4C: 40.90 >55% EF 2C: 62.40 >55% EF BiP: 53.10 >55% Mitral Valve MV Pk E: 0.69 MV PK A: 1.10 MV Decel Time: 261.00 E/A: 0.60 E'Lateral: 5.87 E'Medial: 5.66 E/E' Med: 12.20 E/E' Lat: 11.70 PHT: 77.00 MVA PHT: 2.86 Decel Wood: 2.63 Aortic Valve AoV Pk Pedro: 1.33 AoV Mn Pedro: 0.98 AoV VTI: 0.26 AoV Pk Grad: 7.00 Aov Mn Grad: 4.00 DANA Cont.VTI: 1.48 LVOT LVOT Pk Pedro: 0.87 LVOT Mn Pedro: 0.65 LVOT VTI: 0.17 LVOT Pk Grad: 3.00 LVOT Mn Grad: 2.00 LVOT Diam: 1.70 LVOT Area: 2.27 Diastolic Function MV Pk E: 0.69 MV Pk A: 1.10 E/A: 0.60 E'Medial: 5.66 E/E' Med: 12.20 E' Laterial: 5.87 E/E' Lat: 11.70 Right Ventricle TAPSE (mm): 15.70 TVS' Pedro: 7.94 Tricuspid Valve RA Press: 3.00 Great Vessels Aorta Sinus of Valsalva: 3.20 2.0-3.5 cm Ao Asc: 3.00 2.1-3.4 cm Pulmonary Valve PV Pk Pedro: 0.98 Peak PV Grad: 4.00 Updated in Other Vendor System with Status of Final Terrell Black MD electronically signed on 06/10/2023 2:23:40 PM with status of Final
[2023-06-10 07:13] VITALS: BP 168/72; PULSE 84; RESP 16; TEMP 36.5; O2SAT 94
[2023-06-10 07:25] LABS: Glucose, Whole Blood 104 mg/dL (60-115)
[2023-06-10 07:51] VITALS: BP 135/70
[2023-06-10] MEDS: 0.9 % Sodium Chloride Flush 3 ML SYRINGE IVFLUSH ×2 (09:43→17:36)
--- NOTE | 2023-06-10 10:31 | PM.CNGS ---
History of Present Illness Consult details Consult date: 06/10/23 Reason for consult: other ( carotid disease) Narrative: very complex 77-year-old female who actually presented to the hospital for shortness of breath and generalized weakness. She was worked up for her shortness of breath and eventually discovered to have influenza A. She during her hospital 0 visit was noted to have periods of waxing and waning of delirium. She was subsequently worked up and it was noted to have will was believed to be old infarcts. Subsequent carotid Doppler demonstrated carotid stenosis and a CT angiogram of the carotids was then obtained. She does go through her are periods of confusion. Upon direct discussion with her with niece at bedside she denies any lateralizing signs or symptoms no weakness in an arm or leg. She also denied any speech disturbances or visual field deficits. She now presents to us for vascular evaluation. Review of Systems Review of Systems: Yes all other systems are reviewed and are negative Constitutional: Constitutional: Reports no additional constitutional complaints ENT: Reports Normal hearing present Cardiovascular: Cardiovascular: Denies chest pain, Denies chest pain at rest, Denies chest pain with activity and Denies pedal edema Respiratory: Respiratory: Denies cough Gastrointestinal: Gastrointestinal: Denies abdominal pain Musculoskeletal: Musculoskeletal: Denies abnormal gait, Denies muscle cramps and Denies radiating pain into limb Integumentary/Breasts: Skin/Breast: Denies skin ulcer and Denies wounds Neurologic: Reports Normal hearing present and Denies abnormal gait Psychiatric: Psychiatric: Reports no additional psychiatric complaints [facility] Social History Social History Household Members: Family and Children Housing: House Comment: 1:1 sitter for recent SI per report Patient Tobacco Use Status: Current everyday Tobacco user Tobacco use type: Cigarette Cigarette Packs Per Day: 0.5 Cigarettes Per Day: 10.0 Smoked in Last 30 Days: Yes Use of substances other than those prescribed or required for medical reasons: No Currently Displaying Signs/Symptoms of Drug Intoxication Withdrawal: No Advance Directives: No Advance Directives Information Provided: Yes Do you have thoughts of harming others: None Do you have a plan to hurt others: No Plan Recently lost weight without trying: Unsure Nutrition Risks: Acute nausea or vomiting x1 week Patient : No service: No Meds Allergies Allergy/AdvReac Type Severity Reaction Status Date / Time No Known Allergies Allergy Mild NKA Verified 06/01/23 12:43 Active Medications: Current Medications Acetaminophen (Acetaminophen 325 Mg Tablet) 650 mg PO Q6H PRN PRN Reason: Pain, Mild (Pain Scale 1-3) Al Hydroxide/Mg Hydroxide (Magnesium Hydrox/Alum Hydrox 30 Ml Oral.Susp) 30 ml PO Q4H PRN PRN Reason: Heartburn/Nausea Albuterol Sulfate (Albuterol Sulfate (0.083%) 2.5 Mg/3 Ml Vial.Neb) 2.5 mg INHALE Q4H PRN PRN Reason: Shortness of Breath/Wheezing Last Admin: 06/10/23 04:51 Dose: 2.5 mg Amlodipine Besylate (Amlodipine Besylate 10 Mg Tablet) 10 mg PO DAILY [facility]; Protocol Last Admin: 06/09/23 08:04 Dose: 10 mg Aspirin (Aspirin 81 Mg Tab.Chew) 81 mg PO DAILY [facility] Last Admin: 06/09/23 08:04 Dose: 81 mg Atorvastatin Calcium (Atorvastatin Calcium 80 Mg Tablet) 80 mg PO BEDTIME [facility] Last Admin: 06/09/23 21:04 Dose: 80 mg Dextrose (Dextrose 50 % 25 Gm/50 Ml Syringe) 25 gm IVPUSH Q15M PRN; Protocol PRN Reason: per Hypoglycemia Standing Ord. Enoxaparin Sodium (Enoxaparin Sodium 40 Mg/0.4 Ml Syringe) 40 mg SUBCUT Q24H [facility] Last Admin: 06/09/23 17:30 Dose: 40 mg Glucose (Glucose Gel 15 Gm Gel..Gram.) 15 gm PO Q15M PRN; Protocol PRN Reason: per Hypoglycemia Standing Ord. Guaifenesin (Guaifenesin 200 Mg/10 Ml 10 Ml Liquid) 10 ml PO Q4H PRN PRN Reason: Cough Last Admin: 06/09/23 21:15 Dose: 10 ml Guaifenesin/Dextromethorphan (Guaifenesin Dm 100/10/5 Ml 5 Ml Syrup) 5 ml PO Q4H PRN PRN Reason: Cough Insulin Glargine (Insulin Glargine,Hum.Rec.Anlog 100 Unit/Ml 10 Ml Vial) 10 unit SUBCUT DAILY [facility] Last Admin: 06/09/23 08:11 Dose: 10 unit Insulin Human Lispro (Insulin Lispro 100 Unit/Ml 3 Ml Vial) 0 unit SUBCUT QIDACHS [facility]; Protocol Last Admin: 06/10/23 07:30 Dose: Not Given Melatonin (Melatonin 3 Mg Tablet) 6 mg PO BEDTIME [facility] Last Admin: 06/09/23 21:04 Dose: 6 mg Nicotine Polacrilex (Nicotine Polacrilex Lozenge 2 Mg Lozenge) 2 mg BUCCAL Q1H PRN PRN Reason: Nicotine Cravings Nystatin (Nystatin Cream 15 Gm Tube) 1 appl TOPICAL TID [facility]; Protocol Last Admin: 06/09/23 21:05 Dose: 1 appl Olanzapine (Olanzapine 2.5 Mg Tablet) 2.5 mg PO Q8H PRN PRN Reason: agitation/delirium Last Admin: 06/07/23 21:02 Dose: 2.5 mg Ondansetron HCl (Ondansetron Hcl 4 Mg/2 Ml Vial) 4 mg IVPUSH Q8H PRN PRN Reason: Nausea and Vomiting Prednisone (Prednisone 10 Mg Tablet) 20 mg PO DAILY [facility]; Taper Stop: 06/14/23 08:59 Last Admin: 06/09/23 08:03 Dose: 30 mg Sodium Chloride (0.9 % Sodium Chloride Flush 3 Ml Syringe) 3 ml IVFLUSH QSHIFT [facility] Last Admin: 06/10/23 09:43 Dose: 3 ml Home Medications Medication Instructions Recorded Confirmed Last Taken Type No Known Home Meds 06/01/23 06/01/23 Unknown History Physical Exam Vital Signs: Vital Signs: Last Vital Signs Temp 97.7 F 06/10/23 07:13 Pulse 84 06/10/23 07:13 Resp 16 06/10/23 07:13 BP 135/70 06/10/23 07:51 Pulse Ox 94 06/10/23 07:13 O2 Del Method [place] Nasal C annula 06/10/23 07:13 O2 Flow Rate 3 06/10/23 07:13 Oxygen Flow Rate 4 06/01/23 12:34 BMI result Body Mass Index 22.2 Const: Other: Shortness of breath requiring oxygen General: cooperative, healthy appearing and comfortable Orientation/consciousness: oriented to person, oriented to place and oriented to time HEENT: Head: Yes normal to inspection Neck: Neck: Yes normal visual inspection Carotids: no bruits Chest: Chest palpation & inspection: normal inspection of the chest Resp: Effort & Inspection: able to speak in complete sentences Auscultation: wheezes and diminished lung sounds Cardio: Rate: regular rate Rhythm: regular rhythm Heart sounds: S1 normal heart sound present and S2 normal heart sound present Bruits: no carotid bruits GI: Inspection: Yes normal to inspection Skin: Wounds: no wounds Hair: normal Neuro: General: oriented to person, oriented to place and oriented to time Cranial nerves: Yes CN's II-XII intact bilaterally and Yes Normal hearing present Cognition (Neuro): normal cognition Motor exam (neuro): 5/5 motor strength present throughout Extrem: Other: venous exam: No significant superficial varicosities or spider telangiectasias, minimal edema General: No clubbing, No cyanosis and No edema Psych: Appearance: grossly normal Mental Status: mental status grossly normal Speech and movement: Normal speech and movement present Results Labs 06/09/23 06:40 06/09/23 06:40 Labs: Abnormal lab results 06/09/23 06/09/23 06/09/23 Range/Units 11:28 16:09 20:12 POC Glucose 219 H 169 H 157 H (60-115) mg/dL Urine 06/01/23 Range/Units 18:37 Urine Color Yellow Urine Appearance Clear Urine pH 5.5 (5.0-9.0) Ur Specific [place] 1.025 (1.005-1.025) Urine Protein 100 (2+) H (Neg-Trace) mg/dL Urine Glucose (UA) >=1000 H (Negative) mg/dL All other labs normal. Imaging Additional studies: CT angio of the carotids were reviewed demonstrating left-sided carotid stenosis at 50% and right-side only a 20%. Correlation was made with ultrasound and does match up. Written report and images were reviewed. Assessment and Plan (1) Carotid stenosis, bilateral: Status: Acute Plan in short patient does have carotid stenosis left more so than right. I do not believe that this is the etiology of her issues at the current time. Would continue medical workup for her COPD and her general delirium which does appear to be improving. She can follow up with me as an outpatient. I did spend a significant time explaining this to the patient and the niece who was quite agitated about her overall hospital stay. They did demonstrate an understanding and was accepting my plan for outpatient follow-up. We will peripherally follow with you. Thank you for allowing us to assist in her care. If there are questions or concerns please do not hesitate to contact us. Procedures Date of Service Date of Service: 06/10/23
[2023-06-10 11:12] LABS: Glucose, Whole Blood 252 mg/dL (60-115)
[2023-06-10 12:01] VITALS: BP 150/80; PULSE 88; RESP 20; TEMP 36.3; O2SAT 92
[2023-06-10] MEDS: Insulin Lispro 100 UNIT/ML 3 ML VIAL SUBCUT ×2 (12:20→17:36)
--- NOTE | 2023-06-10 13:21 | MHC.CM.PN ---
Addendum entered by Jessica Oconnor 06/10/23 14:58: INSURANCE AUTH HAS BEEN OBTAINED BY [employer]. HCP/GRANDDAUGHTER NAOMI WAS UPDATED VIA TELEPHONE. SHE IS PLEASED WITH THE PLAN. S TRANSPORT SET UP FOR 7 PM VIA [facility]. MADE AWARE TO FAX [facility] TO [phone]. Original Note: EMR REVIEWED. CM CONTINUES TO AWAIT INSURANCE AUTH FROM [employer]. CM CONFIRMED WITH PT'S HCP NAOMI REGARDING PLAN FOR STR. HCP IS AGREEABLE TO THIS. CM WILL CONTINUE TO AWAIT AUTH FOR TRANSFER.
--- NOTE | 2023-06-10 14:15 | HO.PM.IMPN ---
Subjective Subjective Date of Service: 06/10/23 Interval History: no focal weakness minimal cough no dyspnea still on O2 Review of Systems Review of Systems: Yes all other systems are reviewed and are negative Physical Exam Vital Signs: Vital Signs: Last Vital Signs Temp 97.4 F 06/10/23 12:01 Pulse 88 06/10/23 12:01 Resp 20 06/10/23 12:01 BP 150/80 H 06/10/23 12:01 Pulse Ox 92 06/10/23 12:01 O2 Del Method [place] Nasal C annula 06/10/23 12:01 O2 Flow Rate 3 06/10/23 12:01 Oxygen Flow Rate 4 06/01/23 12:34 BMI result Body Mass Index 22.2 Gen: in no acute distress HEENT: sclera anicteric, moist mucus membranes Neck: supple Lungs: diminished bilaterally Heart: regular rate and rhythm, no murmurs Abd: soft, non-tender, non-distended Ext: no edema Skin: warm/well-perfused Neuro: alert, awake, oriented, no facial droop, o pronator drift, normal strength in all 4 extremities Psych: approrpiate affect Objective Data Active Medications Acetaminophen (Acetaminophen 325 Mg Tablet) 650 mg PO Q6H PRN PRN Reason: Pain, Mild (Pain Scale 1-3) Al Hydroxide/Mg Hydroxide (Magnesium Hydrox/Alum Hydrox 30 Ml Oral.Susp) 30 ml PO Q4H PRN PRN Reason: Heartburn/Nausea Albuterol Sulfate (Albuterol Sulfate (0.083%) 2.5 Mg/3 Ml Vial.Neb) 2.5 mg INHALE Q4H PRN PRN Reason: Shortness of Breath/Wheezing Last Admin: 06/10/23 04:51 Dose: 2.5 mg Documented By: TANVIR Amlodipine Besylate (Amlodipine Besylate 10 Mg Tablet) 10 mg PO DAILY [facility]; Protocol Last Admin: 06/10/23 10:48 Dose: Not Given Documented By: STEPHANIE Non-Admin Reason: Patient Refused Aspirin (Aspirin 81 Mg Tab.Chew) 81 mg PO DAILY [facility] Last Admin: 06/10/23 10:48 Dose: Not Given Documented By: STEPHANIE Non-Admin Reason: Patient Refused Atorvastatin Calcium (Atorvastatin Calcium 80 Mg Tablet) 80 mg PO BEDTIME [facility] Last Admin: 06/09/23 21:04 Dose: 80 mg Documented By: MARY Dextrose (Dextrose 50 % 25 Gm/50 Ml Syringe) 25 gm IVPUSH Q15M PRN; Protocol PRN Reason: per Hypoglycemia Standing Ord. Enoxaparin Sodium (Enoxaparin Sodium 40 Mg/0.4 Ml Syringe) 40 mg SUBCUT Q24H [facility] Last Admin: 06/09/23 17:30 Dose: 40 mg Documented By: DIONI Glucose (Glucose Gel 15 Gm Gel..Gram.) 15 gm PO Q15M PRN; Protocol PRN Reason: per Hypoglycemia Standing Ord. Guaifenesin (Guaifenesin 200 Mg/10 Ml 10 Ml Liquid) 10 ml PO Q4H PRN PRN Reason: Cough Last Admin: 06/09/23 21:15 Dose: 10 ml Documented By: MARY Guaifenesin/Dextromethorphan (Guaifenesin Dm 100/10/5 Ml 5 Ml Syrup) 5 ml PO Q4H PRN PRN Reason: Cough Insulin Glargine (Insulin Glargine,Hum.Rec.Anlog 100 Unit/Ml 10 Ml Vial) 10 unit SUBCUT DAILY [facility] Last Admin: 06/10/23 10:48 Dose: Not Given Documented By: STEPHANIE Non-Admin Reason: Patient Refused Insulin Human Lispro (Insulin Lispro 100 Unit/Ml 3 Ml Vial) 0 unit SUBCUT QIDACHS [facility]; Protocol Last Admin: 06/10/23 12:20 Dose: 8 unit Documented By: STEPHANIE Melatonin (Melatonin 3 Mg Tablet) 6 mg PO BEDTIME [facility] Last Admin: 06/09/23 21:04 Dose: 6 mg Documented By: MARY Nicotine Polacrilex (Nicotine Polacrilex Lozenge 2 Mg Lozenge) 2 mg BUCCAL Q1H PRN PRN Reason: Nicotine Cravings Nystatin (Nystatin Cream 15 Gm Tube) 1 appl TOPICAL TID [facility]; Protocol Last Admin: 06/10/23 10:48 Dose: Not Given Documented By: STEPHANIE Non-Admin Reason: Patient Refused Olanzapine (Olanzapine 2.5 Mg Tablet) 2.5 mg PO Q8H PRN PRN Reason: agitation/delirium Last Admin: 06/07/23 21:02 Dose: 2.5 mg Documented By: HO.REYESAN Ondansetron HCl (Ondansetron Hcl 4 Mg/2 Ml Vial) 4 mg IVPUSH Q8H PRN PRN Reason: Nausea and Vomiting Prednisone (Prednisone 10 Mg Tablet) 20 mg PO DAILY [facility]; Taper Stop: 06/14/23 08:59 Last Admin: 06/10/23 10:49 Dose: Not Given Documented By: STEPHANIE Non-Admin Reason: Patient Refused Sodium Chloride (0.9 % Sodium Chloride Flush 3 Ml Syringe) 3 ml IVFLUSH QSHIFT DIANA Last Admin: 06/10/23 09:43 Dose: 3 ml Documented By: STEPHANIE Labs 06/09/23 06:40 06/09/23 06:40 Labs: Laboratory Results - last 24 hr 06/09/23 06/09/23 06/10/23 16:09 20:12 07:10 POC Glucose 169 H 157 H 104 06/10/23 11:04 POC Glucose 252 H Assessment and Plan (1) COPD exacerbation: Status: Acute (2) Acute hypoxic respiratory failure: Status: Acute Plan d10 77yo F with 40 pk-yr smoking hx presenting with worsening dyspnea + productive cough, found to be hypoxic and having influenza A and likely superimposed PNA found to have acute-subacute CVA though no weakness/facial droop acute-subacute L WILLIAM stroke [and chronic right parieto-occipital stroke] - Neuro consulted, no arrhythmias on telemetry, TTE pending, ASA, statin. PT/OT -> STR recommended subclavian stenosis - ASA, statin, Vascular Surgery consulted, outpt follow-up acute hypoxic respiratory failure due to COPD exacerbation due to influenza A with superimposed PNA - completed 7d of ceftriaxone, BCx negative, trend PCT - oseltamivir d5/5 - d/c'ed isolation precautions as has been longer than 7 days - wean steroids- prednisone 30 mg/d x2d then 20 mg/d x 2d then 10 mg/d x2d 06/08-06/14/23 - wean O2 as tolerated but will require O2 3L via reservoir NC upon discharge agitated delirium/acute toxic-metabolic encephalopathy/SI superimposed on unspecified dementia - suspect steroid effect- weaning rapidly and pt's mental status is much improved. Psychiatry reconsulted. SI has resolved and sitter is no longer necessary so it was disconitnued 12/10/23 DM2 with hyperglycemia likely due to steroids - A1c 8.9 - mary-dose lispro, added Lantus - not on any medications at home HTN - started amlodipine here, not on any medications at home tobacco abuse - NRT VTE ppx - LMWH dispo - STR recommended In my clinical judgment, the patient requires continued inpatient hospitalization for the following reasons: CVA workup, planning Total time managing care of this patient today: 35 minutes. Quality Stroke Does the patient have a stroke diagnosis?: No VTE Prior VTE?: No VTE Risk Level:: Medical - moderate - high VTE Device Contraindication: Treatment Not Indicated VTE Drug Contraindication: N/A - Med Ordered
[2023-06-10 15:20] VITALS: BP 173/74; PULSE 88; RESP 20; TEMP 36.3; O2SAT 92
--- NOTE | 2023-06-10 15:25 | PM.DS ---
DS: Providers Provider Date of Service: 06/10/23 Date of admission: 06/01/23 17:24 Date of discharge: 06/10/23 Primary care physician: None Physician Consults: 06/05/23 12:42 Consult to Wound Care Routine Reason for consultation: angry red folds under abd and breasts 06/06/23 08:08 Consult to Psychiatry Routine Consulting Provider: Psych Covering Reason for consultation: SI, agitated delirium 06/07/23 14:15 Consult to Care Team Stat Comment: Reason for consultation: SI sitter- cleared? 06/07/23 14:45 Consult to Psychiatry Routine Consulting Provider: Psych Covering Reason for consultation: follow up SI- needs sitter or not? planning to go to STR 06/08/23 07:42 Consult to Neurology Routine Consulting Provider: [facility] Reason for consultation: Acute infarct of the parasagittal left frontoparietal lobes ( 06/08/23 14:09 Consult to Psychiatry Routine Consulting Provider: Psych Covering Reason for consultation: Follow up consult. Expressed SI and has sitter. Steroid effect? 06/09/23 09:47 Consult to Vascular Surgery Routine Consulting Provider: [facility] Vascular Services Reason for consultation: high-grade subclavian stenosis with CVA DS: Diagnosis Discharge Diagnosis (1) COPD exacerbation: Status: Acute (2) Acute hypoxic respiratory failure: Status: Acute (3) Influenza A: Status: Acute (4) Pneumonia: Status: Acute (5) Steroid-induced psychosis with complication: Status: Acute (6) Sepsis: Status: Acute (7) Toxic metabolic encephalopathy: Status: Acute (8) Carotid stenosis, bilateral: Status: Acute (9) Subclavian arterial stenosis: Status: Acute (10) Ischemic stroke: Status: Acute (11) Type 2 diabetes mellitus with hyperglycemia: Status: Acute (12) Steroid-induced hyperglycemia: Status: Acute (13) Essential hypertension: Status: Acute DS: Summary Hospital Course Hospital Course: from admission H+P by hospitalist Nishant Alamo DO, 06/01/23: 77-year-old with unknown past medical history presenting to the emergency department with complaint of worsening shortness of breath as well as productive cough for the past week. States cough is productive of yellow sputum. Denies fevers. Denies chest pain or palpitations. Denies lightheadedness or dizziness, syncope. Denies any abdominal pain, nausea, vomiting, diarrhea or constipation. Denies recent lower extremity edema, calf pain or swelling. Found to be hypoxic on EMS arrival, improved with nebulizer treatment. Granddaughter reports other family members have been sick with similar symptoms. Influenza A positive in ER 77yo F with 40 pk-yr smoking hx presenting with worsening dyspnea + productive cough, found to be hypoxic due to COPD exacerabation from influenza A and likely superimposed PNA. Hospital course complicated by encephalopathy and acute ischemic CVA. Hospital course by problem: found to have acute-subacute CVA though no weakness/facial droop acute hypoxic respiratory failure due to COPD exacerbation due to influenza A with superimposed PNA - completed 7d of ceftriaxone, BCx negative, PCT decreased appropriately - completed 5d of oseltamivir - completed 7d of droplet isolation - treated with steroid taper; 3 days remain: 20 mg/d on 06/11 then 10 mg/d 06/12-06/13, then stop - still requires oxygen, 3L via reservoir nasal cannula, and should be evaluated for home oxygen after completing rehabilitation acute toxic-metabolic encephalopathy superimposed on unspecified dementia - had agitation and suicidal ideation; Psychiatry consulted and this was thought to be adverse steroid effect. A sitter was placed. Steroids were tapered rapidly and her mental status improved markedly. Sitter was discontinued. acute-subacute L WILLIAM stroke [and chronic right parieto-occipital stroke] carotid and subclavian stenosis - found during workup for altered mental status on 06/07/23, noted on CT and confirmed on MRI. Despite the stroke, no facial droop, langauge deficit, or extremity weakness. - no arrhythmias on telemetry. TTE 06/10/23 showed: - Technically limited study. - Normal left ventricular size and systolic function. There is mildly increased left ventricular wall thickness. The visually estimated ejection fraction is between 60-65%. - E/E prime ratio is between 8 and 15 consistent with indeterminate filling pressures. - Normal right ventricular cavity size and systolic function. CTA of the head and neck showed carotid and subclavian stenosis. Vascular Surgery was consulted and recommended medical management. Neurology was consulted and recommended DAPT with aspirin and clopidogrel along with high-intensity statin. She should have outpatient Holter monitoring to look for occult atrial fibrillation to see if she may require full anticoagulation, as the neurologist suspected embolic source. She was prescribed NRT for smoking cessation and should follow a Mediterranean diet. DM2 with hyperglycemia likely due to steroids - A1c 8.9. Treated with basal-bolus insulin. Eventually could be transitioned to oral hypoglycemics at rehabilitation once off steroids. HTN - Started amlodipine 10 mg/d. She was discharged to [facility] for [facility]-term rehabilitation. She has an appointment with her new PCP at [facility] in [place] on 06/18/23. Time Attestation Discharge coordination time: Greater than 30 minutes Quality: Safe Use of Opioids Does Pt have an Active Cancer Diagnosis on the Problem List?: No Quality: Stroke Does the patient have a stroke diagnosis?: No Physical Exam Vital Signs: Vital Signs: Last Vital Signs Temp 97.4 F 06/10/23 15:20 Pulse 88 06/10/23 15:20 Resp 20 06/10/23 15:20 BP 173/74 H 06/10/23 15:20 Pulse Ox 92 06/10/23 15:20 O2 Del Method [place] Nasal C annula 06/10/23 15:20 O2 Flow Rate 3 06/10/23 12:01 Oxygen Flow Rate 4 06/01/23 12:34 BMI result Body Mass Index 22.2 Gen: in no acute distress HEENT: sclera anicteric, moist mucus membranes Neck: supple Lungs: diminished bilaterally Heart: regular rate and rhythm, no murmurs Abd: soft, non-tender, non-distended Ext: no edema Skin: warm/well-perfused Neuro: alert, awake, oriented, no facial droop, no pronator drift, normal strength in all 4 extremities Psych: appropriate affect DS: Data Data Completed and Pending Completed studies during hospitalization [Text1]: Laboratory Results WBC 13.5 X10*3/uL (4.8-10.8) H 06/09/23 06:40 RBC 4.93 X10*6/uL (4.20-5.50) 06/09/23 06:40 Hgb 13.6 g/dl (12.0-16.0) 06/09/23 06:40 Hct 42.4 % (37.0-47.0) 06/09/23 06:40 MCV 86.0 fL (80.0-98.0) 06/09/23 06:40 MCH 27.6 pg (27.0-33.0) 06/09/23 06:40 MCHC 32.1 g/dl (31.0-35.0) 06/09/23 06:40 RDW 13.3 % (11.0-16.0) 06/09/23 06:40 Plt Count 123 X10*3/uL (160-400) L 06/09/23 06:40 MPV 9.1 fL (9.4-12.3) L 06/09/23 06:40 Immature Gran % (Auto) 0.8 % (0.0-0.4) H 06/05/23 06:55 Neut % (Auto) 88.4 % (45-73) H 06/05/23 06:55 Lymph % (Auto) 7.9 % (20-40) L 06/05/23 06:55 [place] % (Auto) 2.8 % (2-11) 06/05/23 06:55 Eos % (Auto) 0.0 % (0-4) 06/05/23 06:55 Baso % (Auto) 0.1 % (0-2) 06/05/23 06:55 Lymph # (Auto) 0.9 X10*3/uL (1.2-4.9) L 06/05/23 06:55 [place] # (Auto) 0.3 X10*3/uL (0.1-1.2) 06/05/23 06:55 Eos # (Auto) 0.0 X10*3/uL (0.0-0.4) 06/05/23 06:55 Baso # (Auto) 0.0 X10*3/uL (0.0-0.2) 06/05/23 06:55 Abs Immat Gran (auto) 0.10 X10*3/uL (0.00-0.03) H 06/05/23 06:55 Absolute Neuts (auto) 10.6 x10*3/uL (2.0-8.3) H 06/05/23 06:55 Absolute Nucleated RBC 0.000 X10*3/uL (0.0-0.012) 06/09/23 06:40 Nucleated RBC % (auto) 0.0 /100WBC (0.0-0.2) 06/09/23 06:40 Neutrophils % (Manual) 87 % (45-73) H 06/03/23 07:12 Band Neutrophils % 11 % (3-5) H 06/03/23 07:12 Lymphocytes % (Manual) 1 % (20-40) L 06/03/23 07:12 Monocytes % (Manual) 1 % (2-11) L 06/03/23 07:12 Abs Neuts (Manual) 20.5 X10*3/uL (2.0-8.3) H 06/03/23 07:12 Lymphocytes # (Manual) 0.2 X10*3/uL (1.2-4.9) L 06/03/23 07:12 Monocytes # (Manual) 0.2 X10*3/uL (0.1-1.2) 06/03/23 07:12 Platelet Estimate NORMAL (NORMAL) 06/03/23 07:12 Plt Morphology Comment NORMAL 06/03/23 07:12 RBC Morphology NORMAL 06/03/23 07:12 Smear Tech's Comments VERIFIED 06/04/23 06:20 O2 Saturation 95.0 % 06/05/23 10:59 ABG pH at Pt Temp 7.40 (7.35-7.45) 06/05/23 10:59 ABG pCO2 at Pt Temp 46 mmHg (32-45) H 06/05/23 10:59 ABG pO2 at Pt Temp 75 mmHg (83-108) L 06/05/23 10:59 ABG HCO3 29 mmol/L (22-26) H 06/05/23 10:59 ABG Base Excess (Actual) 4.1 mmol/L 06/05/23 10:59 VBG pH 7.45 (7.32-7.43) H 06/07/23 06:16 VBG pCO2 47 mmHg 06/07/23 06:16 VBG pO2 73 mmHg 06/07/23 06:16 VBG HCO3 32 mmol/L (22-26) H 06/07/23 06:16 VBG O2 Saturation 94.0 % 06/07/23 06:16 VBG Base Excess 7.6 mmol/L 06/07/23 06:16 Sodium 144 mmol/L (135-145) 06/09/23 06:40 Potassium 3.4 mmol/L (3.3-5.1) 06/09/23 06:40 Chloride 104 mmol/L (96-108) 06/09/23 06:40 Carbon Dioxide 28 mmol/L (22-29) 06/09/23 06:40 Anion Gap 15 (12-20) 06/09/23 06:40 BUN 18 mg/dL (9-16) H 06/09/23 06:40 Creatinine 0.63 mg/dL (0.5-1.4) 06/09/23 06:40 Estim Creat Clear Calc 54.6 06/09/23 06:40 Estimated GFR > 60 06/09/23 06:40 POC Glucose 252 mg/dL (60-115) H 06/10/23 11:04 Random Glucose 145 mg/dL (60-115) H 06/09/23 06:40 Fasting Glucose 247 mg/dL (60-99) H 06/05/23 06:55 Estimat Average Glucose 209 mg/dL 06/05/23 06:55 Hemoglobin A1c % 8.9 % (<6.0) H 06/05/23 06:55 Lactic Acid 3.3 mmol/L (0.5-2.0) H* 06/01/23 13:39 Lactic Acid F/U @ 2Hr 3.8 mmol/L (0.5-2.0) H* 06/01/23 17:59 Lactic Acid F/U @ 4Hr 3.9 mmol/L (0.5-2.0) H* 06/01/23 20:22 Calcium 8.6 mg/dL (8.4-10.2) 06/09/23 06:40 Total Bilirubin 0.3 mg/dL (0.0-1.0) 06/05/23 06:55 AST 16 U/L (5-31) 06/05/23 06:55 ALT 16 U/L (0-31) 06/05/23 06:55 Alkaline Phosphatase 77 U/L (39-117) 06/05/23 06:55 Troponin I High Sens 33.7 ng/L (<3.5-17.0) H 06/01/23 17:59 Total Protein 6.0 g/dL (6.5-8.0) L 06/05/23 06:55 Albumin 3.3 g/dL (3.5-5.0) L 06/05/23 06:55 Triglycerides 152 mg/dL (<150) H 06/09/23 06:40 Cholesterol 186 mg/dL (<200) 06/09/23 06:40 LDL Cholesterol, Calc 108 mg/dL (<100) H 06/09/23 06:40 HDL Cholesterol 48 mg/dL (>40) 06/09/23 06:40 Procalcitonin 0.32 ng/mL 06/07/23 06:06 Urine Color Yellow 06/01/23 18:37 Urine Appearance Clear 06/01/23 18:37 Urine pH 5.5 (5.0-9.0) 06/01/23 18:37 Ur Specific [place] 1.025 (1.005-1.025) 06/01/23 18:37 Urine Protein 100 (2+) mg/dL (Neg-Trace) H 06/01/23 18:37 Urine Glucose (UA) >=1000 mg/dL (Negative) H 06/01/23 18:37 Urine Ketones Negative mg/dL (Negative) 06/01/23 18:37 Urine Blood Trace (Negative) 06/01/23 18:37 Urine Nitrite Negative (Negative) 06/01/23 18:37 Ur Leukocyte Esterase Negative (Negative) 06/01/23 18:37 Urine RBC 3-5 /HPF (0-2) H 06/01/23 18:37 Urine WBC 0-5 /HPF (0-5) 06/01/23 18:37 Ur Squamous Epith Cells 6-10 /HPF (0-2) 06/01/23 18:37 Urine Bacteria Trace (None Seen) 06/01/23 18:37 Hyaline Casts 0-2 /LPF (0-2) 06/01/23 18:37 Influenza Type A (PCR) POSITIVE (Negative) A 06/01/23 13:39 Influenza Type B (PCR) NEGATIVE (Negative) 06/01/23 13:39 RSV RNA Qual (PCR) NEGATIVE (Negative) 06/01/23 13:39 SARS-CoV-2 RNA (RT-PCR) NEGATIVE (Negative) 06/01/23 13:39 Impressions Chest X-Ray 06/01/23 13:57 IMPRESSION: No focal pneumonia or alveolar edema. Metallic density superimposes over the aorticopulmonary window region. Recommend inspection of the patient Head CT 06/07/23 08:30 IMPRESSION: Probable left parafalcine frontal parietal infarct, age indeterminate. Probable right occipital infarct, probably old. Findings could be better evaluated with brain MRI/MRA. Small bilateral mastoid effusions. Findings will be communicated by the [facility] housekeeping worker Brain MRI 06/07/23 15:53 IMPRESSION: 1. 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 No evidence of hemorrhagic conversion. 2. Chronic region of encephalomalacia within the right occipital lobe. Moderate underlying microangiopathy and generalized cerebral volume loss. Carotid Doppler Study 06/08/23 09:16 IMPRESSION: 1. RIGHT: Moderate, hemodynamically significant stenosis of the proximal right internal carotid artery corresponding to a 50-79% stenosis by velocity criteria. 2. LEFT: Minimal, non-hemodynamically significant stenosis of the proximal left internal carotid artery corresponding to a 0-49% stenosis by velocity criteria. 3. Bilateral subclavian artery stenoses. Antegrade flow in both vertebral arteries. Head/Neck CTA 06/08/23 15:00 IMPRESSION: There is an evolving infarct within the vascular territory of left anterior cerebral artery. No acute hemorrhage. There are chronic cortical infarcts within the right occipital lobe and scattered chronic small vessel ischemic changes primarily involving the periventricular white matter. No abnormal intracranial mass or enhancement. Heavily calcified atheromatous plaque causes high-grade focal narrowing at the origin of the left subclavian artery. The brachiocephalic artery is not well assessed on this examination due to patient motion and the timing of the contrast injection. Heavily calcified atheromatous plaque also involves both carotid bifurcations. There is 50% stenosis at the origin of left internal carotid artery and 20% stenosis at the origin of the right internal carotid artery. Atheromatous calcification causes at least mild irregular narrowing of the cavernous segments of both internal carotid arteries. No intracranial large vessel occlusion. This critical result was discussed with Dr Buenrostro at 3:28 PM on 06/08/2023 and it was ascertained that the content and urgency of the report was understood at the time of direct communication. Discharge Plan Discharge Anticipated Discharge Date/Time: 06/10/23 15:06 Patient Disposition: Xfer SNF Discharge Diagnosis: acute hypoxic respiratory failure due to COPD exacerbation due to influenza A with superimposed pneumonia acute toxic-metabolic encephalopathy due to steroids diabetes mellitus with hyperglycemia hypertension acute-subacute L WILLIAM stroke; chronic right parieto-occipital stroke carotid and subclavian stenosis Referrals: [facility] Cardiovascular Services [Provider Group] - 1 Week [facility]. Shadia Villalobos [Provider Group] - 2 Weeks Ang Child MD [Physician] - 1 Month Mika Packer MD [Physician] - 1 Month Physician,None [Primary Care Provider] - 1 Week Discharge Medications: New albuterol sulfate 90 mcg/actuation HFA aerosol inhaler 2 puff inhalation Q4-6H PRN (Reason: shortness of breath or wheezing) Qty: 8.5 0RF Rx Instructions: use with spacer device atorvastatin 80 mg Tablet 80 mg PO BEDTIME Qty: 30 0RF prednisone 10 mg Tablet See Rx Instructions .ROUTE .COMPLEX Qty: 4 0RF Taper: Prednisone 20 mg daily for 2 Days and 0 Hour 10 mg daily for 2 Days and 0 Hour Rx Instructions: 20 mg once on 06/11 then 10 mg daily on 06/12-06/13, then stop insulin glargine [Lantus U-100 Insulin] 100 unit/mL Solution 10 unit subcut DAILY Qty: 10 0RF amlodipine 10 mg Tablet 10 mg PO DAILY Qty: 30 0RF Protocol: Hold for SBP< HOLD for SBP < : 90 aspirin 81 mg Tablet,Chewable 81 mg PO DAILY Qty: 30 0RF insulin lispro [Humalog U-100 Insulin] 100 unit/mL Solution See Protocol subcut QIDACHS Qty: 10 0RF Protocol: Insulin Resistant 1st 24 hours Less than or equal to 110 ---- Give (units): 0 111 to 150 Give (units): 2 151 to 200 Give (units): 4 201 to 250 Give (units): 6 251 to 300 Give (units): 8 301 to 350 Give (units): 10 Greater than 350 Give (units): 12 Call MD if Blood Glucose > : 350 nicotine (polacrilex) 2 mg Lozenge 2 mg buccal Q1H PRN (Reason: Nicotine Cravings) Qty: 100 0RF clopidogrel 75 mg Tablet 75 mg PO DAILY Qty: 30 0RF Discharge Orders: Discharge Order (Routine); Ordered 06/10/23 Ordered By: Atul Buenrostro Diet: Diabetic diet Activity on Discharge: As tolerated Stand Alone Forms: Patient Portal Discharge page Care Plan Goals: recovery from flu/pneumonia stroke prevention Health Concerns: acute hypoxic respiratory failure due to COPD exacerbation due to influenza A with superimposed pneumonia - completed antibiotics and Tamiflu - prednisone 20 mg once on 06/11, then 10 mg daily 06/12-06/13, then stop - 3L O2 via reservoir nasal cannula acute toxic-metabolic encephalopathy due to steroids - resolved diabetes mellitus with hyperglycemia - Lantus 10 units nightly plus Humalog correction-dose hypertension - amlodipine 10 mg daily acute-subacute L WILLIAM stroke; chronic right parieto-occipital stroke carotid and subclavian stenosis - aspirin 81 mg daily PLUS clopidogrel 75 mg daily - atorvastatin 80 mg nightly - follow up with [facility] Cardiology in 1 week for Holter monitoring to look for atrial fibrillation - follow up with [facility] Neurology in 1 month [Dr Child] - follow up with Vascular Surgery in 1 month [Dr Packer] Plan of Treatment: see above Assessment: See Discharge Summary.
[2023-06-10 16:13] LABS: Glucose, Whole Blood 141 mg/dL (60-115)
[2023-06-10] MEDS: Clopidogrel Bisulfate 75 MG TABLET PO (17:36)
[2023-06-10] MEDS: Nystatin Cream 15 GM TUBE 1 APPL TOPICAL (17:36)
[2023-06-10] MEDS: Enoxaparin Sodium 40 MG/0.4 ML SYRINGE SUBCUT (17:37)
== END 2023-06-10 19:31 | disposition skilled nursing facility (03) | DRG 193 ==
LOC: HO.ED 16:34 → HO.EDOVER 17:55 → HO.IMC 18:00 → HO.S3 06-06 01:38
PROVIDERS: Registered Nurse Emergency; Admitting Provider Hospitalist; Emergency Provider Emergency Medicine; Visit Provider Family Medicine
DX: J10.00 Influenza due to other identified influenza virus with unspecified type of pneumonia (principal); G92.8 Other toxic encephalopathy; J96.01 Acute respiratory failure with hypoxia; I63.422 Cerebral infarction due to embolism of left anterior cerebral artery; J44.0 Chronic obstructive pulmonary disease with (acute) lower respiratory infection; F05 Delirium due to known physiological condition; F23 Brief psychotic disorder; R45.851 Suicidal ideations; I65.23 Occlusion and stenosis of bilateral carotid arteries; I10 Essential (primary) hypertension; T38.0X5A Adverse effect of glucocorticoids and synthetic analogues, initial encounter; F03.90 Unspecified dementia, unspecified severity, without behavioral disturbance, psychotic disturbance, mood disturbance, and anxiety; E11.65 Type 2 diabetes mellitus with hyperglycemia; I77.1 Stricture of artery; F17.210 Nicotine dependence, cigarettes, uncomplicated; Z66 Do not resuscitate; Z71.6 Tobacco abuse counseling; Z79.4 Long term (current) use of insulin; Z79.02 Long term (current) use of antithrombotics/antiplatelets; Z79.82 Long term (current) use of aspirin; Z79.899 Other long term (current) drug therapy
CPT/HCPCS: 0241U; 36415; 36600; 70450; 70496; 70498; 70551; 71045; 80048; 80053; 80061; 81001; 82803; 82947; 83036; 83605; 84145; 84484; 85007; 85025; 85027; 87040; 87086; 93005; 93306; 93880; 94640; 97110; 97162; 97166; 97530; 99285; J0360; J0456; J0696; J1650; J2060; J2930; Q9957

== ENCOUNTER → 2023-06-01 12:43 | Outpatient (BNV) | payer MEDICARE, SELFPAY | PROVIDERS: Admitting Provider Hospitalist; Emergency Provider Emergency Medicine; Visit Provider Internal Medicine Cardiovascular Disease | DX: R00.0 Tachycardia, unspecified (principal) | CPT/HCPCS: 93010 ==

== ENCOUNTER → 2023-06-01 13:04 | Outpatient (BNV) | payer MEDICARE, SELFPAY | PROVIDERS: Emergency Provider Emergency Medicine; Visit Provider Hospitalist | DX: J44.1 Chronic obstructive pulmonary disease with (acute) exacerbation (principal); J96.01 Acute respiratory failure with hypoxia; A41.9 Sepsis, unspecified organism; E11.65 Type 2 diabetes mellitus with hyperglycemia; I77.1 Stricture of artery; I63.9 Cerebral infarction, unspecified; F19.959 Other psychoactive substance use, unspecified with psychoactive substance-induced psychotic disorder, unspecified; J18.9 Pneumonia, unspecified organism; J10.1 Influenza due to other identified influenza virus with other respiratory manifestations; G92.8 Other toxic encephalopathy; I65.23 Occlusion and stenosis of bilateral carotid arteries; T38.0X5A Adverse effect of glucocorticoids and synthetic analogues, initial encounter | CPT/HCPCS: 99223; 99232; 99233; 99239 ==

== ENCOUNTER 2023-06-01 17:24 | Outpatient (BNV) | payer OTHER, SELFPAY | END 2023-06-10 07:00 | PROVIDERS: Admitting Provider Hospitalist; Emergency Provider Emergency Medicine; Visit Provider Internal Medicine Cardiovascular Disease | DX: I51.9 Heart disease, unspecified (principal) | CPT/HCPCS: 93306 ==

== ENCOUNTER → 2023-06-01 17:24 | Outpatient (BNV) | payer OTHER, SELFPAY | PROVIDERS: Admitting Provider Hospitalist; Emergency Provider Emergency Medicine; Visit Provider Psychiatry & Neurology Psychiatry | DX: R41.0 Disorientation, unspecified (principal) | CPT/HCPCS: 99231 ==

== ENCOUNTER → 2023-06-01 17:24 | Outpatient (BNV) | payer OTHER, SELFPAY | PROVIDERS: Admitting Provider Hospitalist; Emergency Provider Emergency Medicine; Visit Provider Psychiatry & Neurology Psychiatry | DX: R41.0 Disorientation, unspecified (principal); J44.1 Chronic obstructive pulmonary disease with (acute) exacerbation; J96.01 Acute respiratory failure with hypoxia | CPT/HCPCS: 99222 ==

== ENCOUNTER → 2023-06-01 17:24 | Outpatient (BNV) | payer OTHER, SELFPAY | PROVIDERS: Admitting Provider Hospitalist; Emergency Provider Emergency Medicine; Visit Provider Surgery Vascular Surgery | DX: I65.23 Occlusion and stenosis of bilateral carotid arteries (principal) | CPT/HCPCS: 99222 ==

== ENCOUNTER 2023-08-30 18:48 | Emergency (ER) | payer OTHER, SELFPAY ==
--- NOTE | ~2023-08-30 | XR_ITS ---
EXAMINATION: Right shoulder and humerus x-ray CLINICAL INFORMATION: Fall COMPARISON: None. TECHNIQUE: 4 views of the right shoulder and 2 views of the right humerus FINDINGS: There is at least 3 part right humeral surgical neck fracture with fracture of the greater tuberosity. No other fracture seen. Glenohumeral alignment is normal. Arthritis at the acromioclavicular joint. Normal elbow joint. Normal soft tissues. XR/XR shoulder RT min 2V IMPRESSION: Right humeral neck fracture.
--- NOTE | ~2023-08-30 | XR_ITS ---
EXAMINATION: Right shoulder and humerus x-ray CLINICAL INFORMATION: Fall COMPARISON: None. TECHNIQUE: 4 views of the right shoulder and 2 views of the right humerus FINDINGS: There is at least 3 part right humeral surgical neck fracture with fracture of the greater tuberosity. No other fracture seen. Glenohumeral alignment is normal. Arthritis at the acromioclavicular joint. Normal elbow joint. Normal soft tissues. XR/XR humerus RT IMPRESSION: Right humeral neck fracture.
[2023-08-30 19:00] VITALS: BP 180/90; BP 186/54; PULSE 80; PULSE 84; RESP 18; TEMP 36.8; O2SAT 98; BMI 34.4
--- NOTE | 2023-08-30 19:21 | ED.FALL ---
HPI - Fall General Chief Complaint: Fall Stated Complaint: fall at home, no head strike or loc, on thinners Time Seen by Provider: 08/30/23 18:52 Source: patient and EMS Mode of arrival: EMS Limitations: no limitations History of Present Illness HPI Narrative: Was wearing open slippers in the back, slipped and landed on her right shoulder. No head strike, no head or neck pain complaint: fall Onset (ago): minute(s) Fall from: standing Fall witnessed: yes, by family Place fall occurred: home Loss of consciousness: none Related Data Previous Rx's Medication Instructions Recorded albuterol sulfate 90 mcg/actuation 2 puff inhalation Q4-6H PRN 06/10/23 aerosol inhaler shortness of breath or wheezing #8.5 grams amlodipine 10 mg tablet 10 mg PO DAILY #30 tabs 06/10/23 aspirin 81 mg chewable tablet 81 mg PO DAILY #30 tabs 06/10/23 atorvastatin 80 mg tablet 80 mg PO BEDTIME #30 tabs 06/10/23 clopidogrel 75 mg tablet 75 mg PO DAILY #30 tabs 06/10/23 insulin glargine 100 unit/mL 10 unit (0.1 mL) subcut DAILY #10 06/10/23 subcutaneous solution (Lantus mL U-100 Insulin) insulin lispro 100 unit/mL See Protocol subcut QIDACHS #10 mL 06/10/23 subcutaneous solution (Humalog U-100 Insulin) nicotine (polacrilex) 2 mg buccal 2 mg buccal Q1H PRN Nicotine 06/10/23 lozenge Cravings #100 ea prednisone 10 mg tablet See Rx Instructions .Route 06/10/23 .COMPLEX #4 tabs oxycodone 5 mg capsule 5 mg PO Q8H PRN pain #14 caps 08/30/23 Allergies Allergy/AdvReac Type Severity Reaction Status Date / Time No Known Allergies Allergy Mild NKA Verified 08/30/23 19:00 Review of Systems Review of Systems: Yes all other systems are reviewed and are negative Neurologic: Denies Sensory deficit (Neuro) [facility] Social History Social History Household Members: Family and Children Housing: House Alcohol intake: current Alcohol intake frequency: holidays/special occasions only Comment: 1:1 sitter for recent SI per report Patient Tobacco Use Status: Current everyday Tobacco user Tobacco use type: Cigarette Cigarette Packs Per Day: 0.5 Cigarettes Per Day: 10.0 Smoked in Last 30 Days: Yes Use of substances other than those prescribed or required for medical reasons: No Advance Directives: No Advance Directives Information Provided: No service: No Physical Exam Vital Signs: Vital Signs: Last Vital Signs Temp 98.3 F 08/30/23 19:00 Pulse 84 08/30/23 19:00 Resp 18 08/30/23 19:00 BP 186/54 H 08/30/23 19:00 Pulse Ox 98 08/30/23 19:00 O2 Del Method Room Air 08/30/23 19:00 BMI result Body Mass Index 34.4 Const: Other: elderly female in pain Nutritional Appearance: average body habitus Orientation/consciousness: oriented to person and patient oriented x3 Limitations: no limitations HEENT: Head: Yes normal to inspection Ears: external ears normal General nose exam: Normal external nose present Mouth: Normal oral and palatal mucosa present and oropharynx normal Throat: Yes posterior oropharynx normal Eyes: General: appearance normal, both eyes and all related structures Neck: Other: supple Neck: Yes normal visual inspection Chest: Chest palpation & inspection: normal inspection of the chest Resp: Auscultation: clear to auscultation bilaterally Cardio: Jugular venous distension: no JVD Rate: regular rate Rhythm: regular rhythm Heart sounds: S1 normal heart sound present and S2 normal heart sound present GI: Inspection: Yes normal to inspection Palpation (GI): Soft to palpation, nontender and No hepatosplenomegaly present Auscultation: normal bowel sounds : General: Yes no CVA tenderness Back/Spine/Pelvis: Back: no CVA tenderness Skin: General skin exam: no rashes or lesions noted Neuro: General: oriented to person and patient oriented x3 Cranial nerves: Yes CN's II-XII intact bilaterally Motor exam (neuro): 5/5 motor strength present throughout Sensory Exam: No Sensory deficit (Neuro) Extrem: Other: right shoulder with swelling and pain, no wrist or elbow pain, clavicle is nontender Psych: Appearance: grossly normal Course Reevaluation(s) Reevaluation #1: patient with a humeral head fracture will place in a sling and dc home Time: 19:54 Medications Administered Discontinued Medications Generic Name Dose Route Start Last Admin Trade Name Freq PRN Reason Stop Dose Admin Oxycodone HCl 10 mg 08/30/23 19:20 08/30/23 19:42 Oxycodone Hcl Immed Release 5 Mg Tablet PO 08/30/23 19:21 10 mg ONCE ONE Administration Medical Decision Making Differential Diagnosis Differential Diagnoses: The differential diagnosis associated with the presentation includes (shoulder fracture, shoulder dislocation, scapula fracture were considered) Independent Interpretation I performed an independent interpretation of an: Plain X-Ray (humeral head fracture) Independent Historian Clinical information obtained from an independent historian. History obtained from or confirmed by: EMS Chronic Conditions Patient?s care impacted by: Diabetes Discharge Plan Discharge Clinical Impression: Closed fracture of shoulder Patient Disposition: Home, Self-Care Instructions: Arm Fracture in Adults (ED) Additional Instructions: keep sling on Prescriptions: New oxycodone 5 mg capsule 5 mg PO Q8H PRN (Reason: pain) Qty: 14 0RF Rx Instructions: Partial Fill upon patient request. No Action albuterol sulfate 90 mcg/actuation HFA aerosol inhaler 2 puff inhalation Q4-6H PRN (Reason: shortness of breath or wheezing) Qty: 8.5 0RF Rx Instructions: use with spacer device atorvastatin 80 mg Tablet 80 mg PO BEDTIME Qty: 30 0RF prednisone 10 mg Tablet See Rx Instructions .ROUTE .COMPLEX Qty: 4 0RF Taper: Prednisone 20 mg daily for 2 Days and 0 Hour 10 mg daily for 2 Days and 0 Hour Rx Instructions: 20 mg once on 06/11 then 10 mg daily on 06/12-06/13, then stop insulin glargine [Lantus U-100 Insulin] 100 unit/mL Solution 10 unit subcut DAILY Qty: 10 0RF amlodipine 10 mg Tablet 10 mg PO DAILY Qty: 30 0RF Protocol: Hold for SBP< HOLD for SBP < : 90 aspirin 81 mg Tablet,Chewable 81 mg PO DAILY Qty: 30 0RF insulin lispro [Humalog U-100 Insulin] 100 unit/mL Solution See Protocol subcut QIDACHS Qty: 10 0RF Protocol: Insulin Resistant 1st 24 hours Less than or equal to 110 ---- Give (units): 0 111 to 150 Give (units): 2 151 to 200 Give (units): 4 201 to 250 Give (units): 6 251 to 300 Give (units): 8 301 to 350 Give (units): 10 Greater than 350 Give (units): 12 Call MD if Blood Glucose > : 350 nicotine (polacrilex) 2 mg Lozenge 2 mg buccal Q1H PRN (Reason: Nicotine Cravings) Qty: 100 0RF clopidogrel 75 mg Tablet 75 mg PO DAILY Qty: 30 0RF Referrals: [facility] [Provider Group] - 5 days
[2023-08-30] MEDS: oxyCODONE HCl Immed Release 5 MG TABLET 10 MG PO (19:42)
[2023-08-30 20:16] VITALS: BP 176/69; PULSE 81; RESP 18; O2SAT 97
== END 2023-08-30 20:17 | disposition home or self-care (01) ==
PROVIDERS: Emergency Provider Emergency Medicine
DX: S42.231A 3-part fracture of surgical neck of right humerus, initial encounter for closed fracture (principal); W01.0XXA Fall on same level from slipping, tripping and stumbling without subsequent striking against object, initial encounter; Y93.9 Activity, unspecified; Y92.009 Unspecified place in unspecified non-institutional (private) residence as the place of occurrence of the external cause; Y99.9 Unspecified external cause status
CPT/HCPCS: 73030; 73060; 99283; 99284

== ENCOUNTER 2023-09-13 08:57 | Outpatient (REF) | payer OTHER, SELFPAY ==
--- NOTE | ~2023-09-13 | XR_ITS ---
EXAMINATION: XR SHOULDER, RIGHT CLINICAL INFORMATION: Pain in right shoulder. COMPARISON: 08/30/2023 right shoulder and humerus. TECHNIQUE: Neutral AP and transscapular Y views, 2 views total, of the right shoulder. FINDINGS: Redemonstration of previously identified 3 part right humeral surgical neck fracture with fracture of the greater tuberosity. Degenerative changes in the acromioclavicular joint. Glenohumeral alignment is preserved. XR/XR shoulder RT min 2V IMPRESSION: Redemonstration of previously identified 3 part right humeral surgical neck fracture with fracture of the greater tuberosity.
== END 2023-09-13 08:58 | disposition home or self-care (01) ==
LOC: HO.HOSX 08:57
PROVIDERS: Visit Provider Physician Assistant
DX: S42.201A Unspecified fracture of upper end of right humerus, initial encounter for closed fracture (principal)
CPT/HCPCS: 73030; 99202

== ENCOUNTER 2023-09-13 11:22 | Outpatient (AMB) | payer OTHER, SELFPAY ==
--- NOTE | 2023-09-13 11:41 | A.OFFVIS_ITS ---
Intake Vital Signs 09/13/23 11:47 Height 5 ft Weight 175 lb BMI 34.2 Intake Visit Reasons: FC-Closed fracture of shoulder, right-DOI 08/30/23 Intake Note: Jennifer is a 77 year old right hand dominant female who presents today for a evaluation of her right shoulder fx, DOI 08/30/23. Patient reports she was wearing open slippers in the back, slipped and landed on her right shoulder. Currently, is having throbbing pain going down her arm to her elbow. ED prescribed her pain medication and is gave her mild relief. Allergies No Known Allergies Allergy (Mild, Verified 09/13/23 11:46) NKA HPI FC-Closed fracture of shoulder, right-DOI 08/30/23 HPI Details 77-year-old right hand dominant female mirtha osborne presents to the office today for evaluation of right shoulder injury s/p wearing an open slipper when she slipped and fell on her right shoulder, 08/30/23. She was seen at ED where she was prescribed a pain medication which provided her relief. She currently states she has worsening throbbing pain in her shoulder which radiates down to her elbow and arm. She has tried Tylenol, Liscomb balm, and ice and hot pack for her pain. [facility] Social History Household Members: Family and Children Housing: House Alcohol intake: current Alcohol intake frequency: holidays/special occasions only Comment: 1:1 sitter for recent SI per report Patient Tobacco Use Status: Current everyday Tobacco user Tobacco use type: Cigarette Cigarette Packs Per Day: 0.5 Cigarettes Per Day: 10.0 service: No Review of Systems Const All systems reviewed & are unremarkable except as noted in HPI and below Physical Exam Vital Signs: BMI result Body Mass Index 34.2 Const General: cooperative, healthy appearing, comfortable, no acute distress, well developed and alert Orientation/consciousness: patient oriented x3 HEENT Head: Yes normal to inspection, Yes normocephalic and Yes atraumatic Eyes General: appearance normal, both eyes and all related structures Resp Effort & Inspection: normal respiratory effort and able to speak in complete sentences Cardio Rate: regular rate Peripheral pulses: Peripheral pulses 2+ throughout GI Palpation (GI): Soft to palpation Skin Lesions: no lesions Rashes: no rashes Neuro General: patient oriented x3 Extrem Other: Right shoulder normal to inspection. Swelling and tenderness over the proximal humerus. Anterior deltoid sensation intact. Elbow and wrist ROM intact. NVI. Results Reviewed Results Reviewed: Xrays were obtained in the office today and personally reviewed by me of the right shoulder significant for proximal humerus fracture with mild displacment Assessment & Plan Assessment & Plan (1) Closed fracture of right proximal humerus: Code(s): S42.201A - Unspecified fracture of upper end of right humerus, initial encounter for closed fracture Qualifiers: Encounter type: initial encounter Fracture alignment: displaced Plan She will continue to use the sling with sleeping and outdoor activities. She will work on wrist and elbow ROM of the right arm. She will perform no lifting or overhead reaching. She was also given a prescription of tramadol to take three times a day to help with her discomfort. She will see me back in 4-6 weeks with new x-rays, sooner if needed. Orders: Orders XR shoulder RT min 2V 09/13/23 M25.511 - Pain in right shoulder Medications: New tramadol 50 mg PO BID 7 days 14 tabs 0RF Patient Instructions: Scribed for Fernando Cardenas PA-C, by Juan Solis [employer] officer, on 09/13/2023 at 11:15 AM EST. IFernando PA-C, have personally reviewed and agree with the information entered by the scribe. Coding Level of Care Code New Pt Level 3 (55572) Diagnoses Closed fracture of right proximal humerus S42.201A Encounter type: initial encounter Fracture alignment: displaced
[2023-09-13 11:47] VITALS: BMI 34.2
== END 2023-09-13 12:10 | disposition home or self-care (01) ==
PROVIDERS: Visit Provider Physician Assistant
DX: S42.201A Unspecified fracture of upper end of right humerus, initial encounter for closed fracture (principal)
CPT/HCPCS: 99203

== ENCOUNTER 2023-10-25 09:18 | Outpatient (REF) | payer OTHER, SELFPAY | END 2023-10-25 09:19 | disposition home or self-care (01) | LOC: HO.HOSX 09:18 | PROVIDERS: Visit Provider Physician Assistant | DX: Z13.89 Encounter for screening for other disorder (principal) ==

== ENCOUNTER 2023-12-09 12:51 | Outpatient (AMB) | payer MEDICARE, SELFPAY ==
[2023-12-09 13:40] VITALS: BP 142/80; PULSE 80; O2SAT 96
--- NOTE | 2023-12-09 13:40 | MHC.OFFWIV ---
Intake Vital Signs 12/09/23 13:40 Height 5 ft BP 142/80 H Blood Pressure Location Rt brachial Position Sitting Pulse 80 Pulse Source Pulse Oximeter Pulse Oximetry (%) 96 Oxygen Delivery Method Room Air Intake Visit Reasons: EP ?Yeast infection of breast Intake Note: pt is here for yeast infection of breast Patient Tobacco Use Status: Current everyday Tobacco user Allergies No Known Allergies Allergy (Mild, Verified 12/09/23 13:41) NKA Do you need a note to return to daycare/school/sports/work: No HPI HPI Comments History of Present Illness Details Patient presents to the walk-in today for sick visit Complaining of painful rash under both breasts for last several weeks Has tried bacitracin/Neosporin without any improvement [facility] Social History Household Members: Family and Children Housing: House Alcohol intake: current Alcohol intake frequency: holidays/special occasions only Comment: 1:1 sitter for recent SI per report Patient Tobacco Use Status: Current everyday Tobacco user Tobacco use type: Cigarette Cigarette Packs Per Day: 0.5 Cigarettes Per Day: 10.0 service: No Review of Systems Const All systems reviewed & are unremarkable except as noted in HPI and below Physical Exam Vital Signs: Last Vital Signs Pulse 80 12/09/23 13:40 BP 142/80 H 12/09/23 13:40 Pulse Ox 96 12/09/23 13:40 Oxygen Delivery Method Room Air 12/09/23 13:40 General: awake, alert, oriented. Answers questions appropriately. Fully engaged in examination. Skin: warm, dry, intact. Erythematous, inflamed rash under both breasts with diffuse white patches HEENT: Normocephalic. Hearing intact. Cardiac: External chest normal in appearance. Respiratory: No cough, audible wheezing or stridor. Speaking in full sentences. No angio or periorbital edema noted Abdomen: without gross distension. MS: No obvious swelling or deformities. Neurological: Oriented to person, place, time and situation. Thought process intact. No gait abnormalities appreciated. Psychiatric: Appropriate mood and affect. Good judgment and insight. Assessment & Plan Assessment & Plan (1) Candidiasis of breast: Code(s): B37.89 - Other sites of candidiasis Plan Nystatin as directed Keep area dry Follow up with PCP or return here for any new or worsening symptoms Medications: New nystatin 1 appl topical QID 30 grams 0RF Coding Level of Care Code Est Pt Level 3 (16747) Diagnoses Candidiasis of breast B37.89
== END 2023-12-09 14:29 | disposition home or self-care (01) ==
PROVIDERS: Visit Provider Registered Nurse Emergency
DX: B37.89 Other sites of candidiasis (principal)
CPT/HCPCS: 99213